=== PATIENT | female | born 1975 | race Caucasian/White ===

== ENCOUNTER 2017-10-10 18:39 | Inpatient (IN) | payer OTHER ==
[~2017-10-10] VITALS: Ht 162.6 cm; Wt 49.4 kg
[~2017-10-10 18:39] MED LIST: ALBU.083IS; ALBU.083IS IH; ALBU90OI; ALBU90OI INH; ALPR1 PO; ARIP10 PO; AZIT250; AZIT250 PO; BENZ100A PO; CARV3.125 PO; CLON.5 PO; CODBUTACEC PO; ESCI10 PO; Esgic Tablet1 EACH PO; FLUT1DIS2 INH; GUAI600T33 PO; Imitrex25 MG PO; LEVFLO500 PO; LEVO750 PO; LORA1 PO; LORA2; MONT10T PO; OXYACE5T PO; PRED10 PO; PRED20 PO; Prednisone20 MG PO; Prednisone50 MG PO; RXPRED10; SERT100 PO; SULTRIDS PO; SUMA25 PO; TIOT18 IH; TRAZ100 PO
[2017-10-10 19:10] LABS: BASOPHILS ABSOLUTE AUTO 0.05 K/mm3 (0.00-0.23); BASOPHILS PERCENT AUTO 0 % (0-2); EOSINOPHILS ABSOLUTE AUTO 0.01 K/mm3 (0.00-0.68); EOSINOPHILS PERCENT AUTO 0 % (0-6); Hematocrit 44.8 % (33.0-51.0); IMMATURE GRAN ABSOLUTE AUTO 0.07 K/mm3 (0.00-0.10); IMMATURE GRAN PERCENT AUTO 1 % (0-1); LYMPHOCYTES ABSOLUTE AUTO 1.54 K/mm3 (0.84-5.20); LYMPHOCYTES PERCENT AUTO 10 % (21-46); MONOCYTES ABSOLUTE AUTO 1.22 K/mm3 (0.16-1.47); MONOCYTES PERCENT AUTO 8 % (4-13); Mean Corpuscular HGB 27.6 pg (26.0-34.0); Mean Corpuscular HGB Conc 31.3 g/dL (31.5-36.5); Mean Corpuscular Volume 88 fL (80-100); Mean Platelet Volume 10.3 fL (9.1-12.4); NEUTROPHILS ABSOLUTE AUTO 12.66 K/mm3 (1.96-9.15); NEUTROPHILS PERCENT AUTO 81 % (41-73); Platelet Count 231 K/mm3 (150-400); RDW Coefficient Variation 13.7 % (11.7-14.2); Red Blood Cell Count 5.07 M/mm3 (3.80-5.20); White Blood Cell Count 15.55 K/mm3 (4.00-11.30)
[2017-10-10 19:17] LABS: PCO2 Arterial 58 mmHg (35-45); PO2 Arterial 43.1 mmHg (80-100); pH Blood Arterial 7.42 (7.35-7.45)
[2017-10-10 19:30] LABS: Alanine Aminotransfer (ALT/SGP 17 U/L (12-78); Albumin, Blood 2.7 g/dL (3.4-5.0); Albumin/Globulin Ratio 0.6 (0.8-1.8); Alk Phos 85 U/L (50-136); Anion Gap 6 mmol/L (6-16); Aspartate Aminotrans (AST/SGOT 15 U/L (12-37); Bilirubin, Total 0.5 mg/dL (0.1-1.0); Blood Urea Nitrogen 8 mg/dL (8-24); Bun/Creatinine Ratio 17.9 (12.0-20.0); CO2, Blood 37 mmol/L (21-32); Calcium, Blood 8.7 mg/dL (8.5-10.1); Chloride, Blood 95 mmol/L (98-108); Creatinine, Blood 0.45 mg/dL (0.40-1.00); Globulin, Blood 4.2 g/dL (2.2-4.0); Glomerular Filtration Rate >60 (60-); Glucose, Blood 119 mg/dL (70-99); Magnesium, Blood 1.9 mg/dL (1.6-2.4); Potassium, Blood 3.4 mmol/L (3.5-5.5); Sodium, Blood 138 mmol/L (136-145); Total Protein, Blood 6.9 g/dL (6.4-8.2); Troponin I <0.015 ng/mL (0.000-0.040)
[2017-10-10 23:02] LABS: Thyroid Stimulating Hormone 0.857 uIU/mL (0.360-4.800)
[2017-10-11 05:21] LABS: BASOPHILS ABSOLUTE AUTO 0.04 K/mm3 (0.00-0.23); BASOPHILS PERCENT AUTO 0 % (0-2); EOSINOPHILS ABSOLUTE AUTO 0.06 K/mm3 (0.00-0.68); EOSINOPHILS PERCENT AUTO 1 % (0-6); Hematocrit 44.7 % (33.0-51.0); Hemoglobin 13.8 g/dL (11.5-16.0); IMMATURE GRAN ABSOLUTE AUTO 0.05 K/mm3 (0.00-0.10); IMMATURE GRAN PERCENT AUTO 0 % (0-1); LYMPHOCYTES ABSOLUTE AUTO 2.56 K/mm3 (0.84-5.20); LYMPHOCYTES PERCENT AUTO 23 % (21-46); MONOCYTES ABSOLUTE AUTO 1.22 K/mm3 (0.16-1.47); MONOCYTES PERCENT AUTO 11 % (4-13); Mean Corpuscular HGB 27.3 pg (26.0-34.0); Mean Corpuscular HGB Conc 30.9 g/dL (31.5-36.5); Mean Corpuscular Volume 88 fL (80-100); Mean Platelet Volume 11.3 fL (9.1-12.4); NEUTROPHILS ABSOLUTE AUTO 7.38 K/mm3 (1.96-9.15); NEUTROPHILS PERCENT AUTO 65 % (41-73); Platelet Count 222 K/mm3 (150-400); RDW Coefficient Variation 13.9 % (11.7-14.2); RDW Standard Deviation 44.6 fL (35.1-46.3); Red Blood Cell Count 5.06 M/mm3 (3.80-5.20); White Blood Cell Count 11.31 K/mm3 (4.00-11.30)
[2017-10-11 05:53] LABS: Anion Gap 0 mmol/L (6-16); Blood Urea Nitrogen 10 mg/dL (8-24); Bun/Creatinine Ratio 24.3 (12.0-20.0); CO2, Blood 38 mmol/L (21-32); Calcium, Blood 8.7 mg/dL (8.5-10.1); Chloride, Blood 100 mmol/L (98-108); Creatinine, Blood 0.41 mg/dL (0.40-1.00); Glomerular Filtration Rate >60 (60-); Glucose, Blood 97 mg/dL (70-99); Sodium, Blood 138 mmol/L (136-145)
[2017-10-11] MEDS ORDERED: OTIPRIO1 ML LEFTEYE (10:44)
[2017-10-11] MEDS ORDERED: LEVO750 PO (10:45)
== END 2017-10-11 11:19 | disposition home or self-care (01) | DRG 193 ==
LOC: ER 18:39 → MEDS 21:05 → ENPENDDIS 10-11 09:30 → MEDS 10-11 11:19
PROVIDERS: Emergency Medicine; Internal Medicine
DX: J18.9 Pneumonia, unspecified organism (principal); J96.21 Acute and chronic respiratory failure with hypoxia; J44.0 Chronic obstructive pulmonary disease with (acute) lower respiratory infection; J96.12 Chronic respiratory failure with hypercapnia; J44.1 Chronic obstructive pulmonary disease with (acute) exacerbation; E87.6 Hypokalemia; H10.9 Unspecified conjunctivitis; R00.0 Tachycardia, unspecified; Z99.81 Dependence on supplemental oxygen; F31.9 Bipolar disorder, unspecified; F42.9 Obsessive-compulsive disorder, unspecified; F41.0 Panic disorder [episodic paroxysmal anxiety]; G47.33 Obstructive sleep apnea (adult) (pediatric); K21.9 Gastro-esophageal reflux disease without esophagitis; G43.909 Migraine, unspecified, not intractable, without status migrainosus; Z87.891 Personal history of nicotine dependence; Z88.5 Allergy status to narcotic agent; Z88.0 Allergy status to penicillin; Z88.7 Allergy status to serum and vaccine; Z79.51 Long term (current) use of inhaled steroids; Z79.52 Long term (current) use of systemic steroids; Z79.899 Other long term (current) drug therapy
CPT/HCPCS: 36415; 36600; 71046; 80048; 80053; 82803; 83605; 83735; 83880; 84443; 84484; 85025; 87040; 93005; 93010; 94640; 94762; 99285; J1650

== ENCOUNTER 2018-01-31 13:32 | Emergency (ER) | payer OTHER ==
[~2018-01-31] VITALS: Ht 162.6 cm; Wt 49.9 kg
[~2018-01-31 13:32] MED LIST changes: +OTIPRIO1 ML LEFTEYE
[2018-01-31 14:11] LABS: BASOPHILS ABSOLUTE AUTO 0.02 K/mm3 (0.00-0.23); BASOPHILS PERCENT AUTO 0 % (0-2); EOSINOPHILS ABSOLUTE AUTO 0.09 K/mm3 (0.00-0.68); EOSINOPHILS PERCENT AUTO 2 % (0-6); Hemoglobin 17.3 g/dL (11.5-16.0); IMMATURE GRAN ABSOLUTE AUTO 0.01 K/mm3 (0.00-0.10); IMMATURE GRAN PERCENT AUTO 0 % (0-1); LYMPHOCYTES ABSOLUTE AUTO 1.89 K/mm3 (0.84-5.20); LYMPHOCYTES PERCENT AUTO 37 % (21-46); MONOCYTES ABSOLUTE AUTO 0.41 K/mm3 (0.16-1.47); MONOCYTES PERCENT AUTO 8 % (4-13); Mean Corpuscular HGB 27.6 pg (26.0-34.0); Mean Corpuscular HGB Conc 29.9 g/dL (31.5-36.5); Mean Corpuscular Volume 92 fL (80-100); Mean Platelet Volume 11.2 fL (9.1-12.4); NEUTROPHILS ABSOLUTE AUTO 2.67 K/mm3 (1.96-9.15); NEUTROPHILS PERCENT AUTO 52 % (41-73); Platelet Count 150 K/mm3 (150-400); RDW Coefficient Variation 13.5 % (11.7-14.2); RDW Standard Deviation 45.7 fL (35.1-46.3); Red Blood Cell Count 6.27 M/mm3 (3.80-5.20); White Blood Cell Count 5.09 K/mm3 (4.00-11.30)
[2018-01-31 14:13] LABS: Hematocrit 57.8 % (33.0-51.0)
== END 2018-01-31 15:17 | disposition home or self-care (01) ==
LOC: ER 13:32
PROVIDERS: Emergency Medicine
DX: G43.909 Migraine, unspecified, not intractable, without status migrainosus (principal); J44.9 Chronic obstructive pulmonary disease, unspecified; F31.9 Bipolar disorder, unspecified; F17.200 Nicotine dependence, unspecified, uncomplicated; Z88.0 Allergy status to penicillin; Z88.5 Allergy status to narcotic agent; Z88.7 Allergy status to serum and vaccine; Z79.51 Long term (current) use of inhaled steroids; Z79.899 Other long term (current) drug therapy
CPT/HCPCS: 85025; 96372; 99284-25; J0780; J1200; J1885

== ENCOUNTER 2018-06-10 02:35 | Emergency (ER) | payer OTHER ==
[~2018-06-10] VITALS: Ht 162.6 cm; Wt 49.9 kg
== END 2018-06-10 04:00 | disposition home or self-care (01) ==
LOC: ER 02:35
DX: R59.0 Localized enlarged lymph nodes (principal); Z88.0 Allergy status to penicillin; Z88.5 Allergy status to narcotic agent; Z88.8 Allergy status to other drugs, medicaments and biological substances; Z79.899 Other long term (current) drug therapy; J44.9 Chronic obstructive pulmonary disease, unspecified; F32.9 Major depressive disorder, single episode, unspecified; F17.200 Nicotine dependence, unspecified, uncomplicated
CPT/HCPCS: 71046; 96372; 99283-25; J1885

== ENCOUNTER 2018-11-13 13:09 | Inpatient (IN) | payer OTHER ==
[~2018-11-13] VITALS: Ht 162.6 cm; Wt 45.0 kg
[~2018-11-13 13:09] MED LIST changes: -ALBU90OI; -TIOT18 IH; +TIOT18 INH
[2018-11-13 13:56] LABS: PCO2 Arterial 91.6 mmHg (35-45); PO2 Arterial 48.4 mmHg (80-100)
[2018-11-13 14:32] LABS: BASOPHILS ABSOLUTE AUTO 0.03 K/mm3 (0.00-0.23); BASOPHILS PERCENT AUTO 0 % (0-2); EOSINOPHILS PERCENT AUTO 1 % (0-6); Hemoglobin 15.9 g/dL (11.5-16.0); IMMATURE GRAN ABSOLUTE AUTO 0.05 K/mm3 (0.00-0.10); IMMATURE GRAN PERCENT AUTO 1 % (0-1); LYMPHOCYTES ABSOLUTE AUTO 0.99 K/mm3 (0.84-5.20); LYMPHOCYTES PERCENT AUTO 11 % (21-46); MONOCYTES ABSOLUTE AUTO 0.52 K/mm3 (0.16-1.47); MONOCYTES PERCENT AUTO 6 % (4-13); Mean Corpuscular HGB Conc 28.1 g/dL (31.5-36.5); Mean Corpuscular Volume 103 fL (80-100); Mean Platelet Volume 10.8 fL (9.1-12.4); NEUTROPHILS ABSOLUTE AUTO 7.39 K/mm3 (1.96-9.15); NEUTROPHILS PERCENT AUTO 81 % (41-73); Platelet Count 153 K/mm3 (150-400); RDW Coefficient Variation 13.8 % (11.7-14.2); RDW Standard Deviation 53.4 fL (35.1-46.3); Red Blood Cell Count 5.48 M/mm3 (3.80-5.20); White Blood Cell Count 9.08 K/mm3 (4.00-11.30)
[2018-11-13 14:55] LABS: Alanine Aminotransfer (ALT/SGP 19 U/L (12-78); Albumin/Globulin Ratio 0.6 (0.8-1.8); Alk Phos 92 U/L (50-136); Aspartate Aminotrans (AST/SGOT 13 U/L (12-37); Bilirubin, Total 0.4 mg/dL (0.1-1.0); Blood Urea Nitrogen 12 mg/dL (8-24); Bun/Creatinine Ratio 33.4 (12.0-20.0); Calcium, Blood 9.3 mg/dL (8.5-10.1); Chloride, Blood 92 mmol/L (98-108); Creatinine, Blood 0.36 mg/dL (0.40-1.00); Globulin, Blood 4.8 g/dL (2.2-4.0); Glomerular Filtration Rate >60 (60-); Glucose, Blood 96 mg/dL (70-99); Potassium, Blood 3.8 mmol/L (3.5-5.5); Sodium, Blood 138 mmol/L (136-145); Total Protein, Blood 7.8 g/dL (6.4-8.2)
[2018-11-13 14:58] LABS: Anion Gap Unable to Calculate mmol/L (6-16)
[2018-11-13 14:59] LABS: CO2, Blood >45 mmol/L (21-32)
[2018-11-13 15:06] LABS: Hematocrit 56.6 % (33.0-51.0)
[2018-11-13 15:57] LABS: International Normalized Ratio 0.93; Prothrombin Time Results 9.8 Sec (9.7-11.5)
[2018-11-13] MEDS ORDERED: Zithromax250 MG PO (17:16)
[2018-11-13 17:57] LABS: Base Excess Venous 19.1 mmol/L; Bicarbonate Venous 37.4 mmol/L (24.0-30.0); PCO2 Venous 97.7 mmHg (38-42); PO2 Venous 53.3 mmHg (38-42); pH Blood Venous 7.28 (7.34-7.37)
[2018-11-13] MEDS ORDERED: BUDE6HFA INH (18:32)
[2018-11-13] MEDS ORDERED: DALIRESP500 MCG PO (18:34)
[2018-11-13] MEDS ORDERED: ALBU2.5V5 NEB (18:34)
[2018-11-13] MEDS ORDERED: THEO300ERA PO (18:35)
[2018-11-13] MEDS ORDERED: Flonase 0.05% N16 GM (18:45)
[2018-11-13 19:31] LABS: Theophylline <2.0 ug/mL (10.0-20.0)
[2018-11-14 00:05] LABS: Source, Urine Catheter
[2018-11-14 00:10] LABS: Bilirubin, Urine Neg (Neg); Blood, Urine Neg (Neg); Glucose Qualitative, Urine Neg (Neg); Ketones, Urine Neg (Neg); Leukocyte Esterase, Urine Neg (Neg); Nitrite, Urine Neg (Neg); Protein, Urine Neg (Neg); Urobilinogen, Urine NORM (Normal)
[2018-11-14 00:18] LABS: Appearance, Urine Clear (Clear); Color, Urine Yellow (P-Yellow)
[2018-11-14 00:24] LABS: U Amphetamine Screen Not Detected; U Barbituate Screen Not Detected; U Benzodiazapine Screen Not Detected; U Cocaine Screen Not Detected; U Methadone Screen Not Detected; U Methamphetamine Screen Not Detected; U Opiates Screen Not Detected
[2018-11-14 00:25] LABS: U Buprenorphine Screen Not Detected; U Cannabinoids Screen DETECTED; U Oxycodone Screen Not Detected; U Phencyclidine Screen Not Detected; U Propoxyphene Screen Not Detected
--- NOTE | 2018-11-14 02:41 | NUR ---
PT ARRIVED TO UNIT VIA STRETCHER FROM ED; HANDOFF FROM SHAVONNE CARMICHAEL; PT STOOD AND TRANSFERED INDEPENDENTLY TO HOSPITAL BED IN ROOM; PT ON 5 LPM NC; O2 SATS 89%; PT ON BIPAP FIO2 40%;18 G IN L AC INFUSING APPROPRIATELY; RECIEVED 1000ML NS; PT STATES SHE USES RECREATIONAL DRUGS; PT STATES SHE DOES NOT LIKE TO EAT MANY THINGS, BUT STATED SHE WAS HUNGRY; SHE CONSUMED ONE JELLO; PT SLEEPING IN BETWEEN INTERVENTIONS; UA COLLECTED AND SENT TO LAB; BED IN LOWEST POSITION; BED ALARM ON; CALL LIGHT WITHIN REACH; WILL CONTINUE TO MONITOR AND ASSESS UNTIL HANDOFF TO DAY SHIFT RN.
[2018-11-14 05:25] LABS: PO2 Arterial 62.3 mmHg (80-100); pH Blood Arterial 7.33 (7.35-7.45)
[2018-11-14 05:26] LABS: PCO2 Arterial 88.2 mmHg (35-45)
[2018-11-14] MEDS ORDERED: ACET325 PO (13:01)
[2018-11-14] MEDS ORDERED: GUAI600T33 PO (13:02)
[2018-11-14] MEDS ORDERED: AZIT500 PO (13:02)
[2018-11-14] MEDS ORDERED: NICO21TP TOP (13:03)
[2018-11-14] MEDS ORDERED: PRED20 PO (13:03)
--- NOTE | 2018-11-14 14:21 | NUR ---
SUMMARY/DISCHARGE PT BEING DISCHARGED TO HOME, PT VERBALIZED UNDERSTANDING OF DISCHARGE INSTRUCTIONS REGARDING MEDICATIONS AND FOLLOW UPS, PT REPORTS SHE ALREADY HAS AN APPOINTMENT WITH [facility]CKN[facility] FAXED TO PHARMACY OF CHOICE, CURRENTLY AWAITING HER MOTHER TO TAKE HER HOME
--- NOTE | 2018-11-14 14:42 | NUR ---
PT TAKEN OUT SAFELY VIA WHEELCHAIR
== END 2018-11-14 14:40 | disposition home or self-care (01) | DRG 189 ==
LOC: ER 13:09 → PCU 18:35
PROVIDERS: Emergency Medicine; Nurse Practitioner Acute Care; Physician Assistant; ADMIT Hospitalist
PROC: 5A09357 Assistance with Respiratory Ventilation, Less than 24 Consecutive Hours, Continuous Positive Airway Pressure (ICD-10-PCS; principal; 2018-11-13)
DX: J96.21 Acute and chronic respiratory failure with hypoxia (principal); J18.9 Pneumonia, unspecified organism; R64 Cachexia; Z68.1 Body mass index [BMI] 19.9 or less, adult; J96.22 Acute and chronic respiratory failure with hypercapnia; F31.9 Bipolar disorder, unspecified; G47.33 Obstructive sleep apnea (adult) (pediatric); Z99.81 Dependence on supplemental oxygen; F17.210 Nicotine dependence, cigarettes, uncomplicated; G43.909 Migraine, unspecified, not intractable, without status migrainosus; J43.9 Emphysema, unspecified
CPT/HCPCS: 36415; 36600; 71260; 80053; 80198; 81003; 82803; 83605; 84145; 85025; 85610; 85730; 87040; 87086; 87449; 93005; 93010; 94640; 94660; 94762; 99285-25; J1650; J7030; J7512; Q9967

== ENCOUNTER 2019-01-14 15:09 | Emergency (ER) | payer OTHER ==
[~2019-01-14] VITALS: Ht 165.1 cm; Wt 65.8 kg
[~2019-01-14 15:09] MED LIST changes: +ACET325 PO; +ALBU2.5V5 NEB; +AZIT500 PO; +BUDE6HFA INH; +DALIRESP500 MCG PO; +Flonase 0.05% N16 GM; +NICO21TP TOP; +THEO300ERA PO; +Zithromax250 MG PO
[2019-01-14 16:15] LABS: Calcium, Ionized (POC) 1.03 mmol/L (1.10-1.46); Chloride (POC) 99 mmol/L (98-108); Creatinine (POC) 0.3 mg/dL (0.6-1.0); Glucose (ISTAT POC) 123 mg/dL (70-99); Hemoglobin (POC) 13.6 g/dL (12.0-16.0); Potassium (POC) 3.7 mmol/L (3.5-5.5); Sodium (POC) 138 mmol/L (135-148); Total CO2 (POC) 30 mmol/L (21-32)
== END 2019-01-14 17:20 | disposition home or self-care (01) ==
LOC: ER 15:09
PROVIDERS: Physician Assistant
DX: K04.7 Periapical abscess without sinus (principal); J44.9 Chronic obstructive pulmonary disease, unspecified; F31.9 Bipolar disorder, unspecified; Z79.899 Other long term (current) drug therapy; Z88.0 Allergy status to penicillin
CPT/HCPCS: 36415; 70487; 80047; 85014; 96365; 96365-59; 96375-59; 99284-25; A9270-GY; J1885; Q9967

== ENCOUNTER 2019-01-15 09:13 | Emergency (ER) | payer OTHER ==
[~2019-01-15] VITALS: Ht 162.6 cm; Wt 45.4 kg
== END 2019-01-15 10:40 | disposition home or self-care (01) ==
LOC: ER 09:13
DX: K04.7 Periapical abscess without sinus (principal); J44.9 Chronic obstructive pulmonary disease, unspecified; F31.9 Bipolar disorder, unspecified; Z87.891 Personal history of nicotine dependence; Z88.0 Allergy status to penicillin; Z88.6 Allergy status to analgesic agent; Z88.7 Allergy status to serum and vaccine; Z79.899 Other long term (current) drug therapy; K02.9 Dental caries, unspecified
CPT/HCPCS: 96365; 96375; 99281-25; A9270; J1885

== ENCOUNTER 2019-01-16 08:10 | Emergency (ER) | payer OTHER ==
[~2019-01-16] VITALS: Ht 157.5 cm; Wt 54.4 kg
== END 2019-01-16 09:40 | disposition home or self-care (01) ==
LOC: ER 08:10
DX: K04.7 Periapical abscess without sinus (principal); Z76.0 Encounter for issue of repeat prescription; J44.9 Chronic obstructive pulmonary disease, unspecified; F31.9 Bipolar disorder, unspecified; Z87.891 Personal history of nicotine dependence; Z88.0 Allergy status to penicillin; Z79.899 Other long term (current) drug therapy
CPT/HCPCS: 96365

== ENCOUNTER 2019-06-13 01:46 | Inpatient (IN) | payer OTHER ==
[~2019-06-13] VITALS: Ht 162.6 cm; Wt 45.0 kg
[~2019-06-13 01:46] MED LIST changes: +ALBU2.5V5 INH; -ALBU2.5V5 NEB
[2019-06-13 03:23] LABS: PCO2 Arterial 76.8 mmHg (35-45); PO2 Arterial 65.7 mmHg (80-100); pH Blood Arterial 7.36 (7.35-7.45)
[2019-06-13 03:26] LABS: BASOPHILS ABSOLUTE AUTO 0.03 K/mm3 (0.00-0.23); BASOPHILS PERCENT AUTO 0 % (0-2); EOSINOPHILS PERCENT AUTO 0 % (0-6); Hemoglobin 13.3 g/dL (11.5-16.0); IMMATURE GRAN ABSOLUTE AUTO 0.05 K/mm3 (0.00-0.10); IMMATURE GRAN PERCENT AUTO 0 % (0-1); LYMPHOCYTES ABSOLUTE AUTO 2.01 K/mm3 (0.84-5.20); LYMPHOCYTES PERCENT AUTO 15 % (21-46); MONOCYTES ABSOLUTE AUTO 0.81 K/mm3 (0.16-1.47); MONOCYTES PERCENT AUTO 6 % (4-13); Mean Corpuscular HGB 28.1 pg (26.0-34.0); Mean Corpuscular HGB Conc 30.2 g/dL (31.5-36.5); Mean Corpuscular Volume 93 fL (80-100); Mean Platelet Volume 10.9 fL (9.1-12.4); NEUTROPHILS ABSOLUTE AUTO 10.39 K/mm3 (1.96-9.15); NEUTROPHILS PERCENT AUTO 78 % (41-73); Platelet Count 125 K/mm3 (150-400); RDW Coefficient Variation 13.4 % (11.7-14.2); RDW Standard Deviation 46.2 fL (35.1-46.3); Red Blood Cell Count 4.73 M/mm3 (3.80-5.20); White Blood Cell Count 13.29 K/mm3 (4.00-11.30)
[2019-06-13 03:41] LABS: Alanine Aminotransfer (ALT/SGP 22 U/L (12-78); Albumin, Blood 2.5 g/dL (3.4-5.0); Albumin/Globulin Ratio 0.6 (0.8-1.8); Alk Phos 62 U/L (50-136); Anion Gap 2 mmol/L (6-16); Aspartate Aminotrans (AST/SGOT 21 U/L (12-37); Bilirubin, Total 0.6 mg/dL (0.1-1.0); Blood Urea Nitrogen 12 mg/dL (8-24); Bun/Creatinine Ratio 33.1 (12.0-20.0); CO2, Blood 40 mmol/L (21-32); Calcium, Blood 8.1 mg/dL (8.5-10.1); Chloride, Blood 92 mmol/L (98-108); Creatinine, Blood 0.36 mg/dL (0.40-1.00); Globulin, Blood 4.1 g/dL (2.2-4.0); Glomerular Filtration Rate >60 (60-); Glucose, Blood 115 mg/dL (70-99); Sodium, Blood 134 mmol/L (136-145); Total Protein, Blood 6.6 g/dL (6.4-8.2)
[2019-06-13 05:02] LABS: Influenza A Negative (NEGATIVE); Influenza B Negative (NEGATIVE)
[2019-06-13 08:41] LABS: PCO2 Arterial 82 mmHg (35-45); PO2 Arterial 59.5 mmHg (80-100); pH Blood Arterial 7.33 (7.35-7.45)
[2019-06-13 17:00] LABS: Adenovirus Not Detected (NOT DETECT); Bordetella pertussis Not Detected (NOT DETECT); Chlamydophila pneumoniae Not Detected (NOT DETECT); Coronavirus 229E Not Detected (NOT DETECT); Coronavirus HKU1 Not Detected (NOT DETECT); Coronavirus NL63 Not Detected (NOT DETECT); Coronavirus OC43 Not Detected (NOT DETECT); Human Metapneumovirus Not Detected (NOT DETECT); Human Rhinovirus/Enterovirus Not Detected (NOT DETECT); Influenza A Not Detected (NOT DETECT); Influenza A/2009-H1 Not Detected (NOT DETECT); Influenza A/H1 Not Detected (NOT DETECT); Influenza A/H3 Not Detected (NOT DETECT); Influenza B Not Detected (NOT DETECT); Mycoplasma pneumoniae Not Detected (NOT DETECT); Parainfluenza Virus 1 Not Detected (NOT DETECT); Parainfluenza Virus 2 Not Detected (NOT DETECT); Parainfluenza Virus 3 Not Detected (NOT DETECT); Parainfluenza Virus 4 Not Detected (NOT DETECT); Respiratory Syncytial Virus Not Detected (NOT DETECT)
[2019-06-14 05:02] LABS: Hematocrit 42.3 % (33.0-51.0); Hemoglobin 12.5 g/dL (11.5-16.0); Mean Corpuscular HGB 27.9 pg (26.0-34.0); Mean Corpuscular HGB Conc 29.6 g/dL (31.5-36.5); Mean Corpuscular Volume 94 fL (80-100); Mean Platelet Volume 11.1 fL (9.1-12.4); Platelet Count 132 K/mm3 (150-400); RDW Coefficient Variation 13.6 % (11.7-14.2); RDW Standard Deviation 47.8 fL (35.1-46.3); Red Blood Cell Count 4.48 M/mm3 (3.80-5.20); White Blood Cell Count 8.55 K/mm3 (4.00-11.30)
[2019-06-14 06:46] LABS: Albumin, Blood 2.3 g/dL (3.4-5.0); Anion Gap 0 mmol/L (6-16); Blood Urea Nitrogen 11 mg/dL (8-24); Bun/Creatinine Ratio 32.1 (12.0-20.0); CO2, Blood 41 mmol/L (21-32); Calcium, Blood 8.7 mg/dL (8.5-10.1); Chloride, Blood 96 mmol/L (98-108); Creatinine, Blood 0.34 mg/dL (0.40-1.00); Glomerular Filtration Rate >60 (60-); Glucose, Blood 124 mg/dL (70-99); Magnesium, Blood 2.4 mg/dL (1.6-2.4); Phosphorus, Blood 2.6 mg/dL (2.5-4.9); Sodium, Blood 137 mmol/L (136-145)
[2019-06-14 08:03] LABS: PCO2 Arterial 75.5 mmHg (35-45); PO2 Arterial 71.3 mmHg (80-100); pH Blood Arterial 7.37 (7.35-7.45)
[2019-06-15 04:57] LABS: BASOPHILS ABSOLUTE AUTO 0.01 K/mm3 (0.00-0.23); BASOPHILS PERCENT AUTO 0 % (0-2); EOSINOPHILS PERCENT AUTO 0 % (0-6); Hematocrit 42.1 % (33.0-51.0); Hemoglobin 12.4 g/dL (11.5-16.0); IMMATURE GRAN ABSOLUTE AUTO 0.05 K/mm3 (0.00-0.10); IMMATURE GRAN PERCENT AUTO 1 % (0-1); LYMPHOCYTES ABSOLUTE AUTO 1.09 K/mm3 (0.84-5.20); LYMPHOCYTES PERCENT AUTO 11 % (21-46); MONOCYTES PERCENT AUTO 2 % (4-13); Mean Corpuscular HGB 27.6 pg (26.0-34.0); Mean Corpuscular HGB Conc 29.5 g/dL (31.5-36.5); Mean Corpuscular Volume 94 fL (80-100); Mean Platelet Volume 11.6 fL (9.1-12.4); NEUTROPHILS ABSOLUTE AUTO 8.97 K/mm3 (1.96-9.15); NEUTROPHILS PERCENT AUTO 87 % (41-73); Platelet Count 193 K/mm3 (150-400); RDW Coefficient Variation 13.8 % (11.7-14.2); RDW Standard Deviation 47.7 fL (35.1-46.3); Red Blood Cell Count 4.49 M/mm3 (3.80-5.20); White Blood Cell Count 10.32 K/mm3 (4.00-11.30)
[2019-06-15 05:18] LABS: Albumin, Blood 2.3 g/dL (3.4-5.0); Anion Gap 1 mmol/L (6-16); Blood Urea Nitrogen 16 mg/dL (8-24); Bun/Creatinine Ratio 43.1 (12.0-20.0); CO2, Blood 38 mmol/L (21-32); Calcium, Blood 8.8 mg/dL (8.5-10.1); Chloride, Blood 98 mmol/L (98-108); Creatinine, Blood 0.37 mg/dL (0.40-1.00); Glomerular Filtration Rate >60 (60-); Glucose, Blood 120 mg/dL (70-99); Phosphorus, Blood 3.2 mg/dL (2.5-4.9); Potassium, Blood 4.7 mmol/L (3.5-5.5); Sodium, Blood 137 mmol/L (136-145)
[2019-06-16] MEDS ORDERED: AZIT500 PO (16:11)
[2019-06-16] MEDS ORDERED: PRED20 PO (16:11)
== END 2019-06-16 16:54 | disposition home or self-care (01) | DRG 189 ==
LOC: ER 01:46 → MEDS 01:47
PROVIDERS: Emergency Medicine; Internal Medicine; ADMIT Internal Medicine
DX: J96.01 Acute respiratory failure with hypoxia (principal); J18.9 Pneumonia, unspecified organism; J44.1 Chronic obstructive pulmonary disease with (acute) exacerbation; R65.10 Systemic inflammatory response syndrome (SIRS) of non-infectious origin without acute organ dysfunction; G47.33 Obstructive sleep apnea (adult) (pediatric); Z99.81 Dependence on supplemental oxygen; F31.9 Bipolar disorder, unspecified; Z87.891 Personal history of nicotine dependence; J96.02 Acute respiratory failure with hypercapnia; E87.6 Hypokalemia
CPT/HCPCS: 0099U; 36415; 36600; 71045; 80053; 80069; 82803; 83605; 83735; 84145; 85025; 85027; 87040; 87804; 90686; 93005; 93010; 94640; 94644; 94660; 94664; 94667; 94760; 94762; 96361; 96365; 96372; 96375; 96376; 98960; 99285-25; 99407; G0008; G0378; J1650; J1956; J2920; J2930; J3475

== ENCOUNTER 2020-12-16 09:44 | Inpatient (IN) | payer OTHER ==
[~2020-12-16] VITALS: Ht 160 cm; Wt 61.2 kg
[2020-12-16 10:00] LABS: Calcium, Ionized (POC) 1.13 mmol/L (1.10-1.46); Chloride (POC) 85 mmol/L (98-108); Glucose (ISTAT POC) 195 mg/dL (70-99); Hemoglobin (POC) 17.3 g/dL (12.0-16.0); Potassium (POC) 5.1 mmol/L (3.5-5.5); Sodium (POC) 137 mmol/L (135-148); Total CO2 (POC) 44 mmol/L (21-32)
[2020-12-16 10:10] LABS: Base Excess Venous 21.1 mmol/L; Bicarbonate Venous 39.2 mmol/L (24.0-30.0); PO2 Venous 53.1 mmHg (38-42); pH Blood Venous 7.25 (7.34-7.37)
[2020-12-16 10:11] LABS: PCO2 Venous > 105 mmHg (38-42)
[2020-12-16 10:21] LABS: BASOPHILS ABSOLUTE AUTO 0.05 K/mm3 (0.00-0.23); BASOPHILS PERCENT AUTO 0 % (0-2); EOSINOPHILS ABSOLUTE AUTO 0.02 K/mm3 (0.00-0.68); EOSINOPHILS PERCENT AUTO 0 % (0-6); Hematocrit 51.5 % (33.0-51.0); Hemoglobin 14.4 g/dL (11.5-16.0); IMMATURE GRAN ABSOLUTE AUTO 0.08 K/mm3 (0.00-0.10); IMMATURE GRAN PERCENT AUTO 1 % (0-1); LYMPHOCYTES ABSOLUTE AUTO 1.17 K/mm3 (0.84-5.20); LYMPHOCYTES PERCENT AUTO 10 % (21-46); MONOCYTES ABSOLUTE AUTO 0.83 K/mm3 (0.16-1.47); MONOCYTES PERCENT AUTO 7 % (4-13); Mean Corpuscular HGB 28.3 pg (26.0-34.0); Mean Corpuscular Volume 101 fL (80-100); NEUTROPHILS ABSOLUTE AUTO 9.44 K/mm3 (1.96-9.15); NEUTROPHILS PERCENT AUTO 81 % (41-73); RDW Coefficient Variation 12.3 % (11.7-14.2); Red Blood Cell Count 5.09 M/mm3 (3.80-5.20); White Blood Cell Count 11.59 K/mm3 (4.00-11.30)
[2020-12-16 10:33] LABS: Troponin I <0.015 ng/mL (0.000-0.040)
[2020-12-16 10:37] LABS: Alanine Aminotransfer (ALT/SGP 20 U/L (12-78); Albumin, Blood 3.5 g/dL (3.4-5.0); Albumin/Globulin Ratio 0.9 (0.8-1.8); Alk Phos 82 U/L (50-136); Aspartate Aminotrans (AST/SGOT 21 U/L (12-37); Bilirubin, Total 0.9 mg/dL (0.1-1.0); Blood Urea Nitrogen 32 mg/dL (8-24); Calcium, Blood 8.8 mg/dL (8.5-10.1); Chloride, Blood 92 mmol/L (98-108); Glomerular Filtration Rate >60 (60-); Glucose, Blood 192 mg/dL (70-99); Sodium, Blood 135 mmol/L (136-145); Total Protein, Blood 7.5 g/dL (6.4-8.2)
[2020-12-16 10:43] LABS: Anion Gap Unable to Calculate mmol/L (6-16)
[2020-12-16 10:44] LABS: CO2, Blood >45 mmol/L (21-32)
[2020-12-16 10:45] LABS: Mean Platelet Volume 12.1 fL (9.1-12.4)
[2020-12-16 10:51] LABS: Platelet Count 90 K/mm3 (150-400)
[2020-12-16 11:04] LABS: SARS-Cov-2 (COVID-19) PCR, MMC NEGATIVE (NEGATIVE)
[2020-12-16 11:04] LABS: Base Excess Venous 21.6 mmol/L; Bicarbonate Venous 39.2 mmol/L (24.0-30.0); PO2 Venous 81.5 mmHg (38-42); pH Blood Venous 7.19 (7.34-7.37)
[2020-12-16 11:06] LABS: PCO2 Venous > 105 mmHg (38-42)
[2020-12-16 11:59] LABS: Bicarbonate Venous 38.4 mmol/L (24.0-30.0); PCO2 Venous 102 mmHg (38-42); PO2 Venous 95.4 mmHg (38-42); pH Blood Venous 7.27 (7.34-7.37)
[2020-12-16 12:00] LABS: Base Excess Venous 19.8 mmol/L
--- NOTE | 2020-12-16 14:00 | NUR ---
Patient arrived via gurney on bipap to ICU 6, She was responsive with sternal issac nd would go back oput if left alone and is squirming in bed. Dr Santos in room on arrival and BIPAP at 20/10 50% sats 80%'s and he made some adjustments to /14 at 75% and sats low 90%. She has temp graves in place and has low grade temp 100.6. IV access and will attemp PICC .
[2020-12-16 15:51] LABS: U Amphetamine Screen DETECTED; U Cannabinoids Screen DETECTED; U Methamphetamine Screen DETECTED
[2020-12-16 15:52] LABS: U Barbituate Screen Not Detected; U Benzodiazapine Screen Not Detected; U Buprenorphine Screen Not Detected; U Cocaine Screen Not Detected; U Methadone Screen Not Detected; U Opiates Screen Not Detected; U Oxycodone Screen Not Detected; U Phencyclidine Screen Not Detected; U Propoxyphene Screen Not Detected
--- NOTE | 2020-12-16 16:00 | NUR ---
Patient remains anxious and pulling at lines and tubes and placed in bilateral soft wrist restrainsts. BIPAP settings 24/14 and 75% FiO2 and sats >90%. PICC line placed in FREDDY dRessing intact and site WNL's and is infusing Abx and will start LR and Precedex. Labs abd cultures sent, Tox screen done.
--- NOTE | 2020-12-16 18:55 | NUR ---
Assumed care pt at 1700. Pt had sm amt of emesis while wearing bipap mask. No apparent aspiration noted. Pt. was able to vomit around the mask mostly. Pt. more awake and talking but speech incoherent at times. O2 chg'd to high flow at 30L/55%. Sao2 adeq. 184- O2 increased to 60%.SaO2 84-88% 1855-RT chd'd to 40L/70% with Sao2 at 93%. Restraints removed at 1714.
--- NOTE | 2020-12-16 19:35 | NUR ---
LAB STATES OK TO ADD ON URINALYSIS TO URINE THAT THEY RECEIVED EARLIER TODAY. WILL CALL BACK FOR MORE URINE IF THERE IS NOT ENOUGH FOR THEM TO RUN THE TEST.
--- NOTE | 2020-12-16 20:40 | NUR ---
PATIENT WAKES TO VERBAL STIMULATION. ORIENTED TO HER FIRST NAME AND BIRTHDAY ONLY. HAS GARBLED NONSENSICAL SPEECH AT TIMES. DENIES PAIN. ON HEATED HIGH FLOW NASAL CANNULA AT 40L FIO2 70%. SINUS TACH ON TELE IN THE 1TEENS-LOW 120'S. NPO. ORAL CARE PROVIDED. MEDINA DRAINING. REPOSITIONED HER. SHE IS NOT PULLING AT LINES OR NASAL CANNULA AT THIS TIME. CALL LIGHT IN REACH. BED ALARM ON.
[2020-12-16 21:20] LABS: Source, Urine Catheter
[2020-12-16 21:22] LABS: Appearance, Urine Turbid (Clear); Bilirubin, Urine Neg (Neg); Blood, Urine 3+ (Neg); Color, Urine Yellow (P-Yellow); Glucose Qualitative, Urine Neg (Neg); Ketones, Urine Neg (Neg); Leukocyte Esterase, Urine Neg (Neg); Nitrite, Urine Neg (Neg); Protein, Urine 3+ (Neg); Specific Gravity, Urine 1.025 (1.003-1.022); Urobilinogen, Urine NORM (Normal)
[2020-12-16 21:30] LABS: Amorphous Heavy (0-Heavy); Bacteria Rare /hpf; Red Blood Cells, Urine 0-2 /hpf (0-2); Squamous Epithelial Cells Few /hpf (Few); White Blood Cells, Urine Not Seen /hpf (0-5)
--- NOTE | 2020-12-17 00:30 | NUR ---
RESPIRATORY THERAPY ATTEMPTED TO WEAN PATIENT DOWN TO FIO2 65% WITH 40L O2. SPO2 DROPPED AND MAINTAINED IN THE UPPER 80'S. SHE INCREASED PATIENT TO FIO2 70%, BUT PATIENT WAS STILL NOT MAINTAINING SATS IN THE LOW 90'S. SHE INCREASED FIO2 TO 75% AND PATIENT WAS ABLE TO MAINTAIN SATS IN THE 90'S. THEN SPO2 WAS NOTED TO DROP TO UPPER 70'S WHILE STAFF WAS OUT OF THE ROOM. PATIENT HAD PULLED NASAL CANNULA AND HAD DISCONNECTED IT FROM THE TUBING. RECONNECTED IT AND ENCOURAGED PATIENT TO TAKE DEEP BREATHS THROUGH HER NOSE. SHE WAS ABLE TO FOLLOW THIS AND SPO2 INCREASED TO LOW 90'S AFTER APPROX 5 MINUTES. REMAINS ON HIGH FLOW NC WITH 40L AND FIO2 75%.
--- NOTE | 2020-12-17 02:00 | NUR ---
AT APPROX 0100 MEASUREMENT AND SENSING TECHNICIANSHAVONNE FISHER CALLED ME AND NOTIFIED ME THAT PATIENT HAD PULLED OUT HER PICC LINE. NATALIA AND ANOTHER RN CLEANED UP LINEN AND PLACED ANOTHER IV. PATIENT CONTINUES TO TRY TO PULL AT LINES AND AT HER HIGH FLOW NC. NOTIFIED DR. KEY AND ORDERS RECEIVED FOR SOFT BILATERAL WRIST RESTRAINTS.
[2020-12-17 03:31] LABS: Hematocrit 46.3 % (33.0-51.0); Hemoglobin 13.1 g/dL (11.5-16.0); Mean Corpuscular HGB 28.2 pg (26.0-34.0); Mean Corpuscular HGB Conc 28.3 g/dL (31.5-36.5); Mean Corpuscular Volume 100 fL (80-100); Mean Platelet Volume 11.1 fL (9.1-12.4); Platelet Count 87 K/mm3 (150-400); RDW Coefficient Variation 12.5 % (11.7-14.2); RDW Standard Deviation 46.5 fL (35.1-46.3); Red Blood Cell Count 4.64 M/mm3 (3.80-5.20); White Blood Cell Count 5.74 K/mm3 (4.00-11.30)
[2020-12-17 03:54] LABS: Alanine Aminotransfer (ALT/SGP 17 U/L (12-78); Albumin, Blood 3.1 g/dL (3.4-5.0); Albumin/Globulin Ratio 0.8 (0.8-1.8); Alk Phos 65 U/L (50-136); Anion Gap 0 mmol/L (6-16); Aspartate Aminotrans (AST/SGOT 13 U/L (12-37); Bilirubin, Total 0.5 mg/dL (0.1-1.0); Blood Urea Nitrogen 29 mg/dL (8-24); Bun/Creatinine Ratio 71.8 (12.0-20.0); CO2, Blood 43 mmol/L (21-32); Calcium, Blood 8.7 mg/dL (8.5-10.1); Chloride, Blood 96 mmol/L (98-108); Glomerular Filtration Rate >60 (60-); Glucose, Blood 114 mg/dL (70-99); Magnesium, Blood 1.9 mg/dL (1.6-2.4); Phosphorus, Blood 2.1 mg/dL (2.5-4.9); Sodium, Blood 139 mmol/L (136-145); Total Protein, Blood 7.1 g/dL (6.4-8.2)
[2020-12-17 03:56] LABS: BAND PERCENT MAN 20 % (0-8); BASOPHILS PERCENT MAN 0 % (0-2); EOSINOPHILS PERCENT MAN 0 % (0-6); LYMPHOCYTES ABSOLUTE MAN 0.34 K/mm3 (0.84-5.20); LYMPHOCYTES PERCENT MAN 6 % (21-46); METAMYELOCYTE ABSOLUTE MAN 0.05 K/mm3 (0.00-0.00); METAMYELOCYTE PERCENT MAN 1 % (0-0); MONOCYTES ABSOLUTE MAN 0.22 K/mm3 (0.16-1.47); MONOCYTES PERCENT MAN 4 % (4-13); SEG NEUTROPHILS PERCENT MAN 69 % (41-73); TOTAL CELLS COUNTED 100
--- NOTE | 2020-12-17 05:15 | NUR ---
CALLED DR. LEWIS. NOTIFIED HIM PATIENT'S PHOSPHORUS 2.1, POTASSIUM 5.0. PATIENT PULLED OUT PICC LINE EARLIER THIS SHIFT AND WAS AGITATED, NOW IN SOFT BILATERAL WRIST RESTRAINTS. SHE IS ONLY ORIENTED TO HER FIRST NAME, HAS GARBLED SPEECH. SHE IS SLEEPING AT THIS TIME. ORDERS RECEIVED FOR ABG NOW, STOP LR, AND FOR SODIUM PHOSPHORUS 20 MM IV PIGGYBACK X1 NOW. ORDERS READ BACK AND VERIFIED.
[2020-12-17 05:38] LABS: PO2 Arterial 83.7 mmHg (80-100)
[2020-12-17 05:39] LABS: pH Blood Arterial 7.26 (7.35-7.45)
[2020-12-17 05:41] LABS: PCO2 Arterial > 105 mmHg (35-45)
--- NOTE | 2020-12-17 06:45 | NUR ---
ABG SHOWED CRITICAL PH 7.26 AND CRITICAL PCO2 >105. RT IN ROOM TO PLACE BIPAP. PLACED PATIENT ON BIPAP WITH SETTINGS 16/8 FIO2 75% WITH BACKUP RATE OF 18. CALLED DR. LEWIS AND NOTIFIED HIM OF CRITICAL VALUES. PATIENT IS STILL AROUSABLE. READ HIM BIPAP SETTINGS. HE STATED THAT HE THOUGHT PATIENT'S HOME BIPAP SETTINGS WERE 18/14, NOTIFY RESPIRATORY THERAPY AND HAVE THEM START TO ADJUST SETTINGS. DR. LEWIS WOULD BE IN TO SEE HER. NOTIFIED RESPIRATORY THERAPY.
--- NOTE | 2020-12-17 06:54 | NUR ---
SHIFT SUMMARY: PATIENT ORIENTED TO FIRST NAME AND SOMETIMES BIRTHDAY ONLY. SHE IS ABLE TO FOLLOW SOME DIRECTIONS. SHE HAS DENIED PAIN THROUGHOUT THE SHIFT. SHE SLEPT UNTIL APPROX 0030 AND THEN SHE PULLED OUT HER PICC LINE AND WAS PULLING ON HER CANNULA. BILATERAL SOFT WRIST RESTRAINTS PLACED. SHE WAS ON HEATED HIGH FLOW NASAL CANNULA AT 40L WITH 75% FOR MOST OF THE SHIFT UNTIL WE RECEIVED A CRITICAL ABG AND PLACED HER ON BIPAP. SEE PREVIOUS NOTES. MONITOR HAS SHOWN MOSTLY SINUS TACH IN THE 100'S-LOW 130'S. SHE IS STILL AROUSABLE. NPO, ORAL CARE PROVIDED. TURNED Q2H. ALLEVYN DRESSING PLACED TO COCCYX. REPORT GIVEN TO ONCOMING RN.
--- NOTE | 2020-12-17 07:30 | NUR ---
Received report from Noc Rn. Patient resting and restless in bed. She is on BIPAP 05/16 and sats >90%. She awakens to verbal stimuli and falls right back to sleep. Whe she falls asleep her volumes drop to 100's and have to stimulate her again. She has 22 ga IV to RH after pulling picc line out last night. She has 16Fr Temp graves in Place draining to gravity yellow urine. She oriented to self and place.
--- NOTE | 2020-12-17 09:30 | NUR ---
Rt has been in room try to put patient at home BIPAP settings without success. Patient when sleeping unavble to keep good volumes. Current settings 14/12 and 70% FiO2 with sats >90%. Notified Dr Santos. VSS except HR 100-130 ST. Patient continues to figit extremities all over bed.
--- NOTE | 2020-12-17 11:30 | NUR ---
We have been having hard time with seal on mask, so placed on 7L O2 via NC and started to come hair out to put so head gear fits better, the back of head is matted. She is tolerating well . HR 100-130, all other VS WNL's. BIPAP remains at 14/12 and sats 88-94%. She continues to awaken to stimuli and in and out of sleep.
--- NOTE | 2020-12-17 14:02 | NUR ---
Took almost two hours and hair done and mask is fitting better and she is not as restless. No changes to VS and or BIPAP settings. Dr Santos by briefly to check on patient and lowered FiO2 to 55% and stated sats 88-92 ok.
--- NOTE | 2020-12-17 17:00 | NUR ---
Patient has been rest mostly since last shift. I gave break with NC at 7L O2 and gave fluids and jello which she tolerated well. BIPAP setting 16/10 FiO2 50%. She has some intermitent agitation. HR 117 and all other VS WNL's. Intermitent Abx.
--- NOTE | 2020-12-17 18:54 | NUR ---
No significant changes with . Path and linen change done. BIPAP settings 16/10 50% FiO2 and sats >95%. No fluids running, only intermitent Abx. Awakens and assist with care.
--- NOTE | 2020-12-17 19:58 | NUR ---
CARE ASSUMPTION PT IS AWAKE AND RESPONDING TO CONVERSATION AXO X3-4. PT IS LETHARGIC IN BETWEEN CONVERSATION. PT REPORTED NAUSEA SO BIPAP TAKEN OFF AND 7L NC PLACED SO IV NAUSEA MEDICATION ORDER COULD BE OBTAINED. PT DENYING ANY PAIN AT THIS TIME. O2 SATS >88% ON NASAL CANNULA. HR TACHY 110'S. BP SOFT BUT STABLE 100/65. RESTRAINTS OFF AND PT ACTING APPROPRIATE AT THIS TIME.
--- NOTE | 2020-12-18 06:19 | NUR ---
PT IS AXO X3 THIS SHIFT. PT HAS BEEN CALM AND COOPERATIVE THIS SHIFT BUT HAS HAD MOMENTS OF ANXIETY AND PANIC ABOUT THE BIPAP MASK BUT THEN FALLS BACK ASLEEP. PT GIVEN BREAK FROM BIPAP WHEN SHE HAD C/O NAUSEA AND MAINTAINED O2 SATS >88% ON 4L VIA NC AND GIVEN IV NAUSEA MEDICATION. PT HAS HAD A LOW GRADE FEVER W PEAK TEMP AT 100.8 SO ORDER FOR TYLENOL AND TORADOL RECIEVED WHICH BROUGHT TEMP DOWN TO 99.8. BIPAP SETTINGS HAVE REMAINED 16/10 W FIO2 NOW AT 40%. TELE HAS SHOWN SR/ST 90-120. BP'S REMAIN SOFT AROUND 100/60. LOW URINE OUTPUT W 350ML OUTPUT FROM MEDINA THIS SHIFT OF DARK TRAE URINE. ORAL CARE AND REPOSITIONING THROUGHOUT THE SHIFT. WILL REPORT TO ONCOMING RN.
[2020-12-18 07:53] LABS: BASOPHILS ABSOLUTE AUTO 0.01 K/mm3 (0.00-0.23); BASOPHILS PERCENT AUTO 0 % (0-2); EOSINOPHILS PERCENT AUTO 0 % (0-6); Hemoglobin 11.6 g/dL (11.5-16.0); IMMATURE GRAN ABSOLUTE AUTO 0.02 K/mm3 (0.00-0.10); IMMATURE GRAN PERCENT AUTO 0 % (0-1); LYMPHOCYTES ABSOLUTE AUTO 0.59 K/mm3 (0.84-5.20); LYMPHOCYTES PERCENT AUTO 10 % (21-46); MONOCYTES ABSOLUTE AUTO 0.09 K/mm3 (0.16-1.47); MONOCYTES PERCENT AUTO 2 % (4-13); Mean Corpuscular Volume 97 fL (80-100); Mean Platelet Volume 11.4 fL (9.1-12.4); NEUTROPHILS PERCENT AUTO 88 % (41-73); Platelet Count 110 K/mm3 (150-400); RDW Coefficient Variation 12.8 % (11.7-14.2); RDW Standard Deviation 45.3 fL (35.1-46.3); Red Blood Cell Count 4.14 M/mm3 (3.80-5.20); White Blood Cell Count 6.01 K/mm3 (4.00-11.30)
[2020-12-18 08:10] LABS: BASOPHILS PERCENT MAN 0 % (0-2); EOSINOPHILS PERCENT MAN 0 % (0-6); MONOCYTES PERCENT MAN 0 % (4-13); NEUTROPHILS ABSOLUTE MAN 6.01 K/mm3 (1.96-9.15); SEG NEUTROPHILS PERCENT MAN 100 % (41-73); TOTAL CELLS COUNTED 1
[2020-12-18 08:13] LABS: Alanine Aminotransfer (ALT/SGP 12 U/L (12-78); Albumin, Blood 3.1 g/dL (3.4-5.0); Albumin/Globulin Ratio 0.9 (0.8-1.8); Alk Phos 50 U/L (50-136); Aspartate Aminotrans (AST/SGOT 7 U/L (12-37); Bilirubin, Total 0.5 mg/dL (0.1-1.0); Blood Urea Nitrogen 30 mg/dL (8-24); Bun/Creatinine Ratio 72.5 (12.0-20.0); Calcium, Blood 8.9 mg/dL (8.5-10.1); Chloride, Blood 92 mmol/L (98-108); Creatinine, Blood 0.41 mg/dL (0.40-1.00); Globulin, Blood 3.3 g/dL (2.2-4.0); Glomerular Filtration Rate >60 (60-); Glucose, Blood 114 mg/dL (70-99); Potassium, Blood 4.1 mmol/L (3.5-5.5); Sodium, Blood 139 mmol/L (136-145); Total Protein, Blood 6.4 g/dL (6.4-8.2)
[2020-12-18 08:20] LABS: Albumin, Blood 3.1 g/dL (3.4-5.0); Blood Urea Nitrogen 31 mg/dL (8-24); Bun/Creatinine Ratio 76.9 (12.0-20.0); Calcium, Blood 8.9 mg/dL (8.5-10.1); Chloride, Blood 92 mmol/L (98-108); Glomerular Filtration Rate >60 (60-); Glucose, Blood 114 mg/dL (70-99); Phosphorus, Blood 1.8 mg/dL (2.5-4.9); Potassium, Blood 4.1 mmol/L (3.5-5.5); Sodium, Blood 140 mmol/L (136-145)
[2020-12-18 08:40] LABS: Anion Gap Unable to Calculate mmol/L (6-16)
[2020-12-18 08:41] LABS: Anion Gap Unable to Calculate mmol/L (6-16); CO2, Blood >45 mmol/L (21-32)
--- NOTE | 2020-12-18 09:36 | NUR ---
ASSUMED CARE OF PT THIS AM AFTER RECEIVING REPORT FROM NOC SHIFT RN, JONATHAN. PT CONTINUES A&OX3, ANSWERING QUESTIONS APPROPRIATELY, ASKS WHAT TIME IT IS. PT WITH APPROX 30 MIN BREAK FROM BIPAP, PLACED ON HOME O2 SETTINGS OF 5L/MIN VIA NC, TOLERATED WELL WITH O2 SATS >92%, ORAL CARE AND WATER PROVIDED. PT REQUESTS TO BE PLACED BACK ON BIPAP FOR SLEEP. PT REPOSITIONED FOR COMFORT. CALL LIGHT WITHIN REACH.
[2020-12-18 10:22] LABS: PO2 Arterial 55.6 mmHg (80-100); pH Blood Arterial 7.42 (7.35-7.45)
[2020-12-18 10:24] LABS: PCO2 Arterial 80.4 mmHg (35-45)
--- NOTE | 2020-12-18 14:05 | NUR ---
UPDATE: PT RECEIVES NEW ROOM ASSIGNMENT IN PCU. REPORT HAS BEEN GIVEN TO SHAVONNE MORSE.
--- NOTE | 2020-12-18 17:48 | NUR ---
Spiritual care note: Per admit trigger, prayer and advanced directive provided for pt. She did not appear interested in either. I will remain available.
--- NOTE | 2020-12-18 17:48 | NUR ---
PT TRANSFER FROM ICU: ALERT AND ORIENTED X3-4. ON 5 L NASAL CANNULA WITH BIPAP ON STANDY AT BEDSIDE. PT ENCOURAGED TO WEAR BIPAP WHEN SLEEPING AND AT NIGHT. ON NASAL CANNULA WHILE EATING DINNER. LUNGS SOUNDING CLEAR AND DIM IN BASES. TELE SHOWING SINUS TACH WITH HR 100-110'S. DENIES CHEST PAIN/PRESSURE. VITAL SIGNS STABLE. BOWEL TONES PRESENT. PERIPHERAL PULSES PALPABLE. DENIES NEEDS AT THIS TIME. ORIENTED TO UNIT AND CALL LIGHT. WILL CONTINUE TO MONITOR.
--- NOTE | 2020-12-18 19:31 | NUR ---
SHIFT SUMMARY: PT PLACED ON BIPAP. NO ACUTE CHANGES. ABLE TO EAT DINNER. SLEEPING ON AND OFF. DENIES PAIN AND NEEDS. SEE PREVIOUS NOTE FOR UPDATES. CALL LIGHT IN REACH. REPORTED OFF TO ONCOMING NURSE.
[2020-12-19 04:34] LABS: Base Excess Venous 25.2 mmol/L; Bicarbonate Venous 46.4 mmol/L (24.0-30.0); PCO2 Venous 63.5 mmHg (38-42); PO2 Venous 58.7 mmHg (38-42); pH Blood Venous 7.49 (7.34-7.37)
[2020-12-19 04:42] LABS: BASOPHILS PERCENT AUTO 0 % (0-2); EOSINOPHILS PERCENT AUTO 0 % (0-6); Hematocrit 36.5 % (33.0-51.0); IMMATURE GRAN ABSOLUTE AUTO 0.02 K/mm3 (0.00-0.10); IMMATURE GRAN PERCENT AUTO 0 % (0-1); LYMPHOCYTES ABSOLUTE AUTO 0.68 K/mm3 (0.84-5.20); LYMPHOCYTES PERCENT AUTO 9 % (21-46); MONOCYTES ABSOLUTE AUTO 0.22 K/mm3 (0.16-1.47); MONOCYTES PERCENT AUTO 3 % (4-13); Mean Corpuscular HGB 28.4 pg (26.0-34.0); Mean Corpuscular HGB Conc 30.1 g/dL (31.5-36.5); Mean Corpuscular Volume 94 fL (80-100); Mean Platelet Volume 11.1 fL (9.1-12.4); NEUTROPHILS ABSOLUTE AUTO 6.29 K/mm3 (1.96-9.15); NEUTROPHILS PERCENT AUTO 87 % (41-73); Platelet Count 113 K/mm3 (150-400); RDW Coefficient Variation 12.9 % (11.7-14.2); RDW Standard Deviation 44.7 fL (35.1-46.3); Red Blood Cell Count 3.87 M/mm3 (3.80-5.20); White Blood Cell Count 7.21 K/mm3 (4.00-11.30)
--- NOTE | 2020-12-19 07:29 | NUR ---
SHIFT SUMMARY PT AOX3. SINUS-SINUS TACH 80'S-110'S. USED BIPAP WHILE SLEEPING, 5 L VIA NC WHILE AWAKE/EATING. MEDINA PATENT AND DRAINING. MEPILEX CHANGED ON THIS SHIFT. PT USED SCDS WHILE IN BED. COOPERATIVE, AWOKEN EASILY FROM SLEEP. SATS >93% ON BIPAP AND NC. SALINE LOCKED.
[2020-12-19] MEDS ORDERED: Acetaminophen650 M1 PO (14:52)
[2020-12-19] MEDS ORDERED: IPRAT-ALBUT 0.5-3 ML INH (14:54)
[2020-12-19] MEDS ORDERED: CEFD300 PO (14:55)
[2020-12-19] MEDS ORDERED: Prednisone20 MG PO (14:55)
[2020-12-19] MEDS ORDERED: STIOLTO RESPIMAT4 G1 INH (15:05)
--- NOTE | 2020-12-19 16:01 | NUR ---
UPDATE PT ALERT AND ORIENTED. VS STABLE. O2 SATS HAVE REMAINED ABOVE 90% ON 5L NC. PT DENIES ANY PAIN. MEDINA CATHETER REMOVED. PT UP TO [facility] TO VOID AFTER REMOVAL OF CATHETER WITH NO DIFFICULTY. PT ABLE TO AMBULATE AROUND ROOM WITH WALKER. ORDERS FOR DISCHARGE PROVIDED. PT EDUCATED ON NEW MEDICTIONS. ALL QUESTIONS ANSWERED. PT AWAITING PORTABLE O2 TAKE FROM [facility] AND THEN PT WILL BE TAKEN OUT BY .
== END 2020-12-19 16:50 | disposition home or self-care (01) | DRG 917 ==
LOC: ER 09:44 → ICUE 12:03 → ERHOLD 12:03 → ICUE 13:27 → PCU 12-18 15:12
PROVIDERS: Emergency Medicine; Family Medicine; Internal Medicine Critical Care Medicine; Student in an Organized Health Care Education/Training Program; ADMIT Hospitalist
PROC: 5A09457 Assistance with Respiratory Ventilation, 24-96 Consecutive Hours, Continuous Positive Airway Pressure (ICD-10-PCS; principal; 2020-12-16)
PROC: 06HY33Z Insertion of Infusion Device into Lower Vein, Percutaneous Approach (ICD-10-PCS; 2020-12-16)
DX: T43.621A Poisoning by amphetamines, accidental (unintentional), initial encounter (principal); J96.21 Acute and chronic respiratory failure with hypoxia; R65.11 Systemic inflammatory response syndrome (SIRS) of non-infectious origin with acute organ dysfunction; G92 Toxic encephalopathy; J96.22 Acute and chronic respiratory failure with hypercapnia; E87.4 Mixed disorder of acid-base balance; J43.9 Emphysema, unspecified; Z20.822 Contact with and (suspected) exposure to COVID-19; Z88.5 Allergy status to narcotic agent; Z88.0 Allergy status to penicillin; Z88.8 Allergy status to other drugs, medicaments and biological substances; Z88.7 Allergy status to serum and vaccine; Z90.710 Acquired absence of both cervix and uterus; Z90.722 Acquired absence of ovaries, bilateral; Z90.49 Acquired absence of other specified parts of digestive tract; Z87.891 Personal history of nicotine dependence; Z79.899 Other long term (current) drug therapy; F31.9 Bipolar disorder, unspecified; G43.909 Migraine, unspecified, not intractable, without status migrainosus
CPT/HCPCS: 36415; 36569; 36600; 51702; 71045; 80047; 80053; 80069; 81001; 82803; 83605; 83735; 83880; 84100; 84145; 84484; 85014; 85025; 85379; 85651; 86141; 87040; 93005; 93010; 94640; 94644; 94645; 94660; 94762; 96374-59; 96375-59; 97110; 97162; 99285-25; A9270; C1751; J0456; J0696; J1650; J1885; J2765; J2920; J2930; J7030; J7050; J7060; J7120; U0004

== ENCOUNTER 2021-06-17 21:02 | Inpatient (IN) | payer OTHER ==
[~2021-06-17] VITALS: Ht 165.1 cm; Wt 52.2 kg
[~2021-06-17 21:02] MED LIST changes: -ALBU2.5V5 INH; -ALBU90OI INH; +Acetaminophen650 M1 PO; +CEFD300 PO; -Flonase 0.05% N16 GM; +IPRAT-ALBUT 0.5-3 ML INH; -MONT10T PO
[2021-06-17 21:12] LABS: PCO2 Venous 89.3 mmHg (38-42); pH Blood Venous 7.31 (7.34-7.37)
[2021-06-17 21:13] LABS: Base Excess Venous 18.2 mmol/L; PO2 Venous 92.2 mmHg (38-42)
[2021-06-17 21:18] LABS: Hematocrit 41.5 % (33.0-51.0); Hemoglobin 12.3 g/dL (11.5-16.0); Mean Corpuscular HGB 28.3 pg (26.0-34.0); Mean Corpuscular HGB Conc 29.6 g/dL (31.5-36.5); Mean Corpuscular Volume 96 fL (80-100); Mean Platelet Volume 11.5 fL (9.1-12.4); Platelet Count 83 K/mm3 (150-400); RDW Coefficient Variation 12.8 % (11.7-14.2); RDW Standard Deviation 45.6 fL (35.1-46.3); Red Blood Cell Count 4.34 M/mm3 (3.80-5.20); White Blood Cell Count 5.08 K/mm3 (4.00-11.30)
[2021-06-17 21:27] LABS: Source, Urine Catheter
[2021-06-17 21:33] LABS: Bilirubin, Urine Neg (Neg); Blood, Urine 3+ (Neg); Glucose Qualitative, Urine Neg (Neg); Ketones, Urine Neg (Neg); Leukocyte Esterase, Urine Neg (Neg); Nitrite, Urine Neg (Neg); Protein, Urine 1+ (Neg); Urobilinogen, Urine NORM (Normal)
[2021-06-17 21:38] LABS: Alanine Aminotransfer (ALT/SGP 31 U/L (12-78); Albumin, Blood 3.3 g/dL (3.4-5.0); Albumin/Globulin Ratio 0.9 (0.8-1.8); Alk Phos 64 U/L (50-136); Anion Gap 1 mmol/L (6-16); Aspartate Aminotrans (AST/SGOT 28 U/L (12-37); Bilirubin, Total 0.8 mg/dL (0.1-1.0); Blood Urea Nitrogen 19 mg/dL (8-24); Bun/Creatinine Ratio 40.5 (12.0-20.0); CO2, Blood 41 mmol/L (21-32); Calcium, Blood 8.5 mg/dL (8.5-10.1); Chloride, Blood 95 mmol/L (98-108); Creatinine, Blood 0.47 mg/dL (0.40-1.00); Globulin, Blood 3.6 g/dL (2.2-4.0); Glomerular Filtration Rate >60 (60-); Glucose, Blood 175 mg/dL (70-99); Potassium, Blood 4.9 mmol/L (3.5-5.5); Sodium, Blood 137 mmol/L (136-145); Total Protein, Blood 6.9 g/dL (6.4-8.2); Troponin I <0.015 ng/mL (0.000-0.040)
[2021-06-17 21:39] LABS: Amorphous Mod (0-Heavy); Appearance, Urine Hazy (Clear); Bacteria Rare /hpf; Color, Urine Yellow (P-Yellow); Squamous Epithelial Cells Not Seen /hpf (Few); White Blood Cells, Urine Rare /hpf (0-5)
[2021-06-17 21:43] LABS: BAND PERCENT MAN 28 % (0-8); BASOPHILS PERCENT MAN 0 % (0-2); EOSINOPHILS ABSOLUTE MAN 0.15 K/mm3 (0.00-0.68); EOSINOPHILS PERCENT MAN 3 % (0-6); LYMPHOCYTES PERCENT MAN 4 % (21-46); MONOCYTES ABSOLUTE MAN 0.35 K/mm3 (0.16-1.47); MONOCYTES PERCENT MAN 7 % (4-13); NEUTROPHILS ABSOLUTE MAN 4.36 K/mm3 (1.96-9.15); SEG NEUTROPHILS PERCENT MAN 58 % (41-73); TOTAL CELLS COUNTED 100
[2021-06-17 21:47] LABS: U Amphetamine Screen DETECTED; U Barbituate Screen Not Detected; U Benzodiazapine Screen Not Detected; U Buprenorphine Screen Not Detected; U Cannabinoids Screen DETECTED; U Cocaine Screen Not Detected; U Methadone Screen Not Detected; U Methamphetamine Screen DETECTED; U Opiates Screen Not Detected; U Oxycodone Screen Not Detected; U Phencyclidine Screen Not Detected; U Propoxyphene Screen Not Detected
[2021-06-17 21:54] LABS: Influenza B, PCR NEGATIVE (NEGATIVE); Resp Syncytial Virus, PCR NEGATIVE (NEGATIVE); SARS-Cov-2 (COVID-19) PCR, MMC NEGATIVE (NEGATIVE)
[2021-06-17 22:18] LABS: Influenza A, PCR POSITIVE (NEGATIVE)
[2021-06-18 03:33] LABS: Hematocrit 38.1 % (33.0-51.0); Hemoglobin 11.1 g/dL (11.5-16.0); Mean Corpuscular HGB 28.8 pg (26.0-34.0); Mean Corpuscular HGB Conc 29.1 g/dL (31.5-36.5); Mean Corpuscular Volume 99 fL (80-100); Mean Platelet Volume 11.4 fL (9.1-12.4); Platelet Count 78 K/mm3 (150-400); RDW Coefficient Variation 13.1 % (11.7-14.2); RDW Standard Deviation 47.1 fL (35.1-46.3); Red Blood Cell Count 3.86 M/mm3 (3.80-5.20); White Blood Cell Count 5.38 K/mm3 (4.00-11.30)
[2021-06-18 03:49] LABS: Alanine Aminotransfer (ALT/SGP 29 U/L (12-78); Albumin, Blood 2.7 g/dL (3.4-5.0); Alk Phos 51 U/L (50-136); Anion Gap 2 mmol/L (6-16); Aspartate Aminotrans (AST/SGOT 29 U/L (12-37); Bilirubin, Total 0.6 mg/dL (0.1-1.0); Blood Urea Nitrogen 19 mg/dL (8-24); Bun/Creatinine Ratio 41.3 (12.0-20.0); CO2, Blood 38 mmol/L (21-32); Calcium, Blood 7.8 mg/dL (8.5-10.1); Chloride, Blood 103 mmol/L (98-108); Creatinine, Blood 0.46 mg/dL (0.40-1.00); Globulin, Blood 2.8 g/dL (2.2-4.0); Glomerular Filtration Rate >60 (60-); Glucose, Blood 96 mg/dL (70-99); Potassium, Blood 4.3 mmol/L (3.5-5.5); Sodium, Blood 143 mmol/L (136-145); Total Protein, Blood 5.5 g/dL (6.4-8.2)
[2021-06-18 04:07] LABS: PCO2 Arterial 98.8 mmHg (35-45); PO2 Arterial 85.6 mmHg (80-100); pH Blood Arterial 7.18 (7.35-7.45)
[2021-06-18 04:41] LABS: BAND PERCENT MAN 28 % (0-8); BASOPHILS PERCENT MAN 0 % (0-2); EOSINOPHILS ABSOLUTE MAN 0.05 K/mm3 (0.00-0.68); EOSINOPHILS PERCENT MAN 1 % (0-6); LYMPHOCYTES ABSOLUTE MAN 0.16 K/mm3 (0.84-5.20); LYMPHOCYTES PERCENT MAN 3 % (21-46); MONOCYTES ABSOLUTE MAN 0.43 K/mm3 (0.16-1.47); MONOCYTES PERCENT MAN 8 % (4-13); NEUTROPHILS ABSOLUTE MAN 4.73 K/mm3 (1.96-9.15); SEG NEUTROPHILS PERCENT MAN 60 % (41-73); TOTAL CELLS COUNTED 100
--- NOTE | 2021-06-18 08:00 | NUR ---
ASSUMED CARE: REPORT RECEIVED FROM EDMUNDO Carlton RN. ASSUMED CARE OF THIS PT AT APPROX 0700. ON ASSESSMENT, THE PT IS RESTING QUIETLY & AWAKENS EASILY TO VERBAL STIMULUS. SHE IS ORIENTED TO SELF, SURROUNDINGS & FOLLOWING DIRECTIONS AT THAT TIME. SHE IS ABLE TO APPROPRIATELY ASK FOR A SIP OF WATER. LS DIM T/O, COARSENESS NOTED IN RLL. BIPAP IN PLACE W/ SETTINGS: 24/10, 55% FIO2 & RATE 26. O2 SATS > 95% ON AVG, DESATS NOTED TO 85% AT TIMES W/ PROLONGED RECOVERY PERIOD. MONITOR SHOWS ST W/ HR 100-110s, BP STABLE. NPO EXCEPT FOR SIPS R/T BIPAP USE, TOLERATES SIPS OF WATER WELL. TEMP MEDINA PATENT/ DRAINING CLEAR YELLOW URINE. SKIN CONDITION OVERALL INTACT, DIRTY. PT REPOSITIONS SELF APPROX Q2H W/ MINIMAL ASSISTANCE. WILL CONTINUE TO MONITOR & UPDATE NEEDED.
--- NOTE | 2021-06-18 08:29 | NUR ---
DR SCOTT: PROVIDER AT BEDSIDE THIS AM TO EVAL PT. LOW PLT COUNT DISCUSSED R/T LOVENOX ORDER. LOVENOX D/C'd & SCD's ORDERED. ORDER ALSO PLACED FOR PO ACETAMINOPHEN SINCE PT's MENTATION HAS IMPROVED ENOUGH TO SAFELY TAKE PO MEDICATIONS. IF REPEAT ABG THIS AM DOES NOT SHOW A NORMAL pH AFTER BIPAP SETTINGS ADJUSTED R/T PRIOR ABG, HE WOULD LIKE THE [facility] ANTHROPOLOGIST SERVICE TO BE CONSULTED FOR THIS PT. NO OTHER CHANGES AT THIS TIME.
[2021-06-18 09:02] LABS: PO2 Arterial 112 mmHg (80-100)
[2021-06-18 09:03] LABS: PCO2 Arterial 88.9 mmHg (35-45); pH Blood Arterial 7.21 (7.35-7.45)
--- NOTE | 2021-06-18 09:20 | NUR ---
DR RITTER: PROVIDER AT BEDSIDE TO EVAL PT THIS AM. HE HAS ADJUSTED BIPAP SETTINGS: 20/5, 30% FIO2 & RATE 26. NO OTHER CHANGES AT THIS TIME.
[2021-06-18] MEDS ORDERED: MONT10T PO ×2 (10:16)
[2021-06-18] MEDS ORDERED: STIOLTO RESPIMAT4 G1 INH ×2 (10:17)
[2021-06-18] MEDS ORDERED: ALBU90OI INH ×2 (10:18)
[2021-06-18] MEDS ORDERED: ALBU2.5V5 NEB ×2 (10:18)
[2021-06-18] MEDS ORDERED: PROP60 PO ×2 (10:19)
[2021-06-18] MEDS ORDERED: Flonase 0.05% N16 GM ×2 (10:20)
--- NOTE | 2021-06-18 17:03 | NUR ---
SHIFT SUMMARY: NO ACUTE CHANGES SINCE PRIOR UPDATES. PT REMAINS A&O TO SELF, FOLLOWING DIRECTIONS & SURROUNDINGS WHEN AWAKE, IS OVERALL RESTING QUIETLY. LS DIM T/O, PT ON BIPAP 18/8, 55% FIO2, RATE 26. O2 SATS > 92% ON AVG. MONITOR SHOWS ST W/ HR 100-110s, BP STABLE. NPO R/T BIPAP USE. TEMP MEDINA PATENT/ DRAINING CLEAR YELLOW URINE. SKIN CONDITION OVERALL INTACT, Q2H REPOSITIONING TO MAINTAIN SKIN INTEGRITY. WILL CONTINUE TO MONITOR & REPORT OFF TO ONCOMING RN.
[2021-06-19 03:32] LABS: Hemoglobin 10.6 g/dL (11.5-16.0); Mean Corpuscular HGB 28.7 pg (26.0-34.0); Mean Corpuscular HGB Conc 29.4 g/dL (31.5-36.5); Mean Corpuscular Volume 98 fL (80-100); Mean Platelet Volume 12.6 fL (9.1-12.4); Platelet Count 69 K/mm3 (150-400); RDW Standard Deviation 46.5 fL (35.1-46.3); Red Blood Cell Count 3.69 M/mm3 (3.80-5.20); White Blood Cell Count 2.58 K/mm3 (4.00-11.30)
[2021-06-19 03:47] LABS: Magnesium, Blood 2.1 mg/dL (1.6-2.4)
[2021-06-19 04:01] LABS: Anion Gap Unable to Calculate mmol/L (6-16); Blood Urea Nitrogen 18 mg/dL (8-24); Bun/Creatinine Ratio 48.1 (12.0-20.0); CO2, Blood 40 mmol/L (21-32); Chloride, Blood 100 mmol/L (98-108); Creatinine, Blood 0.37 mg/dL (0.40-1.00); Glomerular Filtration Rate >60 (60-); Glucose, Blood 101 mg/dL (70-99); Phosphorus, Blood 2.8 mg/dL (2.5-4.9); Potassium, Blood 5.1 mmol/L (3.5-5.5); Sodium, Blood 139 mmol/L (136-145); Triglycerides 77 mg/dL (30-160)
[2021-06-19 04:06] LABS: BAND PERCENT MAN 30 % (0-8); BASOPHILS PERCENT MAN 0 % (0-2); EOSINOPHILS PERCENT MAN 0 % (0-6); LYMPHOCYTES ABSOLUTE MAN 0.18 K/mm3 (0.84-5.20); LYMPHOCYTES PERCENT MAN 7 % (21-46); MONOCYTES ABSOLUTE MAN 0.28 K/mm3 (0.16-1.47); MONOCYTES PERCENT MAN 11 % (4-13); MYELOCYTE ABSOLUTE MAN 0.05 K/mm3 (0.00-0.00); MYELOCYTE PERCENT MAN 2 % (0-0); NEUTROPHILS ABSOLUTE MAN 2.06 K/mm3 (1.96-9.15); SEG NEUTROPHILS PERCENT MAN 50 % (41-73); TOTAL CELLS COUNTED 100
--- NOTE | 2021-06-19 09:00 | NUR ---
ASSUMED CARE: REPORT RECEIVED FROM EDMUNDO Carlton RN. ASSUMED CARE OF THIS PT AT APPROX 0700. ON ASSESSMENT, THE PT IS RESTING QUIETLY & AWAKENS EASILY TO VERBAL STIMULUS. SHE IS A&O TO ALL, BUT FORGETFUL AT TIMES & UPON WAKING. LS DIM T/O, BIPAP IN USE W/ SETTINGS: 20/8, 55% FIO2 & RATE 26. O2 SATS > 92% ON AVG. MONITOR SHOWS ST W/ HR 100-110s, BP STABLE. NPO R/T BIPAP USE, EXCEPT FOR SMALL SIPS OF WATER WHICH SHE TOLERATES WELL. CLINIMIX INFUSING PER DIETARY ORDERS. TEMP MEDINA PATENT/ DRAINING. SKIN CONDITION OVERALL INTACT, Q2H REPOSITIONING TO MAINTAIN SKIN INTEGRITY. WILL CONTINUE TO MONITOR & UPDATE NEEDED.
--- NOTE | 2021-06-19 10:48 | NUR ---
DR OLIVER: PROVIDER AT BEDSIDE TO EVAL PT THIS AM AFTER IT IS NOTED THAT RESPIRATORY EFFORT HAS INCREASED. THIS RN HAS ALSO NOTIFIED KACEY Mendoza RN, WHO HAS ADJUSTED BIPAP SETINGS. DR OLIVER HAS CONVERSED W/ THE PT & INCREASED EPAP PRESSURE ON BIPAP TO 10. SETTINGS NOW 20/10, 55% FIO2, RATE 26. PT's LOW PLT COUNT, DECREASED FROM 78 YESTERDAY TO 69 TODAY HAS ALSO BEEN DISCUSSED. THIS RN HELD AM DOSE OF LOVENOX, DR OLIVER AGREES W/ THIS PLAN & WILL REVIEW ORDERS/ LABS. NO OTHER CHANGES AT THIS TIME.
--- NOTE | 2021-06-19 18:14 | NUR ---
SHIFT SUMMARY: NO ACUTE CHANGES SINCE PRIOR UPDATE. PT REMAINS A&O BUT FORGETFUL AT TIMES REQUIRING SOME REMINDERS. LS DIM T/O, PT CURRENTLY ON AIRVO W/ SETTINGS: 50 L/MIN & 50% FIO2, O2 SATS > 92% ON AVG. PT OCCASIONALLY HAS MOIST COUGH NOTED W/ NO SPUTUM VISUALIZED. MONITOR SHOWS ST W/ HR 100-110s, BP STABLE. NPO EXCEPT FOR SIPS OF WATER, TOLERATING WELL. TEMP MEDINA PATENT/ DRAINING CLEAR YELLOW URINE. SKIN CONDITION OVERALL FRAGILE, INTACT. Q2H REPOSITIONING TO MAINTAIN SKIN INTEGRITY. WILL CONTINUE TO MONITOR & REPORT OFF TO ONCOMING RN.
[2021-06-20 02:46] LABS: Hematocrit 39.3 % (33.0-51.0); Hemoglobin 11.3 g/dL (11.5-16.0); Mean Corpuscular HGB 28.5 pg (26.0-34.0); Mean Corpuscular HGB Conc 28.8 g/dL (31.5-36.5); Mean Corpuscular Volume 99 fL (80-100); Mean Platelet Volume 11.9 fL (9.1-12.4); Platelet Count 63 K/mm3 (150-400); RDW Coefficient Variation 12.8 % (11.7-14.2); RDW Standard Deviation 46.5 fL (35.1-46.3); Red Blood Cell Count 3.97 M/mm3 (3.80-5.20); White Blood Cell Count 2.72 K/mm3 (4.00-11.30)
[2021-06-20 03:03] LABS: Blood Urea Nitrogen 12 mg/dL (8-24); Bun/Creatinine Ratio 33.3 (12.0-20.0); Calcium, Blood 8.5 mg/dL (8.5-10.1); Chloride, Blood 95 mmol/L (98-108); Creatinine, Blood 0.36 mg/dL (0.40-1.00); Glomerular Filtration Rate >60 (60-); Glucose, Blood 107 mg/dL (70-99); Magnesium, Blood 1.9 mg/dL (1.6-2.4); Phosphorus, Blood 2.7 mg/dL (2.5-4.9); Potassium, Blood 4.3 mmol/L (3.5-5.5); Sodium, Blood 140 mmol/L (136-145)
[2021-06-20 03:14] LABS: Anion Gap Unable to Calculate mmol/L (6-16)
[2021-06-20 03:15] LABS: CO2, Blood >45 mmol/L (21-32)
[2021-06-20 03:21] LABS: BAND PERCENT MAN 41 % (0-8); BASOPHILS PERCENT MAN 0 % (0-2); EOSINOPHILS PERCENT MAN 0 % (0-6); LYMPHOCYTES ABSOLUTE MAN 0.27 K/mm3 (0.84-5.20); LYMPHOCYTES PERCENT MAN 10 % (21-46); MONOCYTES ABSOLUTE MAN 0.21 K/mm3 (0.16-1.47); MONOCYTES PERCENT MAN 8 % (4-13); NEUTROPHILS ABSOLUTE MAN 2.23 K/mm3 (1.96-9.15); SEG NEUTROPHILS PERCENT MAN 41 % (41-73); TOTAL CELLS COUNTED 100
[2021-06-20 05:11] LABS: PO2 Arterial 68.3 mmHg (80-100)
[2021-06-20 05:12] LABS: PCO2 Arterial > 105 mmHg (35-45); pH Blood Arterial 7.24 (7.35-7.45)
[2021-06-20 12:25] LABS: pH Blood Venous 7.29 (7.34-7.37)
[2021-06-20 12:26] LABS: Base Excess Venous 24.3 mmol/L; Bicarbonate Venous 43.6 mmol/L (24.0-30.0); PCO2 Venous > 105 mmHg (38-42)
--- NOTE | 2021-06-20 12:56 | NUR ---
PALLIATIVE CARE ORDER PER DR SCOTT, DR SCOTT ROUNDED EARLIER TODAY, REPORTED VSS, MENTATION, AND VBG RESULTS. NO NEW ORDERS
--- NOTE | 2021-06-20 17:01 | NUR ---
reported heart rate 110-130s, sbp 100-110s, no new changes, heart rate and sbp is patients baseline, no new orders
--- NOTE | 2021-06-20 18:00 | NUR ---
PATIENT DOESN'T MAKES NEEDS KNOWN, MOANS AND REPEATS WORMS, UNABLE TO REORIENT, RESP 25-40, CONITNUALLY MOVES BIPAP MASK, SATS 90-100%, BIPAP 50%, , HEART RATE 110-130, SBO 100-110, REPORTED HEART RATE TO DR SCOTT, NO CHANGES FOR ORDERS YET, THIS IS PATIENTS BASELINE. TELE ST. HAS NOT WANTED WATER OR ORAL CARE, TEMP MEDINA TO GRAVITY, OUTPUT 1000+ TODAY CLEAR YELLOW URINE, TEMP 100.2, SKININTACT, NPO EXCEPT SIPS AND MEDICATIONS, POOR SWALLOW TODAY, ATIVAN GIVEN X2 TODAY. WILL RELAY TO PM RN, WCTM
--- NOTE | 2021-06-20 23:51 | NUR ---
SHIFT START PT NOT CONVERSING WITH STAFF CURRENTLY. OCCASIONALLY PULLS BIPAP OFF, WHEN THIS AHPPENS, PT DESATS TO <80%. [place] ADDDED TO BIPAP, RT CHANGED SETTINGS AND ORAL CARE NOW BEING PROVED THROUGH THIS. PT HAS RECEIVED ONE DOSE IV ATIVAN TO PREVENT PT FROM PULLING MASK OFF THIS SHIFT SO FAR. PT FEBRILE AT BEGINNING OF SHIFT >100 F, TREWNDING DOWNWARD CURRENTLY (99.9F), PT CONSTANTLY REPOSITIONING SELF IN BED. REMAINS IN ISOLATION. FAMILY UPDATED ON CONDITION.
[2021-06-21 04:04] LABS: Magnesium, Blood 1.9 mg/dL (1.6-2.4); Phosphorus, Blood 3.1 mg/dL (2.5-4.9)
--- NOTE | 2021-06-21 05:21 | NUR ---
SHIFT SUMMARY PT HAS REQUIRED ATIVAN A COUPLE TIMES THIS SHIFT TO PREVENT HER FROM PULLING THE BIPAP MASK OFF. REMAINS TACHY CARDIC 100-130 BUT HAS GENERALLY REMAINED AT 120. BP STABLE. REMAINS TACHYPNEIC WITH RR >20 A LAJORITY OF THE TIME. 20/14 50% FOR BIPAP SETTINGS WITH SPO2 >92%. MENTATION NOT CHANGED FROM BEGINNING OF SHIFT. MEDINA REMAINS PATENT AND DRAINING. POWERGLIDE PATENT, DRAWS BLOOD WELL. PT REPOSITIONING HERSELF IN BED. BED ALARM ON. PT IN LOW POSITION.
--- NOTE | 2021-06-21 07:42 | NUR ---
patient thrashing in bed, pulled bipap mask off, sats 69%, recovered to 93% reconnected, medicated with ativan, rt rounded, calm presently
--- NOTE | 2021-06-21 11:55 | NUR ---
Case Conference Note Reviewed chart and discussed case with Primary RN Razia. Pt remains on BIPAP with CO2 levels increasing. Family may benefit from therapeutic conversation. Called and spoke with Pt's SO (boyfriend) Clifton. Reviewed plan of care and answered questions. Offered therapeutic listening as Clifton reports Pt having 23 year old son Hosea and a 15 year old daughter Shani. Provided update and discussed Pt's wishes for not to be intubated. Gentle discussion regarding Pt's wishes with CPR and chest compressions. Continued therapeutic listening and answered questions. Provided Palliative Care contact information and instructed to call with any questions or concerns. Palliative Care will remain available.
--- NOTE | 2021-06-21 13:13 | NUR ---
SO IJEOMA TO BE IN TODAY, PATIENT CONTINUES TO HAVE RESTLESS MOVEMENTS IN THE BED, NO COMPHREHENDABLE WORDS THIS AM
--- NOTE | 2021-06-21 18:32 | NUR ---
PATEINT UNABLE TO MAKE NEEDS KNOWN, OPENS EYES TO STIMULUS AND PAIN, FALLS QUICKLY BACK TO SLEEP, ANXIOUS RESTLESS MOVEMENTS IN BED ALL DAY, REPOSITIONING SELF, LS- DIMINISHED, BIPAP 55% 20/, TACHYPNEA 30-50S, HEART RATE 110-130S, HEART RATE AND RESPIRATIONS PATIENT BASELINE, NO NEW MEDICATIONS ORDERED. PALLIATIVE CARE NURSE CONSULTED FOR PATIENT. IJEOMA BOSE OTHER CONTACTED BY PALLIATIVE CARE NURSE. NO TOLERATING SIPS OF WATER, FAILED BEDSIDE SWALLOW EVAL, ST EVAL AND TX ORDERED FOR TOMORROW. CLINIDIMIX AND LIPIDS INFUSING. MEDICATED WITH ATIVAN X2. WILL RELAY TO PM RN, BALJIT
--- NOTE | 2021-06-21 20:00 | NUR ---
Assumed care after report recieved. Assessment complete. Bipap in place, lungs very diminished bilat. Responds to physcial stimuli. Does not track with eyes when pupils assessed. Moans and thrashes in bed on occasion.
[2021-06-22 03:51] LABS: BASOPHILS ABSOLUTE AUTO 0.01 K/mm3 (0.00-0.23); BASOPHILS PERCENT AUTO 0 % (0-2); EOSINOPHILS PERCENT AUTO 0 % (0-6); Hematocrit 39.2 % (33.0-51.0); Mean Corpuscular HGB 28.3 pg (26.0-34.0); Mean Corpuscular HGB Conc 28.1 g/dL (31.5-36.5); Mean Corpuscular Volume 101 fL (80-100); Mean Platelet Volume 11.7 fL (9.1-12.4); Platelet Count 67 K/mm3 (150-400); RDW Coefficient Variation 12.7 % (11.7-14.2); RDW Standard Deviation 47.7 fL (35.1-46.3); Red Blood Cell Count 3.89 M/mm3 (3.80-5.20); White Blood Cell Count 4.82 K/mm3 (4.00-11.30)
[2021-06-22 03:55] LABS: IMMATURE GRAN ABSOLUTE AUTO 0.03 K/mm3 (0.00-0.10); IMMATURE GRAN PERCENT AUTO 1 % (0-1); LYMPHOCYTES ABSOLUTE AUTO 0.48 K/mm3 (0.84-5.20); LYMPHOCYTES PERCENT AUTO 10 % (21-46); MONOCYTES ABSOLUTE AUTO 0.24 K/mm3 (0.16-1.47); MONOCYTES PERCENT AUTO 5 % (4-13); NEUTROPHILS ABSOLUTE AUTO 4.06 K/mm3 (1.96-9.15); NEUTROPHILS PERCENT AUTO 84 % (41-73)
[2021-06-22 04:09] LABS: Alanine Aminotransfer (ALT/SGP 126 U/L (12-78); Albumin/Globulin Ratio 0.9 (0.8-1.8); Alk Phos 50 U/L (50-136); Aspartate Aminotrans (AST/SGOT 102 U/L (12-37); Bilirubin, Total 0.3 mg/dL (0.1-1.0); Blood Urea Nitrogen 19 mg/dL (8-24); Bun/Creatinine Ratio 60.1 (12.0-20.0); Calcium, Blood 9.1 mg/dL (8.5-10.1); Chloride, Blood 88 mmol/L (98-108); Creatinine, Blood 0.32 mg/dL (0.40-1.00); Globulin, Blood 3.4 g/dL (2.2-4.0); Glomerular Filtration Rate >60 (60-); Glucose, Blood 154 mg/dL (70-99); Magnesium, Blood 2.1 mg/dL (1.6-2.4); Potassium, Blood 4.4 mmol/L (3.5-5.5); Sodium, Blood 139 mmol/L (136-145); Total Protein, Blood 6.4 g/dL (6.4-8.2)
[2021-06-22 04:37] LABS: Anion Gap Unable to Calculate mmol/L (6-16)
[2021-06-22 04:38] LABS: CO2, Blood >45 mmol/L (21-32)
--- NOTE | 2021-06-22 05:16 | NUR ---
No changes through out shift. Does not follow directions, responds to physcial stimuli. Unable to communicate needs. Will thrash around in bed, but calms quickly. All po meds held due to not coherent enough to swallow or follow dirctions. Unable to make needs known. Bipap in place. CO2 this am >45, down from >105.
--- NOTE | 2021-06-22 10:20 | NUR ---
CARE ASSUMPTION PT RESPONDING TO PAINFUL STIMULI ONLY, DOES NOT OPEN EYES. PT INTERMITTENTLY RESTLESS IN BED, ABLE TO MOVE ALL EXTREMITIES, BUT IS NOT ABLE TO FOLLOW COMMANDS. BILAT EYE LIDS W/ NOTED SWELLING. VSS. SPO2 > 92% ON BIPAP: /, 55% O2. MONITOR SHOWING ST, HR 110's. CLINIMIX GTT INFUSING PER ORDERS. MEDINA CATH PATENT & DRAINING. BED ALARM ON.
--- NOTE | 2021-06-22 18:20 | NUR ---
SHIFT SUMMARY PT MORE RESTLESS THIS AFTERNOON, OPENING EYES BRIEFLY, STILL UNABLE TO FOLLOW COMMANDS. PRN IV ATIVAN GIVEN X1. PT VSS. SPO2 > 92% ON BIPAP: , 55% O2. MONITOR SHOWING SR-ST, HR 80's-120's. CLINIMIX GTT INFUSING PER ORDERS. MEDINA CATH PATENT & DRAINING. BED ALARM ON.
--- NOTE | 2021-06-22 20:05 | NUR ---
Assumed care after report recieved. Assessment complete. Restless and thrashing around in bed. Does not follow directions or open eyes. IV started, attempts to pull away when holding arm to find IV site. Moans with physical stimuli. BIPAP with full faceshield, still having difficult time keeping good seal. straps readjusted due to air leak.
[2021-06-23 03:52] LABS: BASOPHILS ABSOLUTE AUTO 0.01 K/mm3 (0.00-0.23); BASOPHILS PERCENT AUTO 0 % (0-2); EOSINOPHILS PERCENT AUTO 0 % (0-6); Hematocrit 40.9 % (33.0-51.0); Hemoglobin 11.4 g/dL (11.5-16.0); Mean Corpuscular HGB 28.3 pg (26.0-34.0); Mean Corpuscular HGB Conc 27.9 g/dL (31.5-36.5); Mean Corpuscular Volume 102 fL (80-100); Mean Platelet Volume 11.9 fL (9.1-12.4); Platelet Count 87 K/mm3 (150-400); RDW Coefficient Variation 12.7 % (11.7-14.2); RDW Standard Deviation 47.8 fL (35.1-46.3); Red Blood Cell Count 4.03 M/mm3 (3.80-5.20); White Blood Cell Count 9.47 K/mm3 (4.00-11.30)
[2021-06-23 04:00] LABS: IMMATURE GRAN PERCENT AUTO 1 % (0-1); LYMPHOCYTES PERCENT AUTO 14 % (21-46); MONOCYTES PERCENT AUTO 7 % (4-13); NEUTROPHILS PERCENT AUTO 79 % (41-73)
[2021-06-23 04:01] LABS: IMMATURE GRAN ABSOLUTE AUTO 0.05 K/mm3 (0.00-0.10); LYMPHOCYTES ABSOLUTE AUTO 1.33 K/mm3 (0.84-5.20); MONOCYTES ABSOLUTE AUTO 0.63 K/mm3 (0.16-1.47); NEUTROPHILS ABSOLUTE AUTO 7.45 K/mm3 (1.96-9.15)
[2021-06-23 04:14] LABS: Blood Urea Nitrogen 21 mg/dL (8-24); Bun/Creatinine Ratio 65.6 (12.0-20.0); Calcium, Blood 9.2 mg/dL (8.5-10.1); Chloride, Blood 88 mmol/L (98-108); Creatinine, Blood 0.32 mg/dL (0.40-1.00); Glomerular Filtration Rate >60 (60-); Glucose, Blood 147 mg/dL (70-99); Magnesium, Blood 2.2 mg/dL (1.6-2.4); Phosphorus, Blood 3.5 mg/dL (2.5-4.9); Potassium, Blood 4.9 mmol/L (3.5-5.5); Sodium, Blood 139 mmol/L (136-145)
[2021-06-23 04:37] LABS: Anion Gap Unable to Calculate mmol/L (6-16)
[2021-06-23 04:38] LABS: CO2, Blood >45 mmol/L (21-32)
--- NOTE | 2021-06-23 06:13 | NUR ---
No significant changes through out night. Continues to have altered LOC and does not follow directions. Ativan given x1 through shift due to increased agitation, thrashing and pulling at BIPAP and unable to redirect.
--- NOTE | 2021-06-23 09:29 | NUR ---
ASSUMING PT CARE: PT RESTING W/ EYES CLOSED W/ BIPAP , 55%. DOES NOT OPEN EYES, WITHDRAWS SLIGHTLY FROM PAINFUL STIM, NO WITHDRAWAL OR GAG W/ ORAL CARE. TOLERATING BIPAP WELL. VSS. DISCUSSED SPEECH EVAL W/ SPEECH THERAPIST, PT IS NOT ALERT ENOUGH TO BE EVALUATED. EVAL DEFERRED TO TOMORROW IF PT IS MORE ALERT.
--- NOTE | 2021-06-23 12:10 | NUR ---
PT CONTINUES TO LAY IN BED, NO IMPROVEMENTS IN MENTATION. TOLERATES ORAL CARE WELL W/ NO COUGH, GAG. BiPAP , 55% VS UPDATED & STABLE. NO NEW ORDERS @ FILTER CHANGER ROUNDING.
--- NOTE | 2021-06-23 19:20 | NUR ---
Assumed care after report recieved. Assessment complete. Lungs still very diminished bilat. Bipap in place with full face mask. Very restless, attempting to climb out of bed. Will moan and mumble when spoken to, but incomprehensable. Does not follow directions. Boosted in bed and repositioned, but continues to thrash around and attempts to get up out of bed. Will not open eyes. Bipap alarming from airleak due to constant movement Ativan given for agitation.
--- NOTE | 2021-06-24 06:30 | NUR ---
No significant changes throughout night. Calmed after ativan given. Intermittent thrashing around in bed, but no further attempts to climb out of bed or to pull at bipap. Occasional episodes of movement causing air leak, able to fix easily. Mental status this am is unchanged, still does not attempt to communicate and unable to follow requests.
--- NOTE | 2021-06-24 07:50 | NUR ---
ASSUMING PT CARE: PT LAYING SUPINE IN BED, RESTLESS. DOES NOT OPEN EYES OR RESPOND TO NAME. WITHDRAWS FROM NOX STIM. DOES NOT FOLLOW COMMANDS. BiPAP 22/14, 15/50%. TACHYPNEIC. STRONG, NONPRODUCTIVE COUGH. BED ALARM ON & CURTAINS LEFT OPEN FOR BETTER PT VISUALIZATION.
--- NOTE | 2021-06-24 12:15 | NUR ---
PT CONTINUES TO BE SOMNOLENT @ TIMES, UNABLE TO OPEN EYES OR FOLLOW COMMANDS, & WHEN AGITATED PT IS THRASHING AROUND IN THE BED. DEBBIE AWARE & REQUESTS PT NOT RECEIVE ANY SEDATION TODAY TO ASSESS MENTATION. SHE HAS NOT RECEIVED ANY SEDATION MEDS, INCLUDING ATIVAN, SINCE 1999 YESTERDAY.
--- NOTE | 2021-06-24 13:31 | NUR ---
UPDATE: FAMILY UPDATE PT's SISTER LULI GIVEN UPDATE ON PT PROGRESSION. SHE CONFIRMS THAT @ BASELINE, PT DOES NOT HAVE ANY DEFICITS & IS ABLE TO PERFORM ADLs INDEPENDENTLY @ HOME. PT CONTINUES TO NOT OPEN EYES BUT AT TIMES SQUEEZE HANDS UPON COMMAND. WHEN AGITATED PT YELLS INTO THE BiPAP MASK BUT IS UNABLE TO VERBALIZE NEEDS OR BE CONSOLED. +BEATRIZ BED RAILS, +BED ALARM, +CURTAINS OPEN.
--- NOTE | 2021-06-24 18:34 | NUR ---
SHIFT SUMMARY: MENTATION APPEARS TO BE IMPROVING. PT RESPONDS APPROPRIATELY @ TIMES, ASKING TO GO TO THE BATHROOM, STS YES/NO, & IS ABLE TO SQUEEZE HANDS & OPEN EYES @ REQUEST. SHE CONTINUES TO BE VERY CONFUSED, OFTEN TRYING TO CRAWL OUT OF BED. GOSMAN UPDATED & PT WILL TRANSITION TO AIRVO SOON RT IS AVAILABLE. ORAL CARE CONTINUES TO BE DIFFICULT PT IS VERY RESTLESS & IS OFTEN COUGHING UP THICK CHRISTOPHER SPUTUM. +BM THIS SHIFT. 1050ml UOP. SEE PREVIOUS NOTATIONS FOR PT PROGRESSION.
--- NOTE | 2021-06-24 19:38 | NUR ---
ASSUMED CARE OF PT, BEDSIDE REPORT RECEIVED. PT IS RESTING QUIETLY WITH FREQUENT POSITION CHANGES NOTED. SHE DOES MUMBLE RESPONSES TO INQUIRIES HOWEVER ONLY RARE WORD IS UNDERSTANDABLE. PER OFFGOING RN, PLAN IS TO CHANGE TO ATTEMPT HEATED HUMIDIFIED HIGH FLOW OXYGEN THIS SHIFT. PT DOES FOLLOW COMMANDS WITH ASSESSMENT, DOES NOT OPEN EYES. BIPAP IN PLACE, ADJUSTED BY RT DURING ASSESSMENT TO 14/8, FIO2 50% SATS CURRENTLY MAINTAINING MID 90S. SINUS TACH NOTED ON MONITOR, RATE 110S, PRESSURES MAINTAINING STABLE, SKIN PWD, NO EDEMA NOTED, STRONG PULSES, BRISK CAP REFILL. TEMP PROBE MEDINA IN PLACE DRAINING CLEAR YELLOW URINE TO GRAVITY AT THIS TIME. WILL MONIOTOR.
--- NOTE | 2021-06-25 05:58 | NUR ---
PT CONTINUES WITH FREQUENT POSITION CHANGES THROUGHOUT NOC, MENTATION WAS NOTED TO IMPROVE PT IS NOW USING FULL SENTENCES TO MAKE NEEDS KNOWN. HAS NOT USED CALL LIGHT THIS SHIFT AND DOES CONTINUE TO ASK "WHERE AM I?" HOWEVER ALSO STATES "I NEED MY CPAP" BUT VERBALIZES UNDERSTANDING WHEN BIPAP IN USE IS EXPLAINED TO HER COMPARED TO HER HOME UNIT. LUNGS CONTINUE DIMINISHED THROUGHOUT, SATS MAINTAIN WITH BIPAP 22/14, FIO2 INITIALLY 50% HOWEVER PT SATS DECREASED AFTER ORAL CARE AND INCREASE TO 60% WAS REQUIRED FOR A DURATION, CURRENTLY TITRATING DOWN AND AT 55% WITH SATS 95%. RT ADJUSTED BIPAP SETTINGS TO 14/8 WITH 50% FIO2 IN ATTEMPT TO TRANSITION TO HEATED HUMIDIFIED HIGH FLOW OXYGEN EARLY IN THE SHIFT, FOLLOWING WHICH PT TIDAL VOLUMES DECREASED TO 200-230 ML WITH NOTED INCREASE IN WORK OF BREATHING AND ANXIETY/RESTLESSNESS. PT HAS CONTINUED IN SINUS TACH THROUGHOUT NOC, PRESSURES CONTINUE TO MAINTAIN STABLE. BOWELS CONTINUE HYPOACTIVE, NO BM THIS SHIFT. TEMP PROBE MEDINA REMAINS IN PLACE, 925 ML URINE OUTPUT THIS SHIFT.
--- NOTE | 2021-06-25 07:55 | NUR ---
ASSUMING PT CARE: PT RESTLESS, ALTERNATING FROM TRIPODING TO SUPINE. SPEECH IS VERY SLURRED BUT PT IS ABLE TO MAKE NEEDS KNOWN. ANXIOUS & TEARFUL. PT STS "I DON'T KNOW IF I'M IN THE RIGHT PLACE, WHAT HOSPITAL IS THIS?", "I SHOULD BE W/ MY MOM, BUT MY MOM IS ". PT ABLE TO BE CONSOLED W/ THERAPEUTIC CONVERSATION & VERBAL REDIRECTION. GIVEN SHORT BREAK FROM BiPAP & SPEECH IMPROVED, HOWEVER SATS BEGAN TO DROP TO 80s AFTER 3min. SPEECH EVAL HELD UNTIL PT CAN BE TRANSITIONED TO AIRVO. WILL DISCUSS UPDATES W/ INTENSITIVIST ONCE AVAILABLE.
[2021-06-25 09:44] LABS: Base Excess Venous 30.6 mmol/L; Bicarbonate Venous 50.7 mmol/L (24.0-30.0); PCO2 Venous 96.2 mmHg (38-42); PO2 Venous 52.1 mmHg (38-42); pH Blood Venous 7.37 (7.34-7.37)
--- NOTE | 2021-06-25 09:54 | NUR ---
UPDATE: BiPAP SETTINGS BiPAP PS TITRATED INCREMENTALY FROM to 18/8, WHICH IS THE SETTINGS SHE USES @ HOME. SPO2 MAINTAINING >92%. SHE DID HAVE A SHORT EPISODE OF LOW TVs, BUT RESOLVED W/ REPOSITIONING. PT RESTING SOUNDLY, MAINTAINING TVs IN THE 300s. VBG DONE. RITTER AWARE.
[2021-06-25 12:54] LABS: Base Excess Venous 30.6 mmol/L; Bicarbonate Venous 50.5 mmol/L (24.0-30.0); PO2 Venous 77.5 mmHg (38-42); pH Blood Venous 7.35 (7.34-7.37)
--- NOTE | 2021-06-25 13:20 | NUR ---
UPDATE: UP IN CHAIR & AIRVO PT CONTINUES TO DO WELL ON BiPAP 18/8, 45% BUT APPEARS VERY RESTLESS & ANXIOUS, FREQUENTLY LEANING OVER BEDRAILS & CALLING OUT FOR FAMILY. PT WAS ABLE TO STAND & PIVOT TO BSC & THEN TO RECLINER. BEDSIDE TABLE SECURED SO PT IS ABLE TO REST IN A TRIPODING POSITION; APPEARS LESS ANXIOUS. VBG DRAWN & RITTER AGREES PT SHOULD BE PLACED ON AIRVO. PLACED @ 50L, 55% FiO2. SHE CONTINUES TO BE ANXIOUS BUT IS EASILY REORIENTED W/ RN PRESENCE. DOOR LEFT OPEN & CALL LIGHT W/ IN REACH.
--- NOTE | 2021-06-25 14:00 | NUR ---
UPDATE: ISO DC'd DISCUSSED ISOLATION ORDER & PT PRESENTATION W/ INFECTION CONTROL. ISOLATION TRISTAN'toy. RITTER AWARE.
--- NOTE | 2021-06-25 14:53 | NUR ---
PT CONTINUES TO DO WELL ON AIRVO 50L, 55% FiO2. SWALLOW EVAL SUCCESSFUL & PT IS NOW CLEARED TO HAVE PUREED FOODS & THIN LIQUIDS. SHE IS DOING WELL IN THE RECLINER & IS ABLE TO MAKE NEEDS KNOWN. SHE IS TEARFUL @ TIMES & ASKS TO TALK TO SPOUSE & SISTER. SPOUSE CALLED & MESSAGE LEFT. SISTER CALLED & UPDATED, SHE WILL ALSO UPDATE SPOUSE. NO PLANS FOR VISITORS TODAY BUT THEY MAY BE ABLE TO COME TOMORROW & BRING HER HOME CPAP.
[2021-06-25 15:36] LABS: PCO2 Venous 103 mmHg (38-42)
[2021-06-25 15:51] LABS: Base Excess Venous 28.7 mmol/L; Bicarbonate Venous 47.6 mmol/L (24.0-30.0); PO2 Venous 47.6 mmHg (38-42); pH Blood Venous 7.29 (7.34-7.37)
--- NOTE | 2021-06-25 16:00 | NUR ---
UPDATE: HIGH CO2 2ND VBG RESULTED IN INCALCULABLE CO2. RITTER AWARE. PT MORE SOMNOLENT & W/ INCREASINGLY SLURRED SPEECH. BiPAP REPLACED @ PREVIOUS HOME SETTINGS W/ HOME MASK BROUGHT IN BY SPOUSE. PT TOLERATING WELL, SPO2 >95%.
--- NOTE | 2021-06-25 18:17 | NUR ---
SHIFT SUMMARY: PT SLEEPING SOUNDLY, AROUSABLE ONLY W/ PAINFUL STIM, NO LONGER VERBAL, MOANS @ TIMES. BiPAP SETTINGS NOW 24/, RR 24, FiO2 45%. SPO2 91%. PT WAS ABLE TO TRANSITION TO AIRVO FOR A SHORT TIME THIS AFTERNOON, BUT WAS PLACED BACK ON BiPAP AFTER CO2 FOUND TO BE INCALCULABLE. RITTER AWARE, PLAN TO KEEP BiPAP ON UNTIL HE CAN RE-EVAL IN THE MORNING. FAMILY UPATED T/O THE DAY. SEE PREVIOUS NOTATION FOR PT PROGRESSION.
--- NOTE | 2021-06-25 19:31 | NUR ---
ASSUMED CARE OF PT, BEDSIDE REPORT RECEIVED. PT DOES MOAN AND MOVE AWAY FROM NOXIOUS STIMULI, NONVERBAL AT THIS TIME. DOES ROUSE AND ADJUST HOME BIPAP MASK INTERMITTENTLY, DOES OPEN EYES WHEN INSTRUCTED HOWEVER IMMEDIATELY CLOSES THEM. BIPAP SETTINGS ARE NOTED AT 24/12 FIO2 50% RATE 24, CURRENT TIDAL VOLUMES LOW 400S, SATS LOW 90S, LUNGS DIM THROUGHOUT, FAINT EXPIRATORY WHEEZE TO RIGHT UPPER LOBE ANTERIORLY. HRR, SINUS TACH NOTED ON MONITOR, PRESSURES CONT MAINTAINING STABLE, PULSES FULL, BRISK CAP REFILL. HYPOACTIVE BOWEL TONES NOTED, ABD SOFT, NO GRIMACING WITH PALPATION. TEMP PROBE MEDINA REMAINS IN PLACE, URINE OUTPUT YELLOW/HAZY AT THIS TIME.
--- NOTE | 2021-06-25 22:26 | NUR ---
PT RESTLESS, TURNING SIDE TO SIDE IN BED AT LEAST ONCE EVERY 5 MINUTES, CALLING OUT FOR "MOM" PULLING AT BLOOD PRESSURE CUFF, INTERMITTENTLY SITTING UP AND ATTEMPTING TO GET UP OOB HOWEVER IS UNABLE TO STATE WHERE SHE WISHES TO GO IF SHE GETS UP, ATTEMPTED TO USE BEDPAN X 2 WITHOUT RESULTS. OXYGEN REQUIREMENTS INCREASED TO FIO2 60% WITH INCREASE IN ACTIVITY, ATIVAN 2 MG IV ADMINISTERED PER ORDERS WILL MONITOR.
--- NOTE | 2021-06-25 23:07 | NUR ---
PT SATS INITIALLY IMPROVED POST ATIVAN TO 96-97% WITH FIO2 AT 60% ON ARRIVAL TO ROOM FOR REASSESSMENT OF AGITATION, PT IS NOTED TO HAVE HEAD ON RIGHT BEDRAIL WITH BIPAP TUBING TANGLED IN GOWN AND BEDDING AND LARGE LEAK NOTED. PT SITS UP AWAY FROM BED DURING REPOSITIONING AND BIPAP DISCONNECTS FROM PT, SATS DECREASED TO 78-79% RAPIDLY, CONTINUED AT 80% WITH BIPAP MASK REPLACED AND LEAK DECREASED TO 6L/MIN. FIO2 INCREASED TO 100% BEFORE SATS IMPROVED TO HIGH 80S, LUNG SOUNDS CONFIRMED UNCHANGED, RT NOTIFIED, SATS ARE CURRENTLY 96% AND FIO2 HAS BEEN TITRATED DOWN TO 95%, WILL CONTINUE TITRATING PT TOLERATES.
[2021-06-26 04:26] LABS: Base Excess Venous 29.7 mmol/L; Bicarbonate Venous 49.8 mmol/L (24.0-30.0); PCO2 Venous 98.2 mmHg (38-42); PO2 Venous 76.8 mmHg (38-42); pH Blood Venous 7.36 (7.34-7.37)
[2021-06-26 04:29] LABS: BASOPHILS ABSOLUTE AUTO 0.02 K/mm3 (0.00-0.23); BASOPHILS PERCENT AUTO 0 % (0-2); EOSINOPHILS PERCENT AUTO 0 % (0-6); Hematocrit 40.1 % (33.0-51.0); Hemoglobin 11.2 g/dL (11.5-16.0); IMMATURE GRAN ABSOLUTE AUTO 0.06 K/mm3 (0.00-0.10); IMMATURE GRAN PERCENT AUTO 0 % (0-1); LYMPHOCYTES ABSOLUTE AUTO 0.64 K/mm3 (0.84-5.20); LYMPHOCYTES PERCENT AUTO 5 % (21-46); MONOCYTES ABSOLUTE AUTO 0.76 K/mm3 (0.16-1.47); MONOCYTES PERCENT AUTO 5 % (4-13); Mean Corpuscular HGB 27.9 pg (26.0-34.0); Mean Corpuscular HGB Conc 27.9 g/dL (31.5-36.5); Mean Corpuscular Volume 100 fL (80-100); Mean Platelet Volume 11.6 fL (9.1-12.4); NEUTROPHILS ABSOLUTE AUTO 12.85 K/mm3 (1.96-9.15); NEUTROPHILS PERCENT AUTO 90 % (41-73); Platelet Count 155 K/mm3 (150-400); RDW Coefficient Variation 12.6 % (11.7-14.2); RDW Standard Deviation 46.7 fL (35.1-46.3); Red Blood Cell Count 4.02 M/mm3 (3.80-5.20); White Blood Cell Count 14.33 K/mm3 (4.00-11.30)
[2021-06-26 05:15] LABS: Blood Urea Nitrogen 24 mg/dL (8-24); Bun/Creatinine Ratio 76.2 (12.0-20.0); Calcium, Blood 9.2 mg/dL (8.5-10.1); Chloride, Blood 85 mmol/L (98-108); Creatinine, Blood 0.32 mg/dL (0.40-1.00); Glomerular Filtration Rate >60 (60-); Glucose, Blood 145 mg/dL (70-99); Potassium, Blood 4.4 mmol/L (3.5-5.5); Sodium, Blood 138 mmol/L (136-145); Triglycerides 133 mg/dL (30-160)
[2021-06-26 05:20] LABS: Anion Gap Unable to Calculate mmol/L (6-16); CO2, Blood >45 mmol/L (21-32)
--- NOTE | 2021-06-26 06:10 | NUR ---
PT WITH INCREASING RESTLESSNESS/AGITATION IN THE BEGINNING OF THIS SHIFT, MEDICATED WITH ATIVAN 2 MG IV AT 2225 AFTER EMAR REVIEW OF PREVIOUSLY ADMINISTERED ATIVAN DOSES. PT WAS NOTED TO BECOME DIFFICULT TO AROUSE FROM 2230 UNTIL 0600 AT WHICH TIME PT IS BEGINNING TO BECOME RESTLESS IN THE ROOM AGAIN. LUNG SOUNDS CONTINUE DIMINISHED THROUGHOUT, BIPAP PRESSURES INCREASED TO 26/12 FOR LOW TIDAL VOLUMES AND FIO2 WAS INCREASED TO 60% OF THIS TIME TO MAINTAIN SATS 93%. SINUS TACH CONTINUES, WAS NOTED UPPER 130S WITH ELEVATED TEMP HOWEVER HAS IMPROVED WITH TEMP CONTROL. PRESSURES CONTINUE TO MAINTAIN.
--- NOTE | 2021-06-26 08:12 | NUR ---
Received report from Diana MARVIN. Patient sleeping on BIPAP. She arouse to sternal rub and cand state where she is at and falls right back to sleep. She is on BIPAP 26/12 and 55% with sats 93%. she has 20ga IV to LW and is flusahed and SL. She has 20PowerGlide to FREDDY and had Clinimix and Dietary had me turn off as it has 10 dextrose with 4.25 clinimix, so flushed and stopped and called pharmacy. She has 16 Fr temp graves draining to gravity light khadijah colored urine and temp of 100.6.
--- NOTE | 2021-06-26 09:23 | NUR ---
Dr Masters by with hospitalist and made adjustments to BIPAP to 30/05 55% and sats 93%. Patient moves in bed for self comfort. No other changes.
--- NOTE | 2021-06-26 11:28 | NUR ---
Patient having problems with her home mask sealing and placed her on home machine and tirated from home 5L O2 to 15 L O2 without success with sats in the low 80%'s. Dr Masters stated if does not increase sats to place back on V60 and RT did and she sats low 90%. Oral care done. She has moderate amount thick hoawrd mucus.
--- NOTE | 2021-06-26 13:56 | NUR ---
Patient significant other arrives with her face peice for her system. She is currently on AirVo 50L 70% wqith sats 95%and sat up and was assissted with lunch and ate about 6%. No other significant changes. ST 120-130's.
--- NOTE | 2021-06-26 15:37 | NUR ---
Dr Masters by and reduced AirVo to 50L 50% and sats 92%. ECHO in room doing procedure. She remains restless and showing some effort to breath. VSS.
--- NOTE | 2021-06-26 15:52 | NUR ---
Pt. was alert. Pt. welcomed my visit. Communication was rough to understand. (Demographics indicate a history of drug abuse). Pt. seemed to be distracted by her hospital telephone. I asked pt. if I should return later. Pt. indicated she wanted me to pray now. Prayed with pt. Pt. invited me to return. I will return in the AM and seek to identify the nature of her spiritual idenitity.
--- NOTE | 2021-06-26 17:30 | NUR ---
Patient back on BIPAP 30/05 FiO2 55% sats 96%. She remains anxious. Cervantes output 700 ml and IV intake 200 ml. Started PPN at 85ml/hr. SCD bilaterally to LE's. VSS. 20 ga IV in LW WNL's and PowerGlide in FREDDY infusing C/D/I.
--- NOTE | 2021-06-26 20:00 | NUR ---
Assumed care after report recv'd. assessment complete. very anxious, constantly moving in bed. attempts made to calm. Pt states "I am probably going to ", will only answer some questions. can not keep good seal on bipap mask due to so much movement in bed. ativan given agiatation.
[2021-06-27 04:17] LABS: BASOPHILS ABSOLUTE AUTO 0.01 K/mm3 (0.00-0.23); BASOPHILS PERCENT AUTO 0 % (0-2); EOSINOPHILS PERCENT AUTO 0 % (0-6); Hematocrit 39.1 % (33.0-51.0); Hemoglobin 11.1 g/dL (11.5-16.0); IMMATURE GRAN ABSOLUTE AUTO 0.07 K/mm3 (0.00-0.10); IMMATURE GRAN PERCENT AUTO 1 % (0-1); LYMPHOCYTES ABSOLUTE AUTO 0.53 K/mm3 (0.84-5.20); LYMPHOCYTES PERCENT AUTO 4 % (21-46); MONOCYTES ABSOLUTE AUTO 0.45 K/mm3 (0.16-1.47); MONOCYTES PERCENT AUTO 4 % (4-13); Mean Corpuscular HGB Conc 28.4 g/dL (31.5-36.5); Mean Corpuscular Volume 99 fL (80-100); NEUTROPHILS PERCENT AUTO 92 % (41-73); Platelet Count 170 K/mm3 (150-400); RDW Coefficient Variation 12.6 % (11.7-14.2); RDW Standard Deviation 45.3 fL (35.1-46.3); Red Blood Cell Count 3.97 M/mm3 (3.80-5.20); White Blood Cell Count 12.56 K/mm3 (4.00-11.30)
[2021-06-27 04:29] LABS: Magnesium, Blood 2.1 mg/dL (1.6-2.4); Phosphorus, Blood 3.6 mg/dL (2.5-4.9)
--- NOTE | 2021-06-27 05:31 | NUR ---
On BIPAP 60% through out night. Alert and able to talk, but difficult to assess full orientation level. Answers some questions but will not answer all questions. Clear speech at times, but mainly very difficult to understand due to mumble speech. very anxious at times, pulling off bipap mask, trying to move self to end of bed. RR increasing into 40s with anxiety. Ativan given as needed. See eMAR. Resting at this time with eyes closed.
--- NOTE | 2021-06-27 07:19 | NUR ---
Received report from Kim MARVIN. Patient restless with BIPAP in place. She has BIPAP in place with settings of 20/12 55% and sats 95%. She is arousable to verbal and nocious stimuli and falls right back to sleep. She has full face mask in place. She has 20ga IV to LW and is flushed and SL'd, she also has Powerglide to FREDDY dressing intact and site WNL's and is infusing PPN at 85 ml/hr with itermmitent Abx. She has 16 Fr temp graves draining to gravity light khadijah colroed urine and temp 99.9. She has SCD bilaterally to LE's. She has fan in bed for cooling. SDhe continues to twist and turn in bed and gets tangled up very frequently.
--- NOTE | 2021-06-27 09:41 | NUR ---
Patient resting quietly with her home mask and V60 on VPAP 550/12 55% and sats 94%. Dr Masters and hospitalist have seen patient and no [facility] orders. VSS. NPO until fully awake which she has not yet been, very agitated with care and refused to be repositioned to fix mask, even after educating her on side effects of not wearing properly.
[2021-06-27 10:46] LABS: Bicarbonate Venous 54.2 mmol/L (24.0-30.0); PCO2 Venous 78.2 mmHg (38-42); pH Blood Venous 7.48 (7.34-7.37)
[2021-06-27 10:47] LABS: Base Excess Venous 34.7 mmol/L; PO2 Venous 21.6 mmHg (38-42)
--- NOTE | 2021-06-27 12:09 | NUR ---
Patient remains on AVPAP 550/12/55% and sats low 90%. Patient up in cahir after bath and linen change. Desats to low 80s with any exertion. SCD remain bilaterally to LE's.
[2021-06-27 12:39] LABS: Blood Urea Nitrogen 21 mg/dL (8-24); Calcium, Blood 9.4 mg/dL (8.5-10.1); Chloride, Blood 87 mmol/L (98-108); Creatinine, Blood 0.38 mg/dL (0.40-1.00); Glomerular Filtration Rate >60 (60-); Glucose, Blood 148 mg/dL (70-99); Potassium, Blood 4.7 mmol/L (3.5-5.5); Sodium, Blood 139 mmol/L (136-145)
[2021-06-27 12:40] LABS: Anion Gap Unable to Calculate mmol/L (6-16); CO2, Blood >45 mmol/L (21-32)
--- NOTE | 2021-06-27 13:30 | NUR ---
Patient stayed up in chair for a little bit and transferred back to bed with 1 assist. She was medicated for anxiety per MAR. When she awakens she pulls at mask and need to go in and fix very frequent. VSS. SCD's remains LE's.
--- NOTE | 2021-06-27 15:20 | NUR ---
No significant changes with patient.
--- NOTE | 2021-06-27 17:34 | NUR ---
Patient placed back on AirVo 50L 55% and sats 97%. She is sitting up in bed feeding herself dinner with observation. She has 20ga Power Elton that continuies PPN at 85ml/hr, NS at 200ml/hr until this liter is done. She continues to be anxious in bed and repositions frequently. VSS. SCD bilaterally to LE's. 16 Fr temp graves draining to gravity light khadijah urine and had 900 ml output, temp 99.9.
--- NOTE | 2021-06-27 19:50 | NUR ---
Assumed care after report recv'd. assessment complete. very restless, request something to "calm down". Ativan given. Able to answer some questions, easily distracted. constant movement in bed. Lungs diminished bilat, tolerating Hi-flow oxygen well.
--- NOTE | 2021-06-27 21:00 | NUR ---
changed over to bipap by RT, very agitated, pulling at mask, attempting to climb out of bed. When attempts made by nurse to calm starts hitting bed, stating to "get it off" Ativan given per eMAR. continued attempts made to calm. changed back over to high-flow
--- NOTE | 2021-06-27 21:50 | NUR ---
spoke with Dr Masters regarding resp status and inablility to keep bipap on. Orders recv'd for high-flow oxygen sats before changing over to bipap and if need to place back on bipap may start precedex in order to keep bipap on
--- NOTE | 2021-06-28 01:00 | NUR ---
Continues to be very agitated, pulling off high flow oxygen, pulling at lines, attempting to climb out of bed. oxygen sats dropping to 70% very quickly after pulling off oxygen. Unable to redirect to get to leave oxygen on. Placed back on bipap and started precedex in order to keep oxygen in place per Dr order.
--- NOTE | 2021-06-28 02:00 | NUR ---
precedex at 0.7 mcg and continues to be very agitated, pulling off bipap, attempting to pull off cables for monitors. Ativan given for agitation.
[2021-06-28 04:11] LABS: Base Excess Venous 23.7 mmol/L; Bicarbonate Venous 44.7 mmol/L (24.0-30.0); PCO2 Venous 77.1 mmHg (38-42); pH Blood Venous 7.41 (7.34-7.37)
[2021-06-28 04:15] LABS: Hematocrit 35.3 % (33.0-51.0); Hemoglobin 10.2 g/dL (11.5-16.0); Mean Corpuscular HGB 27.9 pg (26.0-34.0); Mean Corpuscular HGB Conc 28.9 g/dL (31.5-36.5); Mean Corpuscular Volume 97 fL (80-100); Mean Platelet Volume 11.8 fL (9.1-12.4); Platelet Count 174 K/mm3 (150-400); RDW Coefficient Variation 12.8 % (11.7-14.2); RDW Standard Deviation 45.6 fL (35.1-46.3); Red Blood Cell Count 3.65 M/mm3 (3.80-5.20)
[2021-06-28 04:19] LABS: BASOPHILS PERCENT AUTO 0 % (0-2); EOSINOPHILS PERCENT AUTO 0 % (0-6); IMMATURE GRAN ABSOLUTE AUTO 0.05 K/mm3 (0.00-0.10); IMMATURE GRAN PERCENT AUTO 1 % (0-1); LYMPHOCYTES ABSOLUTE AUTO 0.65 K/mm3 (0.84-5.20); LYMPHOCYTES PERCENT AUTO 6 % (21-46); MONOCYTES ABSOLUTE AUTO 0.81 K/mm3 (0.16-1.47); MONOCYTES PERCENT AUTO 8 % (4-13); NEUTROPHILS ABSOLUTE AUTO 8.91 K/mm3 (1.96-9.15); NEUTROPHILS PERCENT AUTO 86 % (41-73); White Blood Cell Count 10.42 K/mm3 (4.00-11.30)
[2021-06-28 04:33] LABS: Anion Gap 1 mmol/L (6-16); Blood Urea Nitrogen 22 mg/dL (8-24); Bun/Creatinine Ratio 76.4 (12.0-20.0); CO2, Blood 43 mmol/L (21-32); Calcium, Blood 9.1 mg/dL (8.5-10.1); Chloride, Blood 94 mmol/L (98-108); Creatinine, Blood 0.29 mg/dL (0.40-1.00); Glomerular Filtration Rate >60 (60-); Glucose, Blood 198 mg/dL (70-99); Magnesium, Blood 2.2 mg/dL (1.6-2.4); Sodium, Blood 138 mmol/L (136-145)
--- NOTE | 2021-06-28 05:18 | NUR ---
very agitated through out night. Would not leave high flow cannula or bipap on. pulling at lines and attempting to get out of bed. would not calm or redirect. Oxygen sats dropping into high 60-70% with oxygen off. Little response with ativan. Started precedex in order to calm enough to leave oxygen/bipap in place. Precedex infusing at 0.6mcg at this time. Resting quietly but will respond to stimuli.
--- NOTE | 2021-06-28 18:27 | NUR ---
SUMMARY PT ON CPAP. A/O TO PERSON AND PLACE. MUMBLED SPEECH. TRIALED PT OFF OF CPAP A COUPLE TIMES TODAY. ON 4L NC PT DOES WELL IF SHE DOESN'T EXERT HERSELF IN ANY WAY (TALKING OR REPOSITIONING). SHE MADE IT A COUPLE HOURS ON 4L NC THE FIRST TRIAL, THEN ONLY ABOUT 30 MINUTES ON THE SECOND TRIAL. PT IS ON PRECEDEX WHICH SEEMS TO HELP KEEP HER CALM AND COOPERATIVE WITH CARE. PLACED MEPITEL ON BRIDGE OF NOSE WHERE CPAP HAS CREATED A RED SPOT. ATTEMPTED TO USE A GEL PAD BUT PT TOOK IT OUT. ZYPREXA STARTED TODAY. PT HAS BEEN ON THE LOW SIDE BUT PT HAS GOOD URINE OUTPUT. NO SIGN OF DISTRESS.
--- NOTE | 2021-06-28 19:30 | NUR ---
Assumed care after report recv'd. assessment complete. anxious but following directions and easily calmed. Did not eat dinner, assisted with eating dinner. tolerated well.
--- NOTE | 2021-06-28 21:50 | NUR ---
becoming more agitated. ativan given and precedex increased to 0.6 mcg. Washed hair and worked on getting untangled for distraction. tolerated well, and lying with eyes closed when nurse left room
--- NOTE | 2021-06-28 23:15 | NUR ---
increased agitation, pulled bipap mask completely apart. yelling "I am not wearing it" attempts to calm unseccessful. trying to climb out of bed. hitting bed and grabs bipap mask and throws it when nurse attempts to replace. has been taking mask off and had to be placed back on several times. precedex increased and ativan given.
[2021-06-29 04:16] LABS: Hematocrit 33.9 % (33.0-51.0); Hemoglobin 10.1 g/dL (11.5-16.0); Mean Corpuscular HGB 27.9 pg (26.0-34.0); Mean Corpuscular HGB Conc 29.8 g/dL (31.5-36.5); Mean Corpuscular Volume 94 fL (80-100); Mean Platelet Volume 11.5 fL (9.1-12.4); Platelet Count 211 K/mm3 (150-400); RDW Coefficient Variation 12.8 % (11.7-14.2); RDW Standard Deviation 43.9 fL (35.1-46.3); Red Blood Cell Count 3.62 M/mm3 (3.80-5.20)
[2021-06-29 04:17] LABS: BASOPHILS ABSOLUTE AUTO 0.01 K/mm3 (0.00-0.23); BASOPHILS PERCENT AUTO 0 % (0-2); EOSINOPHILS PERCENT AUTO 0 % (0-6); IMMATURE GRAN ABSOLUTE AUTO 0.03 K/mm3 (0.00-0.10); IMMATURE GRAN PERCENT AUTO 0 % (0-1); LYMPHOCYTES ABSOLUTE AUTO 0.94 K/mm3 (0.84-5.20); LYMPHOCYTES PERCENT AUTO 10 % (21-46); MONOCYTES ABSOLUTE AUTO 0.31 K/mm3 (0.16-1.47); MONOCYTES PERCENT AUTO 3 % (4-13); NEUTROPHILS ABSOLUTE AUTO 7.75 K/mm3 (1.96-9.15); NEUTROPHILS PERCENT AUTO 86 % (41-73); White Blood Cell Count 9.04 K/mm3 (4.00-11.30)
[2021-06-29 04:37] LABS: Albumin, Blood 2.4 g/dL (3.4-5.0); Anion Gap 3 mmol/L (6-16); Blood Urea Nitrogen 24 mg/dL (8-24); Bun/Creatinine Ratio 63.3 (12.0-20.0); CO2, Blood 42 mmol/L (21-32); Calcium, Blood 8.9 mg/dL (8.5-10.1); Chloride, Blood 94 mmol/L (98-108); Creatinine, Blood 0.38 mg/dL (0.40-1.00); Glomerular Filtration Rate >60 (60-); Glucose, Blood 182 mg/dL (70-99); Phosphorus, Blood 4.3 mg/dL (2.5-4.9); Potassium, Blood 5.3 mmol/L (3.5-5.5); Sodium, Blood 139 mmol/L (136-145)
--- NOTE | 2021-06-29 05:58 | NUR ---
Very agitated through night attempting to climb out of bed and pulling off bipap mask. Would not redirect or calm. Precedex drip increased, infusing at 0.7 mcg at this time Will wake up and start pulling off mask. Ativan given prn for increased agitation.
--- NOTE | 2021-06-29 06:50 | NUR ---
very agitated, pulled bipap mask off and tore apart. attempting to pull out lines and climb out of bed. yelling and cussing at staff. will not calm or redirect, will not allow nurses to put on bipap or oxygen. O2 sats down to 83%. order obtained and applied bilat wrist restraints. Ativan given, see eMAR.
--- NOTE | 2021-06-29 07:26 | NUR ---
REPORTED FROM MIRA RN, PATIENT PRESEENTLY RESTING, MEDICATED BY PM RN, RT IN ROOM WITH PATIENT, PATIENT WAS PULLING AT LINES, RESTRAINTS PLACED, UNABLE TO RE ORIENT, WCTM
--- NOTE | 2021-06-29 09:43 | NUR ---
REPORTED TO DR NINA [id number] PATIENT INCREASED RESTLESSNESS, AGITATION, RESTRAINTS, AND MENTATION. DR NINA GAVE TO ORDER FOR THE MAX DOSE OF PRECEDEX TO BE 1.4 MCG, PRECEDEX INFUSING AT 0.9 MCG, WILL CONTINUE TO MONITOR
--- NOTE | 2021-06-29 15:03 | NUR ---
ASSUME CARE: I have assumed care of pt at this time.
--- NOTE | 2021-06-29 15:10 | NUR ---
UPDATE: Dr Berger called and notified of pt's hypotension. See new orders
--- NOTE | 2021-06-29 19:08 | NUR ---
SHIFT SUMMARY: Pt tolerated Airvo at 45% for about an hour at a time while eating. PRN Fentanyl given for headache and back pain. Precedex was titrated off for a few hours this afternoon which she tolerated well until she became anxious about calling her daughter. Pt then quickly became aggitated and required PRN ativan and resumption on precedex. She received two 1 liter NS boluses for hypotension.
[2021-06-30 04:30] LABS: Anion Gap 0 mmol/L (6-16); Blood Urea Nitrogen 19 mg/dL (8-24); Bun/Creatinine Ratio 54.3 (12.0-20.0); CO2, Blood 42 mmol/L (21-32); Calcium, Blood 8.4 mg/dL (8.5-10.1); Chloride, Blood 98 mmol/L (98-108); Creatinine, Blood 0.35 mg/dL (0.40-1.00); Glomerular Filtration Rate >60 (60-); Glucose, Blood 209 mg/dL (70-99); Phosphorus, Blood 4.7 mg/dL (2.5-4.9); Potassium, Blood 4.9 mmol/L (3.5-5.5); Sodium, Blood 140 mmol/L (136-145)
--- NOTE | 2021-06-30 07:00 | NUR ---
ASSUME CARE: I have assumed care of pt. At this time she is resting quietly in bed with Airvo in place at 45% and precedex running at 0.7.
--- NOTE | 2021-06-30 18:39 | NUR ---
SHIFT SUMMARY: Pt on Airvo at 50% all day and tolerated it well. PRN ativan, fentyl, and hycet given for air hunger while precedex titrated down; pt only pulled cannula off once today. She was appropriately interactive with staff today and ate all meals eagerly with assistance.
[2021-07-01 00:56] LABS: Albumin, Blood 3.1 g/dL (3.4-5.0); Blood Urea Nitrogen 16 mg/dL (8-24); Bun/Creatinine Ratio 35.5 (12.0-20.0); Calcium, Blood 8.9 mg/dL (8.5-10.1); Chloride, Blood 93 mmol/L (98-108); Creatinine, Blood 0.45 mg/dL (0.40-1.00); Glomerular Filtration Rate >60 (60-); Glucose, Blood 202 mg/dL (70-99); Phosphorus, Blood 4.7 mg/dL (2.5-4.9); Potassium, Blood 4.5 mmol/L (3.5-5.5); Sodium, Blood 142 mmol/L (136-145); Vancomycin, Trough 11.1 ug/mL (5.0-10.0)
[2021-07-01 01:20] LABS: Anion Gap Unable to Calculate mmol/L (6-16); CO2, Blood >45 mmol/L (21-32)
--- NOTE | 2021-07-01 17:50 | NUR ---
Shift Summary: Patient on Airvo NC throughout majority of shift, 45-50L/50%, spO2 86-96%. Dr. Berger encouraged use of standard high-flow NC during morning rounds. Patient able to tolerate HF/NC at 8L for approx 1hour this afternoon. At that work of breathing increased, spO2 decreased to 84-85%. Trial patient home Trilogy on AVAPS mode, but patient unable to tolerate as she appeared to pull low tidal volumes and SpO2 decreased to 70%. Patient then placed on [id number] mode, tolerated without difficulty. HR increased from sinus tach in low 100's to sinus tach in the 140's this afternoon. BP remained stable, no s/s of bleeding. Spoke with Dr. Berger who ordered 500ml bolus, little effect seen. Again called Dr. Berger this afternoon, received order for additional 1L bolus over 3hr. HR now 133-135, BP stable, will continue to monitor. Cervantes cath patent and intact, draining clear yellow urine. Powerglide to FREDDY patent and intact, infusing without difficulty. Patient sleeping and appears comfortable. Will continue to monitor until report to NOC shift RN.
--- NOTE | 2021-07-01 20:14 | NUR ---
PATIENT AWAKE, ABLE TO FEED SELF DINNER WITH A LITTLE DIFFICULTY DUE TO POOR COORDINATION, BUT ABLE TO EAT 100% AND DRINK HER MILK AND ENSURE. PATIENT A&O BUT SPEECH IS DIFFICULT TO UNDERSTAND AT TIMES DUE TO MUMBLING. PATIENT REQUESTING SOMETHING TO HELP HER RELAX, ATIVAN 1 MG IV GIVEN. PATIENT BIOX 86-91% ON AIRVO HIGHFLOW 45L FIO2 55% OCCASIONAL STRONG MOIST NONPRODUCTIVE COUGH. BIOX DOWN TO 73% ON RA WHEN NC FELL OUT OF NOSE, RECOVERED QUICKLY. MONITOR CONTINUES TO SHOW SINUS TACH 130'S AFTER NS BOLUS COMPLETE.
--- NOTE | 2021-07-01 21:36 | NUR ---
PATIENT ELIZABETH PO MEDICATIONS WITHOUT DIFFICULTY. VERBALIZED READY FOR BED. AVAP PLACED EPAP 10, RATE 24, FIO2 55% BY RT.
--- NOTE | 2021-07-01 23:43 | NUR ---
PATIENT REQUESTING TO HAVE AVAP OFF, AIRVO REPLACED 45L FIO2 55%
[2021-07-02 03:48] LABS: BASOPHILS ABSOLUTE AUTO 0.01 K/mm3 (0.00-0.23); BASOPHILS PERCENT AUTO 0 % (0-2); EOSINOPHILS ABSOLUTE AUTO 0.08 K/mm3 (0.00-0.68); EOSINOPHILS PERCENT AUTO 1 % (0-6); Hematocrit 34.1 % (33.0-51.0); Hemoglobin 9.5 g/dL (11.5-16.0); IMMATURE GRAN ABSOLUTE AUTO 0.07 K/mm3 (0.00-0.10); IMMATURE GRAN PERCENT AUTO 1 % (0-1); LYMPHOCYTES ABSOLUTE AUTO 2.06 K/mm3 (0.84-5.20); LYMPHOCYTES PERCENT AUTO 21 % (21-46); MONOCYTES ABSOLUTE AUTO 0.97 K/mm3 (0.16-1.47); MONOCYTES PERCENT AUTO 10 % (4-13); Mean Corpuscular HGB 27.6 pg (26.0-34.0); Mean Corpuscular HGB Conc 27.9 g/dL (31.5-36.5); Mean Platelet Volume 11.2 fL (9.1-12.4); NEUTROPHILS ABSOLUTE AUTO 6.56 K/mm3 (1.96-9.15); NEUTROPHILS PERCENT AUTO 67 % (41-73); Platelet Count 257 K/mm3 (150-400); RDW Coefficient Variation 13.1 % (11.7-14.2); Red Blood Cell Count 3.44 M/mm3 (3.80-5.20); White Blood Cell Count 9.75 K/mm3 (4.00-11.30)
[2021-07-02 03:52] LABS: Mean Corpuscular Volume 99 fL (80-100)
[2021-07-02 04:15] LABS: Albumin, Blood 2.6 g/dL (3.4-5.0); Blood Urea Nitrogen 18 mg/dL (8-24); Bun/Creatinine Ratio 61.2 (12.0-20.0); Calcium, Blood 8.6 mg/dL (8.5-10.1); Chloride, Blood 93 mmol/L (98-108); Creatinine, Blood 0.29 mg/dL (0.40-1.00); Glomerular Filtration Rate >60 (60-); Glucose, Blood 153 mg/dL (70-99); Phosphorus, Blood 4.4 mg/dL (2.5-4.9); Sodium, Blood 140 mmol/L (136-145)
[2021-07-02 04:16] LABS: Anion Gap Unable to Calculate mmol/L (6-16); CO2, Blood >45 mmol/L (21-32)
--- NOTE | 2021-07-02 04:50 | NUR ---
PLACED BACK ON AVAP FIO2 50% RATE 24 EPAP 10.
--- NOTE | 2021-07-02 06:26 | NUR ---
SUMMARY PATIENT SLEEPING OFF AND ON T/O NIGHT. ONLY USING AVAP FOR SHORT TIME. NOW ON AIRVO 45L FIO2 50% HEART RATE CONTINUES SINUS TACH NOW IN THE 110-120'S WITH SMALL RUN OF PVC'S EARLY THIS MORNING. PATIENT SPEECH CONTINUES TO BE HARD TO UNDERSTAND AT TIMES. GENERALIZED WEAKNESS CONTINUES, ATTEMPTING TO ASSIST WITH ADLS AND WITH FEEDING SELF.
--- NOTE | 2021-07-02 07:33 | NUR ---
ASSUMED CARE: PT RESTING IN BED, ON AIRVO AT 45L AND 50% FIO2. ALTERNATES BETWEEN AIRVO AND BIPAP. NO ACUTE NEEDS AT THIS TIME.
--- NOTE | 2021-07-02 09:30 | NUR ---
DR LEWIS CAME TO SEE PT AND IS AWARE OF PT ALTERNATING BETWEEN BIPAP AND AIRVO. STATES PT IS A PT OF DR OLIVER'S AND HE CHECKED WITH DR OLIVER REGARDING PT'S BASELINE. INSTRUCTED RESPIRATORY TO CHECK PT'S SETTINGS ON HOME BIPAP AND TRY TO MATCH OUR SETTINGS TO THOSE
--- NOTE | 2021-07-02 10:00 | NUR ---
PT'S SIGNIFICANT OTHER CALLED AND STATED THAT HE COULD NOT FIND PT'S VICTOZA. WILL ALERT DOCTOR WHEN AVAILABLE
--- NOTE | 2021-07-02 11:00 | NUR ---
OT AT BEDSIDE DOING EVALUATION AT THIS TIME
--- NOTE | 2021-07-02 11:42 | NUR ---
SPEECH AT BEDSIDE DOING EVALUATION AT THIS TIME
--- NOTE | 2021-07-02 14:40 | NUR ---
DISCUSSED PT'S HR WITH DR LEWIS WHO STATES SINCE IT IS SINUS TACH, IT IS LIKELY COMPENSATION DUE TO STEROIDS, ANXIETY AND CURRENT HEALTH STATUS. STATES TO MEDICATE FOR HR CONSISTENTLY IN 140S AND CARDIZEM PO AC OTHERWISE. SUPERVISOR [employer] REPAIR AWARE
--- NOTE | 2021-07-02 18:21 | NUR ---
SHIFT SUMMARY: PT CURRENTLY ON AIRVO AT 45L AND 50% FIO2. DR LEWIS REQUESTS BIPAP WITH SLEEP AND ABG THIS EVENING ONLY IF PT STAYS ON BIPAP FOR 4-5 HOURS. PLAN IS FOR RT TO USE HOME SETTINGS ON BIPAP AND APPLY THEM TO PT ON OURS TO GET PT CLOSE TO HOME SETTINGS PRIOR TO DC. PT HAS BEEN CONFUSED AT TIMES AND IMPULSIVE. BED ALARMS IN PLACE.
--- NOTE | 2021-07-02 19:43 | NUR ---
PATIENT SLEEPING WITH AIRVO 50L FIO2 55% IN PLACE. AWAKENS TO VERBAL STIMULI, REFUSING TO HAVE BIPAP PLACED AT THIS TIME. OCCASIONAL MOIST NONPRODUCTIVE COUGH. PATIENT SPONTANEOUS AND IMPULSIVE AT TIMES, NEEDING REMINDING TO NOT REMOVE HER OXYGEN. OXYGEN QUICKLY DOWN TO LOW 80'S HIGH 70'S ON RA.
--- NOTE | 2021-07-02 21:00 | NUR ---
PATIENT VERBALIZED THAT SHE FEELS READY FOR BED AND AGREEING TO WEAR BIPAP. BIPAP 18/12 FIO2 55% BACK UP RATE OF [address]
[2021-07-03 02:19] LABS: PCO2 Arterial > 105 mmHg (35-45); PO2 Arterial 76.3 mmHg (80-100)
--- NOTE | 2021-07-03 02:30 | NUR ---
PATIENT AWAKE WANTING TO TAKE A BREAK FROM BIPAP AND HAVE SOMETHING TO EAT. RT CALLED AND ABG DONE DUE TO PATIENT ABLE TO WEAR BIPAP FOR ALMOST 6 HRS. PLAN TO REPLACE BIPAP WHEN PATIENT FINISHED WITH SNACK. FIO2 TITRATED DOWN TO 50%
--- NOTE | 2021-07-03 03:19 | NUR ---
PATIENT REQUESTING SOMETHING TO HELP HER RELAX TO BE ABLE TO ELIZABETH BIPAP. BIPAP PLACED 18/12 FIO2 50% AFTER ATIVAN 2MG GIVEN
[2021-07-03 04:20] LABS: Albumin, Blood 2.9 g/dL (3.4-5.0); Blood Urea Nitrogen 19 mg/dL (8-24); Bun/Creatinine Ratio 62.9 (12.0-20.0); Chloride, Blood 86 mmol/L (98-108); Glomerular Filtration Rate >60 (60-); Glucose, Blood 196 mg/dL (70-99); Phosphorus, Blood 3.9 mg/dL (2.5-4.9); Sodium, Blood 137 mmol/L (136-145)
[2021-07-03 04:30] LABS: Anion Gap Unable to Calculate mmol/L (6-16)
[2021-07-03 04:42] LABS: CO2, Blood >45 mmol/L (21-32)
--- NOTE | 2021-07-03 05:47 | NUR ---
SUMMARY PATIENT SLEEPING WITH BIPAP 18/12 FIO2 45% IN PLACE. ATIVAN GIVEN TWICE DURING THE NIGHT TO HELP PATIENT ELIZABETH WEARING THE BIPAP. WHEN BIPAP OFF, AIRVO 50L FIO2 50% IN PLACE. PATIENT CONTINUES TO BE IMPULSIVE WHEN AWAKE, VERBALIZED UNDERSTANDING REGARDING NEED TO LEAVE OXYGEN IN PLACE YET CONTINUES TO REMOVE MASK OR NC WITHOUT CALLING.
--- NOTE | 2021-07-03 17:27 | NUR ---
SUMMARY PT AWAKE, A/O X4. HAS BEEN UP TO CHAIR TWICE TODAY. PT IS MINIMAL 1 ASSIST OOB. MOVES SELF IN BED WELL. PT WAS VERY SEDATED EARLY IN THE AM. ALL SEDATIVES HELD TODAY AND SHE HAS DONE WELL WITH THAT. HAS BEEN CALM AND COOPERATIVE. CALLS WITH CALL LIGHT APPROPRIATELY. ON AND OFF BIPAP WITH AIRVO FOR BREAKS. PT WILL ASK TO GO BACK ON MASK WHEN SHE IS TIRED. EATING MEALS BY HERSELF. HAS BEEN TALKING ON CELL PHONE WITH FAMILY. NO SIGN OF DISTRESS.
[2021-07-04 03:43] LABS: PCO2 Arterial 91.5 mmHg (35-45); PO2 Arterial 81.7 mmHg (80-100); pH Blood Arterial 7.39 (7.35-7.45)
--- NOTE | 2021-07-04 05:57 | NUR ---
SHIFT SUMMARY PT ALERT AND ORIENTED. PT CALM AND COOPERATIVE T/O SHIFT. PT ABLE TO TURN SELF IN BED NEEDED. PT SLEEPING T/O SHIFT. HR STABLE. BP STABLE. OXYGEN SATURATION MAINATINED ABOVE 95% ON CPAP, SEE EHR FOR SETTINGS. PT USED AIRVO WHILE TAKING MEDS AND EATING/DRINKING. PT DESATS DOWN TO LOW 80'S, INCREASE IN SETTINGS UP TO 60L AND 65% FIO2 TO MAINTAIN SATS ABOVE 90%. NO CP OR PRESSURE REPORTED. WILL CONT TO MONITOR UNTIL REPORT GIVEN TO DAYSHIFT RN.
[2021-07-04 06:19] LABS: Albumin, Blood 2.9 g/dL (3.4-5.0); Blood Urea Nitrogen 23 mg/dL (8-24); Bun/Creatinine Ratio 71.7 (12.0-20.0); Chloride, Blood 87 mmol/L (98-108); Creatinine, Blood 0.32 mg/dL (0.40-1.00); Glomerular Filtration Rate >60 (60-); Glucose, Blood 127 mg/dL (70-99); Phosphorus, Blood 2.9 mg/dL (2.5-4.9); Potassium, Blood 4.6 mmol/L (3.5-5.5); Sodium, Blood 138 mmol/L (136-145)
[2021-07-04 06:31] LABS: Anion Gap Unable to Calculate mmol/L (6-16)
[2021-07-04 06:32] LABS: CO2, Blood >45 mmol/L (21-32)
--- NOTE | 2021-07-04 07:31 | NUR ---
REPORT FROM PM RN, CPAP ON, NO DISTRESS, CALL LIGHT WITH IN REACH, WCTM
--- NOTE | 2021-07-04 13:35 | NUR ---
OT IN WORKING WITH PATIENT, BALJIT
--- NOTE | 2021-07-04 18:26 | NUR ---
PATIENT ALERT AND ORIENTED X4, MAKES NEEDS KNOWN, SPEECH CLURRED AND FAST AT TIMES, FOLLOWS DIRECTIONS, CALL LIGHT WITH IN REACH, NO IMPULSIVE, STAND BY ASSIST TO TRANSFER, DESATS EASILY. WORKED WITH PT/OT, DESATED TO 70% ONCE AND RECOVERED, LS DIM, CLEARS CONGESTION WITH COUGH, HEART RATE 100-120S, MEDICATED WITH SCHEDULED CARDIZEM, DENIES CP, SBP 103-130S. DIET INCREASED TO BITE SIZE PIECES, SUPERVISION WHEN EATING. TEMP MEDINA TO GRAVITY, CLEAR YELLOW URINE. AIRVO AT 45L 55%, EASILY DESATS WHEN TALKING. CALL LIGHT WITH INREACH, WILL RELAY TO PM RN, BALJIT
--- NOTE | 2021-07-04 20:00 | NUR ---
ASSUMED CARE RECEIVED REPORT FROM SHAVONNE GUSMAN AT 1900. PT A/O X4, ABLE TO EXPRESS NEEDS WELL, UTILIZED CALL LIGHT APPROPRIATELY, AND REPOSITIONS SELF FREQUENTLY. SHE SEEMS SOMEWHAT ANXIOUS, BUT STATES SHE IS OKAY. SHE CURRENTLY HAS A HEADACHE AND WE ARE AWAITING IMITREX FROM PHARMACY. SHE HAS LOW GRADE FEVER IN 99 RANGE. RT IN ROOM AND CHANGED FROM AIRVO TO BIPAP, SETTINGS 22/12 FIO2 DECREASED FROM 60 TO 50%, SPO2 >95%. LUNGS CLEAR IN UPPERS, COARSE CRACKLES IN BASES. HR IS ST IN 100'S. BP STABLE. TEMP MEDINA PATENT, DRAINING TO GRAVITY, YELLOW CLEAR URINE. PT IS ABLE TO TAKE DRINKS NEEDED AND ABLE TO ADJUST BIPAP MASK TO COMFORT AND MINIMIZE LEAKS. ORDERS REVIEWED, WILL TREAT PRESCRIBED.
--- NOTE | 2021-07-04 23:54 | NUR ---
PT CONTINUES TO COMPLAIN OF HEADACHE, PRN IMITREX GIVEN AGAIN. SHE IS ALSO VERY HOT, FAN IS ON HER AND COOL WASHCLOTHS AND ICE PACKS GIVEN. TEMPERATURE NOW AFEBRILE AT 98.4. SHE WAS VERY TEARFUL AND "WANTS TO GO HOME TO BE WITH HER DOG." WAS ABLE TO REDIRECT AND CALM DOWN. SHE IS CURRENTLY SLEEPING, VSS, SPO2 96% WITH FIO2 DOWN TO 45%.
[2021-07-05 03:52] LABS: Base Excess Venous 25.9 mmol/L; Bicarbonate Venous 46.7 mmol/L (24.0-30.0); PCO2 Venous 78.7 mmHg (38-42); PO2 Venous 53.6 mmHg (38-42); pH Blood Venous 7.42 (7.34-7.37)
[2021-07-05 04:01] LABS: BASOPHILS PERCENT AUTO 0 % (0-2); EOSINOPHILS PERCENT AUTO 0 % (0-6); Hematocrit 35.1 % (33.0-51.0); Hemoglobin 10.3 g/dL (11.5-16.0); IMMATURE GRAN ABSOLUTE AUTO 0.03 K/mm3 (0.00-0.10); IMMATURE GRAN PERCENT AUTO 1 % (0-1); LYMPHOCYTES ABSOLUTE AUTO 0.52 K/mm3 (0.84-5.20); LYMPHOCYTES PERCENT AUTO 8 % (21-46); MONOCYTES ABSOLUTE AUTO 0.16 K/mm3 (0.16-1.47); MONOCYTES PERCENT AUTO 3 % (4-13); Mean Corpuscular HGB 28.1 pg (26.0-34.0); Mean Corpuscular HGB Conc 29.3 g/dL (31.5-36.5); Mean Corpuscular Volume 96 fL (80-100); Mean Platelet Volume 10.6 fL (9.1-12.4); NEUTROPHILS ABSOLUTE AUTO 5.73 K/mm3 (1.96-9.15); NEUTROPHILS PERCENT AUTO 89 % (41-73); Platelet Count 333 K/mm3 (150-400); RDW Coefficient Variation 13.1 % (11.7-14.2); RDW Standard Deviation 46.1 fL (35.1-46.3); Red Blood Cell Count 3.66 M/mm3 (3.80-5.20); White Blood Cell Count 6.44 K/mm3 (4.00-11.30)
[2021-07-05 04:20] LABS: Blood Urea Nitrogen 23 mg/dL (8-24); Bun/Creatinine Ratio 63.4 (12.0-20.0); Chloride, Blood 91 mmol/L (98-108); Creatinine, Blood 0.36 mg/dL (0.40-1.00); Glomerular Filtration Rate >60 (60-); Glucose, Blood 144 mg/dL (70-99); Phosphorus, Blood 3.6 mg/dL (2.5-4.9); Potassium, Blood 4.5 mmol/L (3.5-5.5); Sodium, Blood 138 mmol/L (136-145)
[2021-07-05 04:36] LABS: Anion Gap Unable to Calculate mmol/L (6-16)
[2021-07-05 04:37] LABS: CO2, Blood >45 mmol/L (21-32)
--- NOTE | 2021-07-05 05:54 | NUR ---
SHIFT SUMMARY PT SLEPT WELL MOST OF SHIFT, BIPAP REMAINED IN PLACE FROM 1900 ON. BIPAP REMAINS 22/12, FIO2 AT 40%. CRITICAL CARBON DIOXIDE OF >45 THIS AM, HOWEVER THIS IS EXPECTED AND HAS BEEN CRITICALLY HIGH FOR SEVERAL DAYS. SHE REMAINS A/O x4, NOW AFEBRILE, TMAX OF 99.7. LUNGS REMAIN COARSE IN BASES, BUT SLIGHTLY IMPROVED SINCE BEGINNING OF SHIFT, SPO2 >92%. MEDINA REMAINS PATENT, 1200ML YELLOW URINE OUT. VSS T/O SHIFT. WILL REPORT TO ONCOMING SHIFT WHEN AVAILABLE.
--- NOTE | 2021-07-05 07:25 | NUR ---
REPORT FROM LULI ALVARADO RN, RT CHECKING BIPAP IN ROOM NOW, PATIENT RESTING, NO DISTRESS, VSS/REVEIWED, TKO INFUSING, CALL LIGHT WITH IN REACH, WCTM
--- NOTE | 2021-07-05 09:35 | NUR ---
DR FISH ROUNDED, PATIENT TO BE CHANGED TO PCU STATUS TODAY, PATIENT NEEDS ONE FULL NIGHT ON HOME BIPAP TO MAKE SURE IT IS WORKING FOR HER BEFORE DISCHARGE
--- NOTE | 2021-07-05 16:21 | NUR ---
REPORT TO MILTON RN PCU, PATIENT TRANSFERRED TO ROOM PCU 18, TRANSFERRED VIA W/C, PATIENT TOLERATED WITH EASE, ALERT AND ORIENTED X4, AIRVO ON 45L 50%, PATIENT TO USE HOME BIPAP TONIGHT
--- NOTE | 2021-07-05 18:38 | NUR ---
PCU ARRIVAL / SHIFT SUMMARY PT BROUGHT TO PCU-18 @ APPROX 1600. PT A&O X4, ABLE TO STAND & TRANSFER FROM TO PCU BED W/ SBA. PT VSS. SPO2 > 92% ON HI-SADAF NC @ B45L, FIO2 50%, TITRATED DOWN TO 35L, FIO2 40% THIS SHIFT W/ PT TOLERATING WELL. HOME BIPAP @ BEDSIDE FOR NOC USE. PT REPORTS USING BIPAP @ NOC & 5L NC @ HOME BASELINE.
--- NOTE | 2021-07-06 06:06 | NUR ---
SHIFT SUMMARY ASSUMED CARE OF PT AT 1900. PT IS A/OX4. HEART SOUNDS TACHY. LUNG SOUNDS VERY TIGHT WITH CRACKLES AT THE BASES. PT WORE AIRVO AT 40L 40%. PT WORE BIPAP T/O THE NIGHT. PT DID NOT COMPLAIN OF SOB BUT SHE DID C/O A HEADACHE. PT GIVEN ONE TIME DOSE OF IMITREX WITH NO RELIEIF AND ASKED THIS NURSE FOR OTHER MEDICATIONS. PT RECEIVED TYLENOL AND FINALLY SLEPT AT 0300. FLOEY DRAINING CLEAR YELLOW URINE.
[2021-07-06 09:49] LABS: Base Excess Venous 21.5 mmol/L; Bicarbonate Venous 41.8 mmol/L (24.0-30.0); PCO2 Venous 78.3 mmHg (38-42); PO2 Venous 44.2 mmHg (38-42); pH Blood Venous 7.38 (7.34-7.37)
--- NOTE | 2021-07-06 12:55 | NUR ---
PATIENT ALERT AND ORIENTED X4. NEURO WNL. VERY ANXIOUS AND EMOTIONAL. WANTING TO GO HOME AND UPSET ABOUT HER DOG AT HOME. PERRLA. ABLE TO MOVE ALL EXTREMITIES. 1 PERSON SBA TO CHAIR. TELE SHOWING SINUS TACH WITH HR 110'S-120'S. INCREASE HR AND DESATS WHEN UP MOVING AROUND. BP STABLE. NO SIGNS OF EDEMA. ON HOME TRILOGY BIPAP ALL NIGHT AND THIS MORNING. TRANSITIONED TO HIGH FLOW 40L AT 40% THIS AM FOR MEALS. BACK IN BED AT THIS TIME SLEEPING WITH BIPAP. DENIES ABDOMINAL PAIN/NAUSEA. MEDINA CATH REMOVED, PER PATIENT COMFORT. USING BEDSIDE COMMODE WITH 1 PERSON ASSIST. TOLERATING PO DIET WELL. CALL LIGHT IN REACH. WILL CONTINUE TO MONITOR.
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
--- NOTE | 2021-07-06 18:20 | NUR ---
SHIFT SUMMARY: NO ACUTE CHANGES. ANXIETY DECREASED THROUGHOUT SHIFT. NO CHANGES IN TELE. REMAINS SINUS TACH. REMAINS ON HOME TRILOGY BIPAP AND HIGH FLOW NASAL CANNULA AT 40L AND 45% WHEN UP IN CHAIR OR EATING. SITTING UP IN CHAIR FOR MEALS. MEDINA CATH DISCONTINUED THIS SHIFT. UP TO BSC WITH SBA. DESATS WITH MOVEMENT. VITAL SIGNS REMAIN STABLE. WILL CONTINUE TO MONITOR AND REPORT OFF.
[2021-07-07 05:17] LABS: BASOPHILS ABSOLUTE AUTO 0.01 K/mm3 (0.00-0.23); BASOPHILS PERCENT AUTO 0 % (0-2); EOSINOPHILS ABSOLUTE AUTO 0.01 K/mm3 (0.00-0.68); EOSINOPHILS PERCENT AUTO 0 % (0-6); Hematocrit 31.7 % (33.0-51.0); Hemoglobin 9.4 g/dL (11.5-16.0); IMMATURE GRAN ABSOLUTE AUTO 0.04 K/mm3 (0.00-0.10); IMMATURE GRAN PERCENT AUTO 0 % (0-1); LYMPHOCYTES ABSOLUTE AUTO 2.29 K/mm3 (0.84-5.20); LYMPHOCYTES PERCENT AUTO 25 % (21-46); MONOCYTES ABSOLUTE AUTO 0.77 K/mm3 (0.16-1.47); MONOCYTES PERCENT AUTO 9 % (4-13); Mean Corpuscular HGB 28.1 pg (26.0-34.0); Mean Corpuscular HGB Conc 29.7 g/dL (31.5-36.5); Mean Corpuscular Volume 95 fL (80-100); Mean Platelet Volume 10.7 fL (9.1-12.4); NEUTROPHILS ABSOLUTE AUTO 5.93 K/mm3 (1.96-9.15); NEUTROPHILS PERCENT AUTO 66 % (41-73); Platelet Count 330 K/mm3 (150-400); RDW Coefficient Variation 13.8 % (11.7-14.2); RDW Standard Deviation 47.6 fL (35.1-46.3); Red Blood Cell Count 3.35 M/mm3 (3.80-5.20); White Blood Cell Count 9.05 K/mm3 (4.00-11.30)
[2021-07-07 05:42] LABS: Albumin, Blood 2.8 g/dL (3.4-5.0); Anion Gap 2 mmol/L (6-16); Blood Urea Nitrogen 31 mg/dL (8-24); Bun/Creatinine Ratio 76.5 (12.0-20.0); CO2, Blood 43 mmol/L (21-32); Chloride, Blood 95 mmol/L (98-108); Creatinine, Blood 0.41 mg/dL (0.40-1.00); Glomerular Filtration Rate >60 (60-); Glucose, Blood 90 mg/dL (70-99); Phosphorus, Blood 3.6 mg/dL (2.5-4.9); Potassium, Blood 4.4 mmol/L (3.5-5.5); Sodium, Blood 140 mmol/L (136-145)
--- NOTE | 2021-07-07 06:09 | NUR ---
SHIFT SUMMARY ASSUMED CARE OF PT AT 1900. PT IS A/OX4 HEART SOUNDS TACHY. LUNG SOUNDS HAVE CRACKLES AT THE BASES. PT WORE BIPAP T/O THE NIGHT. PT STATES URGENTLY THAT SHE REALLY WANTS TO GET HOME TO SEE HER DOG. PT USED BSC INDEPENDENTLY. URINE CLEAR AND YELLOW. NO OTHER COMPLAINTS. MEDICATED FOR ANXIETY BEFORE BED AND PT SLEPT T/O THE NIGHT. CALL LIGHT IN REACH, BED IN LOWEST POSITION.
--- NOTE | 2021-07-07 11:19 | NUR ---
PATIENT ALERT AND ORIENTED X4. NEURO WNL. PERRLA. DENIES NUMBNESS/TINGLING. ABLE TO MOVE SELF IN BED AND SBA TO BSC/CHAIR. UP IN CHAIR FOR MEALS. TELE SHOWING SINUS TACH WITH HR 110-120'S. DENIES CHEST PAIN/PRESSURE. BP STABLE. NO SIGNS OF EDEMA. ON HOME TRILOGY BIPAP WHEN SLEEPING. TRANSITIONED TO 7L HIGH FLOW NASAL CANNULA. WEARS 5-6L BASELINE. DESATS WITH WALKING. DENIES ABDOMINAL PAIN/NAUSEA. TOLERATING PO DIET. USING CALL LIGHT. DR. RIGGINS IN TO SEE PATIENT THIS AM. PLAN IS TO SEE HOW PATIENT DOES ON 7L HIGH FLOW WITH SOME ACTIVITY. SLEEPING AT THIS TIME. WILL CONTINUE TO MONITOR.
--- NOTE | 2021-07-07 15:50 | NUR ---
UPDATE: CALL PLACED TO DR. RIGGINS REGARDING PATIENT O2 NEEDS. PATIENT ON 9-10L HIGH FLOW NASAL CANNULA, DESATS TO MID 80'S WHEN UP MOVING AROUND. ABLE TO RECOVER WITHIN A FEW MIN OF SITTING. DENIES LIGHTHEADEDNESS/DIZZY. SBA ASSIST.
--- NOTE | 2021-07-07 18:02 | NUR ---
SHIFT SUMMARY: NO ACUTE CHANGES THIS SHIFT. TELE REMAINS SINUS TACH WITH HR 110'S. ON 8L HIGH FLOW NASAL CANNULA SATING 89-93%. DESATS WITH MOVEMENT AND WALKING AROUND ROOM, BUT ABLE TO RECOVER WITHIN A FEW MINUTES. UP IN CHAIR FOR MEALS. IND TO BSC. DENIES NEEDS AT THIS TIME. WILL CONTINUE TO MONITOR AND REPORT OFF.
--- NOTE | 2021-07-08 01:58 | NUR ---
IN HOUSE TRANSFER PT WAS STATUS CHANGED TO MEDICAL AND MOVED TO ROOM 360. REPORT GIVEN TO YAZAN MARVIN. PT EDUCATED ON CHANGE OF STATUS AND COMPLIANT WITH CHANGE. PT TOLERATED TRANSFER WELL.
--- NOTE | 2021-07-08 02:41 | NUR ---
patient arrived from [facility] A&OX4 without any complaints of discomfort. currently >92 on 6 liters bleed in to her Trilogy. RT to come in and line service supervisor 02 splitter so that patient gavino use the BSC independently. No changes noted from evening assessment
[2021-07-08 05:42] LABS: BASOPHILS ABSOLUTE AUTO 0.02 K/mm3 (0.00-0.23); BASOPHILS PERCENT AUTO 0 % (0-2); EOSINOPHILS ABSOLUTE AUTO 0.04 K/mm3 (0.00-0.68); EOSINOPHILS PERCENT AUTO 1 % (0-6); Hematocrit 31.2 % (33.0-51.0); Hemoglobin 9.3 g/dL (11.5-16.0); IMMATURE GRAN ABSOLUTE AUTO 0.04 K/mm3 (0.00-0.10); IMMATURE GRAN PERCENT AUTO 1 % (0-1); LYMPHOCYTES ABSOLUTE AUTO 2.09 K/mm3 (0.84-5.20); LYMPHOCYTES PERCENT AUTO 24 % (21-46); MONOCYTES ABSOLUTE AUTO 0.76 K/mm3 (0.16-1.47); MONOCYTES PERCENT AUTO 9 % (4-13); Mean Corpuscular HGB 28.4 pg (26.0-34.0); Mean Corpuscular HGB Conc 29.8 g/dL (31.5-36.5); Mean Corpuscular Volume 95 fL (80-100); Mean Platelet Volume 10.6 fL (9.1-12.4); NEUTROPHILS ABSOLUTE AUTO 5.84 K/mm3 (1.96-9.15); NEUTROPHILS PERCENT AUTO 66 % (41-73); Platelet Count 291 K/mm3 (150-400); RDW Coefficient Variation 14.4 % (11.7-14.2); RDW Standard Deviation 50.2 fL (35.1-46.3); Red Blood Cell Count 3.27 M/mm3 (3.80-5.20); White Blood Cell Count 8.79 K/mm3 (4.00-11.30)
[2021-07-08 06:22] LABS: Albumin, Blood 2.9 g/dL (3.4-5.0); Anion Gap 0 mmol/L (6-16); Blood Urea Nitrogen 25 mg/dL (8-24); Bun/Creatinine Ratio 54.3 (12.0-20.0); CO2, Blood 42 mmol/L (21-32); Calcium, Blood 8.4 mg/dL (8.5-10.1); Chloride, Blood 97 mmol/L (98-108); Creatinine, Blood 0.46 mg/dL (0.40-1.00); Glomerular Filtration Rate >60 (60-); Glucose, Blood 94 mg/dL (70-99); Potassium, Blood 4.3 mmol/L (3.5-5.5); Sodium, Blood 139 mmol/L (136-145)
--- NOTE | 2021-07-08 07:56 | NUR ---
NO CHANGES AFTER INITIAL ARRIVAL ON THE FLOOR. Dena TOOK ONE ZOFRAN AFTER EATING, (SHE SAID SHE ATE TOO FAST), THEN SLEPT ALL NIGHT. SHE REMAINS VERY HAPPY ABOUT BEING ABLE TO GO HOME TODAY AND CONTINUES ON 6 LITERS 02
--- NOTE | 2021-07-08 09:48 | NUR ---
POWERGLIDE INTACT L ARM. SITE WNL AND SECURE WITH TEGADERM.
--- NOTE | 2021-07-08 09:49 | NUR ---
0925, PATIENT REAPPLIED TRILOGY WITH O2 AT 6 LPM. STATES WANTING TO TAKE A NAP FOR AWHILE. WILL MONITOR.
--- NOTE | 2021-07-08 16:54 | NUR ---
POWERGLIDE REMOVED LEFT ARM. PRESSURE DRESSING APPLIED. AWAITING DISCHARGE ORDER FROM MD. DISCHARGE TEACHING WILL BE COMPLETED THEN. PATIENT HAS HOME O2 ALREADY AND HER HOME SETTING WILL CONTINUE TO BE AT 5 LPM PER O2 EVALUATION DONE TODAY. SOMEONE HERE TO PICK HER UP HAS TO GO GET HER PORTABLE O2 FOR THE RIDE HOME AND WILL BE RETURNING SHORTLY. PATIENT DISCUSSING THAT WITH HIM NOW. WILL MONITOR.
[2021-07-08] MEDS ORDERED: DILT30 PO ×2 (17:05)
[2021-07-08] MEDS ORDERED: HYDHCL25 PO ×2 (17:08)
[2021-07-08] MEDS ORDERED: Prednisone10 MG PO ×2 (17:10)
[2021-07-08] MEDS ORDERED: FLUT1DIS5 INH ×2 (17:10)
--- NOTE | 2021-07-08 17:43 | NUR ---
DISCHARGE INSTRUCTIONS DISCUSSED WITH PATIENT. INFORMED THAT HER RX'S WERE SENT TO HER PHARMACY OF CHOICE. VERBALIZED UNDERSTANDING. AWAITING FOR THE PERSON DRIVING HER HOME TO RETURN WITH HER PORTABLE OXYGEN FOR THE RIDE HOME. INSTRUCTED HER TO CALL WHEN THEY ARRIVE SO SHE COULD BE WHEELED DOWN TO MEET THEM. VERBALED UNDERSTANDING.
--- NOTE | 2021-07-08 18:26 | NUR ---
STILL WAITING ON RIDE TO RETURN. NOTED TO BE VOMITTING. THINKS IT'S BECAUSE SHE OVER ATE. C/O ANXIETY WORRYING WHEN HER RIDE WILL GET BACK WITH HER O2. MEDICATED PER E-AUG. WILL MONITOR.
--- NOTE | 2021-07-08 18:37 | NUR ---
NAUSEA/VOMITTING RESOLVED. PATIENT DISCHARGE HOME PER WHEELCHAIR PER PERSONAL VEHICLE WITH SIGNIFICANT OTHER. AAO X 4. NO COMPLAINTS VOICED AT DISCHARGE.
--- NOTE | 2021-07-09 08:30 | NUR ---
Received referral from nurse ostomy care nurse (Fatoumata Cobos) on 07/05/2021. Patient discharged 07/08/2021 with orders for home health and elected [employer] [facility]. Met with patient on 07/06/2021 to further discuss the above. Patient is somewhat agreeable to the above. Discussed with patient that this race and sports book writer would check back with her on Friday- 07/09/2021 regarding home health services. Patient is agreeable to this plan. Review of patient's records today- 07/09/2021 indicates that the discharging hospitalist (Dr. Butler) did not write home health orders upon discharge. No further interventions required. Haily Jones Referral Liaison
[2021-07-09] MEDS ORDERED: FURO20 PO (19:16)
== END 2021-07-08 18:36 | disposition home or self-care (01) | DRG 177 ==
LOC: ER 21:02 → ICUW 22:48 → ERHOLD 22:48 → ICUW 06-18 02:46 → PCU 07-05 16:25 → MEDS 07-08 01:42 → ENPENDDIS 07-08 17:01 → MEDS 07-08 18:36
PROVIDERS: Family Medicine; Internal Medicine Critical Care Medicine; Student in an Organized Health Care Education/Training Program; ADMIT Internal Medicine
PROC: 5A09557 Assistance with Respiratory Ventilation, Greater than 96 Consecutive Hours, Continuous Positive Airway Pressure (ICD-10-PCS; principal; 2021-06-17)
DX: J10.01 Influenza due to other identified influenza virus with the same other identified influenza virus pneumonia (principal); J96.21 Acute and chronic respiratory failure with hypoxia; J15.211 Pneumonia due to Methicillin susceptible Staphylococcus aureus; J96.22 Acute and chronic respiratory failure with hypercapnia; G92.8 Other toxic encephalopathy; E43 Unspecified severe protein-calorie malnutrition; A41.9 Sepsis, unspecified organism; R64 Cachexia; E87.2 Acidosis; D61.818 Other pancytopenia; Z68.1 Body mass index [BMI] 19.9 or less, adult; Z66 Do not resuscitate; Z51.5 Encounter for palliative care; Z20.822 Contact with and (suspected) exposure to COVID-19; J43.9 Emphysema, unspecified; G47.33 Obstructive sleep apnea (adult) (pediatric); F32.A Depression, unspecified; G43.909 Migraine, unspecified, not intractable, without status migrainosus; F17.200 Nicotine dependence, unspecified, uncomplicated; Z71.6 Tobacco abuse counseling; F41.9 Anxiety disorder, unspecified; R00.0 Tachycardia, unspecified; D63.8 Anemia in other chronic diseases classified elsewhere; F15.10 Other stimulant abuse, uncomplicated; Z86.718 Personal history of other venous thrombosis and embolism; Z90.710 Acquired absence of both cervix and uterus; Z90.49 Acquired absence of other specified parts of digestive tract; Z90.722 Acquired absence of ovaries, bilateral; Z99.89 Dependence on other enabling machines and devices; Z88.0 Allergy status to penicillin; Z88.6 Allergy status to analgesic agent; Z88.7 Allergy status to serum and vaccine; Z79.52 Long term (current) use of systemic steroids; Z79.899 Other long term (current) drug therapy; Z78.1 Physical restraint status
CPT/HCPCS: 0241U; 31720; 36415; 36600; 51702; 71045; 80048; 80053; 80069; 80202; 81001; 82330; 82803; 83605; 83690; 83735; 83880; 84100; 84478; 84484; 85025; 85379; 87040; 87070; 87077; 87147; 87186; 87205; 92526; 92610; 93005; 93010; 93306; 94640; 94644; 94660; 94761; 94762; 96360-59; 97110; 97116; 97162; 97166; 97530; 97535; 99285-25; A9270; C1751; J0690; J1650; J1956; J2060; J2405; J2920; J2930; J3010; J3370; J7030; J7040; J7050; J7512; P9046

== ENCOUNTER 2021-07-09 16:07 | Emergency (ER) | payer OTHER ==
[~2021-07-09] VITALS: Ht 162.6 cm; Wt 49.9 kg
[~2021-07-09 16:07] MED LIST changes: +ALBU2.5V5 NEB; +ALBU90OI INH; +DILT30 PO; +FLUT1DIS5 INH; +Flonase 0.05% N16 GM; +HYDHCL25 PO; +MONT10T PO; +PROP60 PO; +Prednisone10 MG PO; +STIOLTO RESPIMAT4 G1 INH
[2021-07-09 17:00] LABS: BASOPHILS ABSOLUTE AUTO 0.02 K/mm3 (0.00-0.23); BASOPHILS PERCENT AUTO 0 % (0-2); EOSINOPHILS ABSOLUTE AUTO 0.03 K/mm3 (0.00-0.68); EOSINOPHILS PERCENT AUTO 0 % (0-6); Hematocrit 34.2 % (33.0-51.0); Hemoglobin 9.9 g/dL (11.5-16.0); IMMATURE GRAN ABSOLUTE AUTO 0.06 K/mm3 (0.00-0.10); IMMATURE GRAN PERCENT AUTO 1 % (0-1); LYMPHOCYTES PERCENT AUTO 6 % (21-46); MONOCYTES ABSOLUTE AUTO 0.29 K/mm3 (0.16-1.47); MONOCYTES PERCENT AUTO 3 % (4-13); Mean Corpuscular HGB 28.7 pg (26.0-34.0); Mean Corpuscular HGB Conc 28.9 g/dL (31.5-36.5); Mean Corpuscular Volume 99 fL (80-100); Mean Platelet Volume 10.5 fL (9.1-12.4); NEUTROPHILS ABSOLUTE AUTO 8.99 K/mm3 (1.96-9.15); NEUTROPHILS PERCENT AUTO 90 % (41-73); Platelet Count 270 K/mm3 (150-400); RDW Coefficient Variation 14.9 % (11.7-14.2); RDW Standard Deviation 53.5 fL (35.1-46.3); Red Blood Cell Count 3.45 M/mm3 (3.80-5.20); White Blood Cell Count 9.99 K/mm3 (4.00-11.30)
[2021-07-09 17:15] LABS: Alanine Aminotransfer (ALT/SGP 44 U/L (12-78); Albumin, Blood 3.2 g/dL (3.4-5.0); Alk Phos 86 U/L (50-136); Anion Gap 0 mmol/L (6-16); Aspartate Aminotrans (AST/SGOT 26 U/L (12-37); Bilirubin, Total 0.2 mg/dL (0.1-1.0); Blood Urea Nitrogen 20 mg/dL (8-24); Bun/Creatinine Ratio 55.2 (12.0-20.0); CO2, Blood 42 mmol/L (21-32); Calcium, Blood 8.5 mg/dL (8.5-10.1); Chloride, Blood 97 mmol/L (98-108); Creatinine, Blood 0.36 mg/dL (0.40-1.00); Globulin, Blood 3.1 g/dL (2.2-4.0); Glomerular Filtration Rate >60 (60-); Glucose, Blood 197 mg/dL (70-99); Potassium, Blood 4.4 mmol/L (3.5-5.5); Sodium, Blood 139 mmol/L (136-145); Total Protein, Blood 6.3 g/dL (6.4-8.2)
[2021-07-09 17:19] LABS: Base Excess Venous 19.4 mmol/L; Bicarbonate Venous 40.7 mmol/L (24.0-30.0); PCO2 Venous 76.3 mmHg (38-42); pH Blood Venous 7.38 (7.34-7.37)
[2021-07-09 18:05] LABS: Influenza A, PCR NEGATIVE (NEGATIVE); Influenza B, PCR NEGATIVE (NEGATIVE); Resp Syncytial Virus, PCR NEGATIVE (NEGATIVE); SARS-Cov-2 (COVID-19) PCR, MMC NEGATIVE (NEGATIVE)
[2021-07-09] MEDS ORDERED: FURO20 PO (19:16)
== END 2021-07-09 19:54 | disposition home or self-care (01) ==
LOC: ER 16:07
PROVIDERS: Physician Assistant
DX: R06.02 Shortness of breath (principal); J44.9 Chronic obstructive pulmonary disease, unspecified; F17.200 Nicotine dependence, unspecified, uncomplicated; G47.33 Obstructive sleep apnea (adult) (pediatric); Z86.69 Personal history of other diseases of the nervous system and sense organs; Z88.0 Allergy status to penicillin; Z79.899 Other long term (current) drug therapy; Z88.5 Allergy status to narcotic agent; Z20.822 Contact with and (suspected) exposure to COVID-19; Z88.7 Allergy status to serum and vaccine
CPT/HCPCS: 0241U; 71045; 80053; 82803; 84484; 85025; 93005; 93010; 99285-25; A9270

== ENCOUNTER 2021-07-12 10:57 | Emergency (ER) | payer OTHER ==
[~2021-07-12] VITALS: Ht 162.6 cm; Wt 81.7 kg
[~2021-07-12 10:57] MED LIST changes: +FURO20 PO
[2021-07-12 12:01] LABS: BASOPHILS ABSOLUTE AUTO 0.01 K/mm3 (0.00-0.23); BASOPHILS PERCENT AUTO 0 % (0-2); EOSINOPHILS ABSOLUTE AUTO 0.11 K/mm3 (0.00-0.68); EOSINOPHILS PERCENT AUTO 1 % (0-6); Hematocrit 37.6 % (33.0-51.0); Hemoglobin 10.3 g/dL (11.5-16.0); IMMATURE GRAN ABSOLUTE AUTO 0.04 K/mm3 (0.00-0.10); IMMATURE GRAN PERCENT AUTO 1 % (0-1); LYMPHOCYTES ABSOLUTE AUTO 2.16 K/mm3 (0.84-5.20); LYMPHOCYTES PERCENT AUTO 27 % (21-46); MONOCYTES ABSOLUTE AUTO 0.73 K/mm3 (0.16-1.47); MONOCYTES PERCENT AUTO 9 % (4-13); Mean Corpuscular HGB 28.1 pg (26.0-34.0); Mean Corpuscular HGB Conc 27.4 g/dL (31.5-36.5); Mean Corpuscular Volume 103 fL (80-100); Mean Platelet Volume 10.5 fL (9.1-12.4); NEUTROPHILS ABSOLUTE AUTO 5.11 K/mm3 (1.96-9.15); NEUTROPHILS PERCENT AUTO 63 % (41-73); Platelet Count 224 K/mm3 (150-400); RDW Coefficient Variation 15.3 % (11.7-14.2); RDW Standard Deviation 56.7 fL (35.1-46.3); Red Blood Cell Count 3.67 M/mm3 (3.80-5.20); White Blood Cell Count 8.16 K/mm3 (4.00-11.30)
[2021-07-12 12:22] LABS: Alanine Aminotransfer (ALT/SGP 33 U/L (12-78); Albumin/Globulin Ratio 0.9 (0.8-1.8); Alk Phos 79 U/L (50-136); Anion Gap 1 mmol/L (6-16); Aspartate Aminotrans (AST/SGOT 10 U/L (12-37); Bilirubin, Total 0.3 mg/dL (0.1-1.0); Blood Urea Nitrogen 17 mg/dL (8-24); Bun/Creatinine Ratio 46.7 (12.0-20.0); CO2, Blood 44 mmol/L (21-32); Calcium, Blood 8.5 mg/dL (8.5-10.1); Chloride, Blood 94 mmol/L (98-108); Creatinine, Blood 0.36 mg/dL (0.40-1.00); Globulin, Blood 3.3 g/dL (2.2-4.0); Glomerular Filtration Rate >60 (60-); Glucose, Blood 101 mg/dL (70-99); Potassium, Blood 4.3 mmol/L (3.5-5.5); Sodium, Blood 139 mmol/L (136-145); Total Protein, Blood 6.3 g/dL (6.4-8.2)
[2021-07-12] MEDS ORDERED: Prednisone20 MG PO (13:41)
[2021-07-12] MEDS ORDERED: Zithromax250 MG PO (14:02)
== END 2021-07-12 14:06 | disposition home or self-care (01) ==
LOC: ER 10:57
PROVIDERS: Physician Assistant
DX: J44.1 Chronic obstructive pulmonary disease with (acute) exacerbation (principal); F17.200 Nicotine dependence, unspecified, uncomplicated; G47.33 Obstructive sleep apnea (adult) (pediatric); D63.8 Anemia in other chronic diseases classified elsewhere; Z86.69 Personal history of other diseases of the nervous system and sense organs; Z79.899 Other long term (current) drug therapy; Z20.822 Contact with and (suspected) exposure to COVID-19; Z79.52 Long term (current) use of systemic steroids; Z88.0 Allergy status to penicillin; Z88.5 Allergy status to narcotic agent; Z88.8 Allergy status to other drugs, medicaments and biological substances
CPT/HCPCS: 36415; 71045; 80053; 85025; 93005; 93010; 94640; 99285-25; A9270; J7512

== ENCOUNTER 2021-09-07 12:53 | Inpatient (IN) | payer OTHER ==
[~2021-09-07] VITALS: Ht 162.6 cm; Wt 57.3 kg
[2021-09-07 13:37] LABS: BASOPHILS ABSOLUTE AUTO 0.03 K/mm3 (0.00-0.23); BASOPHILS PERCENT AUTO 1 % (0-2); EOSINOPHILS ABSOLUTE AUTO 0.18 K/mm3 (0.00-0.68); EOSINOPHILS PERCENT AUTO 3 % (0-6); Hematocrit 46.8 % (33.0-51.0); Hemoglobin 13.6 g/dL (11.5-16.0); IMMATURE GRAN ABSOLUTE AUTO 0.01 K/mm3 (0.00-0.10); IMMATURE GRAN PERCENT AUTO 0 % (0-1); LYMPHOCYTES ABSOLUTE AUTO 1.26 K/mm3 (0.84-5.20); LYMPHOCYTES PERCENT AUTO 19 % (21-46); MONOCYTES ABSOLUTE AUTO 0.55 K/mm3 (0.16-1.47); MONOCYTES PERCENT AUTO 9 % (4-13); Mean Corpuscular HGB 28.5 pg (26.0-34.0); Mean Corpuscular HGB Conc 29.1 g/dL (31.5-36.5); Mean Corpuscular Volume 98 fL (80-100); Mean Platelet Volume 12.1 fL (9.1-12.4); NEUTROPHILS ABSOLUTE AUTO 4.45 K/mm3 (1.96-9.15); NEUTROPHILS PERCENT AUTO 69 % (41-73); Platelet Count 131 K/mm3 (150-400); RDW Coefficient Variation 12.1 % (11.7-14.2); RDW Standard Deviation 44.1 fL (35.1-46.3); Red Blood Cell Count 4.77 M/mm3 (3.80-5.20); White Blood Cell Count 6.48 K/mm3 (4.00-11.30)
[2021-09-07 13:52] LABS: Alanine Aminotransfer (ALT/SGP 13 U/L (12-78); Albumin, Blood 3.1 g/dL (3.4-5.0); Albumin/Globulin Ratio 0.7 (0.8-1.8); Alk Phos 70 U/L (50-136); Aspartate Aminotrans (AST/SGOT 20 U/L (12-37); Bilirubin, Total 0.4 mg/dL (0.1-1.0); Blood Urea Nitrogen 11 mg/dL (8-24); Bun/Creatinine Ratio 33.8 (12.0-20.0); Calcium, Blood 9.8 mg/dL (8.5-10.1); Chloride, Blood 89 mmol/L (98-108); Creatinine, Blood 0.33 mg/dL (0.40-1.00); Globulin, Blood 4.4 g/dL (2.2-4.0); Glomerular Filtration Rate >60 (60-); Glucose, Blood 159 mg/dL (70-99); Potassium, Blood 4.9 mmol/L (3.5-5.5); Sodium, Blood 138 mmol/L (136-145); Total Protein, Blood 7.5 g/dL (6.4-8.2)
[2021-09-07 13:58] LABS: Anion Gap Unable to Calculate mmol/L (6-16); CO2, Blood >45 mmol/L (21-32)
[2021-09-07] MEDS ORDERED: PRED5 PO (16:22)
[2021-09-07 17:16] LABS: Base Excess Venous 29.4 mmol/L; Bicarbonate Venous 48.3 mmol/L (24.0-30.0); PCO2 Venous 94.8 mmHg (38-42); pH Blood Venous 7.37 (7.34-7.37)
--- NOTE | 2021-09-07 19:26 | NUR ---
TRANSFER UPDATE REPORT RECIEVED AT 1830 FROM ER NURSE. PT ARRIVED TO UNIT AT 1850 VIA [facility]. PT ON HFNC 7L UPON ARRIVAL. PT ABLE TO TRANSFER SELF FROM [facility] TO PCU BED. BED IN LOWEST POSITION, CALL LIGHT WITHIN REACH. WILL GIVE REPORT TO ONCOMING NURSE.
[2021-09-07 19:43] LABS: Adenovirus Not Detected (NOT DETECT); Bordetella pertussis Not Detected (NOT DETECT); Chlamydophila pneumoniae Not Detected (NOT DETECT); Coronavirus 229E Not Detected (NOT DETECT); Coronavirus HKU1 Not Detected (NOT DETECT); Coronavirus NL63 Not Detected (NOT DETECT); Coronavirus OC43 Not Detected (NOT DETECT); Human Metapneumovirus Not Detected (NOT DETECT); Human Rhinovirus/Enterovirus Not Detected (NOT DETECT); Influenza A/2009-H1 Not Detected (NOT DETECT); Influenza A/H1 Not Detected (NOT DETECT); Influenza A/H3 Not Detected (NOT DETECT); Influenza B Not Detected (NOT DETECT); Mycoplasma pneumoniae Not Detected (NOT DETECT); Parainfluenza Virus 1 Not Detected (NOT DETECT); Parainfluenza Virus 2 Not Detected (NOT DETECT); Parainfluenza Virus 3 Not Detected (NOT DETECT); Parainfluenza Virus 4 Not Detected (NOT DETECT); Respiratory Syncytial Virus Not Detected (NOT DETECT); SARS-Cov-2 (COVID-19), BioFire Not Detected (NOT DETECT)
--- NOTE | 2021-09-08 03:58 | NUR ---
SHIFT SUMMARY: PATIENT SINUS TACH, AFEBRILE, AND O2 SATS RANGING 70-80S. PATIENT'S HOME CPAP WAS DELIVERED FOR NIGHT AND THE MASK LEAKS. RT CONSULTED T/O NIGHT O2 SAT WOULD PLUMMET TO 60S. A&O X4, PLEASANT AND COOPERATIVE WITH CARE. PATIENT'S CBG WAS >300 AND NOW HAS INSULIN ORDERED. PATIENT DOES NOT USE INSULIN AT HOME AND SEEMED SURPRISED SHE HAS DIABETES. HER LAST A1C IN [facility] WAS FROM 2017. PATIENT DENIES CHEST PAIN, HAS HAD SOME SOB AND NAUSEA WHICH WAS TREATED PER EMAR. PATIENT IS ANXIOUS WHEN AWAKE BUT HAS SLEPT WELL T/O THE NIGHT. AT TIME OF THIS NOTE ADMISSION HX AND MED RECONCILIATION HAS NOT BEEN COMPLETED. WILL CONTINUE TO MONITOR AND REPORT TO ONCOMING RN.
[2021-09-08 04:26] LABS: Blood Urea Nitrogen 13 mg/dL (8-24); Bun/Creatinine Ratio 31.5 (12.0-20.0); Calcium, Blood 9.4 mg/dL (8.5-10.1); Chloride, Blood 93 mmol/L (98-108); Creatinine, Blood 0.41 mg/dL (0.40-1.00); Glomerular Filtration Rate >60 (60-); Glucose, Blood 142 mg/dL (70-99); Potassium, Blood 4.8 mmol/L (3.5-5.5); Sodium, Blood 140 mmol/L (136-145)
[2021-09-08 04:30] LABS: Anion Gap Unable to Calculate mmol/L (6-16)
[2021-09-08 04:31] LABS: CO2, Blood >45 mmol/L (21-32)
[2021-09-08 14:55] LABS: U Amphetamine Screen Not Detected; U Barbituate Screen Not Detected; U Benzodiazapine Screen Not Detected; U Buprenorphine Screen Not Detected; U Cannabinoids Screen DETECTED; U Cocaine Screen Not Detected; U Methadone Screen Not Detected; U Methamphetamine Screen Not Detected; U Opiates Screen Not Detected; U Oxycodone Screen Not Detected; U Phencyclidine Screen Not Detected; U Propoxyphene Screen Not Detected
--- NOTE | 2021-09-08 18:02 | NUR ---
SHIFT SUMMARY PT REMAINS ALERT AND ORIENTED. PT SLEPT ON AND OFF THROUGHOUT SHIFT. VS STABLE. O2 SATS REMAIN ABOVE 90% ON 6L VIA OXYMIZER AT THIS TIME. PT ON HOME TRILOGY MOST OF SHIFT WITH 6L BLEED IN. HR SINUS TACH. PT DENIES ANY PAIN. PT ABLE TO STAND AND TRANSFER TO BSC NEEDED TO VOID. PT DENIES ANY PAIN. PT REPOSITIONING HERSELF IN BED. WILL CONTINUE TO MONITOR AND REPORT TO ONCOMING RN
[2021-09-09 04:28] LABS: Hemoglobin 11.2 g/dL (11.5-16.0); Mean Corpuscular HGB 28.3 pg (26.0-34.0); Mean Corpuscular HGB Conc 29.5 g/dL (31.5-36.5); Mean Corpuscular Volume 96 fL (80-100); Mean Platelet Volume 11.6 fL (9.1-12.4); Platelet Count 113 K/mm3 (150-400); RDW Coefficient Variation 12.4 % (11.7-14.2); RDW Standard Deviation 44.3 fL (35.1-46.3); Red Blood Cell Count 3.96 M/mm3 (3.80-5.20); White Blood Cell Count 9.97 K/mm3 (4.00-11.30)
--- NOTE | 2021-09-09 04:44 | NUR ---
SHIFT SUMMARY: PATIENT CONTINUES TO HAVE MOMENTARY DESATS TO THE 70S. WORE TRILOGY UNIT T/O NIGHT AND WAS RESTLESS. HR SINUS TACH, O2 82-94% ON 6-9L, AND AFEBRILE. DENIES NAUSEA AND CHEST PAIN. DESCRIBED FEELING OF SUFFOCATION AFTER DESAT EPISODE ~0200 THAT RESOLVED WITH DEEP BREATHING AND REPOSITIONING. PATIENT AMBULATED TO BEDSIDE COMMODE. CALLS APPROPRIATELY. WILL CONTINUE TO MONITOR AND REPORT TO ONCOMING RN.
[2021-09-09 04:49] LABS: Blood Urea Nitrogen 28 mg/dL (8-24); Calcium, Blood 9.3 mg/dL (8.5-10.1); Chloride, Blood 93 mmol/L (98-108); Creatinine, Blood 0.48 mg/dL (0.40-1.00); Glomerular Filtration Rate >60 (60-); Glucose, Blood 112 mg/dL (70-99); Potassium, Blood 4.8 mmol/L (3.5-5.5); Sodium, Blood 139 mmol/L (136-145)
[2021-09-09 04:56] LABS: Anion Gap Unable to Calculate mmol/L (6-16)
[2021-09-09 04:57] LABS: CO2, Blood >45 mmol/L (21-32)
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
[2021-09-10] MEDS ORDERED: PRED20 PO (08:44)
--- NOTE | 2021-09-10 10:48 | NUR ---
DISCHARGE: PATIENT ALERT AND ORIENTED X4. NEURO WNL. DENIES PAIN. ABLE TO STAND AND TRANSFER IND. TELE SHOWING SINUS RHYTHM. DENIES CHEST PAIN/PRESSURE. VITAL SIGNS STABLE. ON 5-7L O2 HIGH FLOW NASAL CANNULA. 5L WHEN RESTING AND UP TO 7L WHEN UP. HOME BIPAP AT BEDSIDE THIS AM, SPOUSE IN TO TAKE HOME. DENIES ABDOMINAL PAIN/NAUSEA. TOLERATING PO DIET. DISCHARGE TODAY, INSTRUCTIONS REVIEWED. NEW PREDNISONE TAPER SCHEDULE DISCUSSED, THEN RESUMING HOME DOSE AFTER TAPER. PATIENT ABLE TO VERBALIZE AND TEACH BACK. [employer] SUPPLY IN TO DROP OF OXYGEN TANKS. PATIENT LEFT UNIT VIA WHEELCHAIR WITH OXYGEN AND ALL PERSONAL BELONGINGS. IV TAKEN OUT PER PROTOCOL WNL.
== END 2021-09-10 10:25 | disposition home or self-care (01) | DRG 193 ==
LOC: ER 12:53 → PCU 17:36
PROVIDERS: Internal Medicine; Physician Assistant; ADMIT Internal Medicine
DX: J18.9 Pneumonia, unspecified organism (principal); J96.21 Acute and chronic respiratory failure with hypoxia; J96.22 Acute and chronic respiratory failure with hypercapnia; J44.1 Chronic obstructive pulmonary disease with (acute) exacerbation; J44.0 Chronic obstructive pulmonary disease with (acute) lower respiratory infection; G47.33 Obstructive sleep apnea (adult) (pediatric); F31.9 Bipolar disorder, unspecified; F32.A Depression, unspecified; G43.909 Migraine, unspecified, not intractable, without status migrainosus; Z86.718 Personal history of other venous thrombosis and embolism; Z90.710 Acquired absence of both cervix and uterus; Z98.890 Other specified postprocedural states; Z90.49 Acquired absence of other specified parts of digestive tract; F17.210 Nicotine dependence, cigarettes, uncomplicated; Z88.0 Allergy status to penicillin; Z88.8 Allergy status to other drugs, medicaments and biological substances; Z79.899 Other long term (current) drug therapy; Z20.822 Contact with and (suspected) exposure to COVID-19
CPT/HCPCS: 0202U; 36415; 71046; 80048; 80053; 82803; 82947; 83880; 84145; 84484; 85025; 85027; 93005; 93010; 94640; 94660; 94664; 94760; 94762; 96365; 96375; 99285-25; A9270; J1650; J1815; J1956; J2405; J2930; J7030

== ENCOUNTER 2021-09-15 23:22 | Inpatient (IN) | payer OTHER ==
[~2021-09-15] VITALS: Ht 157.5 cm; Wt 50.5 kg
[~2021-09-15 23:22] MED LIST changes: +PRED5 PO
[2021-09-15 23:37] LABS: Bicarbonate Venous 48.9 mmol/L (24.0-30.0); PO2 Venous 71.6 mmHg (38-42); pH Blood Venous 7.29 (7.34-7.37)
[2021-09-15 23:38] LABS: Base Excess Venous 30.2 mmol/L; PCO2 Venous > 105 mmHg (38-42)
[2021-09-15 23:40] LABS: BASOPHILS ABSOLUTE AUTO 0.02 K/mm3 (0.00-0.23); BASOPHILS PERCENT AUTO 0 % (0-2); EOSINOPHILS PERCENT AUTO 1 % (0-6); Hemoglobin 13.1 g/dL (11.5-16.0); IMMATURE GRAN ABSOLUTE AUTO 0.04 K/mm3 (0.00-0.10); IMMATURE GRAN PERCENT AUTO 0 % (0-1); LYMPHOCYTES ABSOLUTE AUTO 1.63 K/mm3 (0.84-5.20); LYMPHOCYTES PERCENT AUTO 12 % (21-46); MONOCYTES ABSOLUTE AUTO 1.11 K/mm3 (0.16-1.47); MONOCYTES PERCENT AUTO 8 % (4-13); Mean Corpuscular HGB 28.4 pg (26.0-34.0); Mean Corpuscular HGB Conc 28.5 g/dL (31.5-36.5); Mean Corpuscular Volume 100 fL (80-100); Mean Platelet Volume 10.6 fL (9.1-12.4); NEUTROPHILS ABSOLUTE AUTO 10.63 K/mm3 (1.96-9.15); NEUTROPHILS PERCENT AUTO 79 % (41-73); Platelet Count 132 K/mm3 (150-400); RDW Coefficient Variation 11.9 % (11.7-14.2); RDW Standard Deviation 44.6 fL (35.1-46.3); Red Blood Cell Count 4.61 M/mm3 (3.80-5.20); White Blood Cell Count 13.53 K/mm3 (4.00-11.30)
[2021-09-16 00:01] LABS: Alanine Aminotransfer (ALT/SGP 20 U/L (12-78); Albumin, Blood 3.2 g/dL (3.4-5.0); Alk Phos 77 U/L (50-136); Aspartate Aminotrans (AST/SGOT 9 U/L (12-37); Bilirubin, Total 0.2 mg/dL (0.1-1.0); Blood Urea Nitrogen 16 mg/dL (8-24); Bun/Creatinine Ratio 45.8 (12.0-20.0); Calcium, Blood 8.7 mg/dL (8.5-10.1); Chloride, Blood 89 mmol/L (98-108); Creatinine, Blood 0.35 mg/dL (0.40-1.00); Globulin, Blood 3.2 g/dL (2.2-4.0); Glomerular Filtration Rate >60 (60-); Glucose, Blood 137 mg/dL (70-99); Potassium, Blood 3.9 mmol/L (3.5-5.5); Sodium, Blood 142 mmol/L (136-145); Total Protein, Blood 6.4 g/dL (6.4-8.2)
[2021-09-16 00:02] LABS: Anion Gap Unable to Calculate mmol/L (6-16); CO2, Blood >45 mmol/L (21-32)
[2021-09-16 00:35] LABS: Influenza A, PCR NEGATIVE (NEGATIVE); Influenza B, PCR NEGATIVE (NEGATIVE); Resp Syncytial Virus, PCR NEGATIVE (NEGATIVE); SARS-Cov-2 (COVID-19) PCR, MMC NEGATIVE (NEGATIVE)
--- NOTE | 2021-09-16 02:43 | NUR ---
Admit 0150 Recieved pt from our ED [facility] in PCU4, VSS, no pain or SOB, she is on BiPaP with 10L /12, pt is very drowsy but oriented x4, she would like to defer anymore admit questions until the am, and when her O2 demand has improved. Will monitor SHAVONNE Wagner
[2021-09-16 03:24] LABS: Base Excess Venous 31.5 mmol/L; Bicarbonate Venous 50.6 mmol/L (24.0-30.0); PCO2 Venous 92.4 mmHg (38-42); PO2 Venous 32.3 mmHg (38-42); pH Blood Venous 7.39 (7.34-7.37)
[2021-09-16 03:59] LABS: Hematocrit 44.5 % (33.0-51.0); Hemoglobin 12.5 g/dL (11.5-16.0); Mean Corpuscular HGB 28.2 pg (26.0-34.0); Mean Corpuscular HGB Conc 28.1 g/dL (31.5-36.5); Mean Corpuscular Volume 100 fL (80-100); Mean Platelet Volume 11.3 fL (9.1-12.4); Platelet Count 148 K/mm3 (150-400); RDW Coefficient Variation 11.9 % (11.7-14.2); RDW Standard Deviation 44.3 fL (35.1-46.3); Red Blood Cell Count 4.44 M/mm3 (3.80-5.20); White Blood Cell Count 14.42 K/mm3 (4.00-11.30)
[2021-09-16 04:13] LABS: Blood Urea Nitrogen 16 mg/dL (8-24); Bun/Creatinine Ratio 38.6 (12.0-20.0); Calcium, Blood 8.8 mg/dL (8.5-10.1); Chloride, Blood 89 mmol/L (98-108); Creatinine, Blood 0.41 mg/dL (0.40-1.00); Glomerular Filtration Rate >60 (60-); Glucose, Blood 141 mg/dL (70-99); Potassium, Blood 4.4 mmol/L (3.5-5.5); Sodium, Blood 139 mmol/L (136-145)
[2021-09-16 04:19] LABS: BAND PERCENT MAN 10 % (0-8); BASOPHILS PERCENT MAN 0 % (0-2); EOSINOPHILS PERCENT MAN 0 % (0-6); LYMPHOCYTES ABSOLUTE MAN 0.28 K/mm3 (0.84-5.20); LYMPHOCYTES PERCENT MAN 2 % (21-46); MONOCYTES ABSOLUTE MAN 0.28 K/mm3 (0.16-1.47); MONOCYTES PERCENT MAN 2 % (4-13); NEUTROPHILS ABSOLUTE MAN 13.84 K/mm3 (1.96-9.15); SEG NEUTROPHILS PERCENT MAN 86 % (41-73); TOTAL CELLS COUNTED 100
[2021-09-16 05:16] LABS: Anion Gap Unable to Calculate mmol/L (6-16); CO2, Blood >45 mmol/L (21-32)
--- NOTE | 2021-09-16 05:41 | NUR ---
Shift summary Overnoc without issues, pt has been on our unit since 020, drowsy but oriented, on BiPaP with same settings prior, VBG trending in right direction, VSS, will continue to monitor SHAVONNE Wagner
[2021-09-16] MEDS ORDERED: DILT30 (14:03)
--- NOTE | 2021-09-16 17:21 | NUR ---
PT SUMMARY: PT WORE BIPAP MOST OF THE SHIFT WITH 6-8L O2 BLEED, AFTER LUNCH TIME FAMILY WAS ABLE TO BRING PT'S HOME TRILOGY RT WAS ABLE TO SET MACHINE AND PT WAS ABLE TO USE, CURRENTLY NOW ON 7L OF O2 BLEED. PT STILL DESATS TO HIGH 70'S WITH EXERTION MOSTLY WHEN EATING EVEN ON 8-10L OF O2 VIA NASAL CANNULA. OTHERWISE PT DENIES ANY KIND OF PAIN AND DISCOMFORT PT ABLE TO REPOSITION SELF IN BED, SBA FOR TRANSFERS USES BEDSIDE COMMODE FOR TOILETING. VITALS HRR 100-120S TACHS UP TO 120'S WITH EXERTION, BP SYSTOLIC 115'S, AFEBRILE. DIET RESUMED PT ABLE TO TOLERATE. NO OTHER ISSUES REPORTED FOR THE SHIFT, ABLE TO MAKE NEEDS KNOWN, CALL LIGHTS WITHIN REACH WILL REPORT TO ONCOMING SHIFT
[2021-09-17 05:58] LABS: BASOPHILS PERCENT AUTO 0 % (0-2); EOSINOPHILS PERCENT AUTO 0 % (0-6); Hematocrit 37.8 % (33.0-51.0); Hemoglobin 11.3 g/dL (11.5-16.0); IMMATURE GRAN ABSOLUTE AUTO 0.03 K/mm3 (0.00-0.10); IMMATURE GRAN PERCENT AUTO 1 % (0-1); LYMPHOCYTES ABSOLUTE AUTO 0.51 K/mm3 (0.84-5.20); LYMPHOCYTES PERCENT AUTO 9 % (21-46); MONOCYTES ABSOLUTE AUTO 0.08 K/mm3 (0.16-1.47); MONOCYTES PERCENT AUTO 1 % (4-13); Mean Corpuscular HGB Conc 29.9 g/dL (31.5-36.5); Mean Platelet Volume 11.6 fL (9.1-12.4); NEUTROPHILS PERCENT AUTO 89 % (41-73); Platelet Count 144 K/mm3 (150-400); RDW Coefficient Variation 12.4 % (11.7-14.2); RDW Standard Deviation 43.1 fL (35.1-46.3); Red Blood Cell Count 4.04 M/mm3 (3.80-5.20); White Blood Cell Count 5.52 K/mm3 (4.00-11.30)
[2021-09-17 05:59] LABS: Mean Corpuscular Volume 94 fL (80-100)
[2021-09-17 06:12] LABS: Anion Gap 6 mmol/L (6-16); Blood Urea Nitrogen 18 mg/dL (8-24); Bun/Creatinine Ratio 45.1 (12.0-20.0); CO2, Blood 39 mmol/L (21-32); Calcium, Blood 8.4 mg/dL (8.5-10.1); Chloride, Blood 92 mmol/L (98-108); Glomerular Filtration Rate >60 (60-); Glucose, Blood 291 mg/dL (70-99); Potassium, Blood 3.7 mmol/L (3.5-5.5); Sodium, Blood 137 mmol/L (136-145)
--- NOTE | 2021-09-17 11:41 | NUR ---
Patient is lying in bed and alert. Patient tells me about her medical issues, her improvement since her stay in the hospital and her plan to d/c soon. Pt says that she has some family support and a strong Restoration beliefs. I provide therapeutic listening, gentle psychotherapist counselor and prayer. Patient responds well and shows signs of an elevated mood. I will continue to remain available to patient and family.
--- NOTE | 2021-09-17 13:50 | NUR ---
PT DISCHARGE TO HOME TODAY WITH DISCHARGE ORDERS, HOME O2 EVAL DONE PT BACK ON HOME O2 7-8L SATS ABOVE 88%. VITALS HAS BEEN STABLE. PT HAD A SHOWER TODAY, TOLERATED. AMBULATORY. DISCHARGE MEDICATIONS AND INSTRUCTIONS DISCLOSED WITH THE PT, PRESCRIPTIONS SENT TO [facility], PT VERBALIZED UNDERSTANDING. NO OTHER ISSUES ENCOUNTERED PRIOR TO DISCHARGE. ALL BELONGINGS SENT WITH THE PT, HOME MEDS AND TRILOGY. ACCOMPANIED VIA WHEELCHAIR FOR TRANSPORT, BROTHER PROVIDED TRANSPORTATION.
== END 2021-09-17 13:49 | disposition home or self-care (01) | DRG 189 ==
LOC: ER 23:22 → PCU 23:23
PROVIDERS: Emergency Medicine; Family Medicine; ADMIT Family Medicine
PROC: 5A09357 Assistance with Respiratory Ventilation, Less than 24 Consecutive Hours, Continuous Positive Airway Pressure (ICD-10-PCS; principal; 2021-09-16)
DX: J96.21 Acute and chronic respiratory failure with hypoxia (principal); J96.22 Acute and chronic respiratory failure with hypercapnia; Z20.822 Contact with and (suspected) exposure to COVID-19; Z66 Do not resuscitate; J43.9 Emphysema, unspecified; D72.828 Other elevated white blood cell count; T38.0X5A Adverse effect of glucocorticoids and synthetic analogues, initial encounter; D69.6 Thrombocytopenia, unspecified; G43.909 Migraine, unspecified, not intractable, without status migrainosus; G47.33 Obstructive sleep apnea (adult) (pediatric); F32.A Depression, unspecified; Z99.81 Dependence on supplemental oxygen; Z86.718 Personal history of other venous thrombosis and embolism; Z90.49 Acquired absence of other specified parts of digestive tract; Z90.710 Acquired absence of both cervix and uterus; Z90.722 Acquired absence of ovaries, bilateral; Z88.0 Allergy status to penicillin; Z88.7 Allergy status to serum and vaccine; Z88.6 Allergy status to analgesic agent; Z79.899 Other long term (current) drug therapy
CPT/HCPCS: 0241U; 36415; 71045; 80048; 80053; 82803; 82947; 83880; 84145; 84484; 85025; 93005; 93010; 94640; 94644; 94660; 94664; 94760; 94762; 96372; 96374; 96375; 96376; 99285-25; A9270; C1751; G0378; J0456; J1650; J2930; J7050

== ENCOUNTER 2022-03-02 15:06 | Inpatient (IN) | payer OTHER ==
[~2022-03-02] VITALS: Ht 162.6 cm; Wt 49.4 kg
[~2022-03-02 15:06] MED LIST changes: +VISBIOME 112.51 EACH PO
[2022-03-02 16:26] LABS: Alanine Aminotransfer (ALT/SGP 16 U/L (12-78); Albumin, Blood 3.6 g/dL (3.4-5.0); Alk Phos 75 U/L (50-136); Aspartate Aminotrans (AST/SGOT 14 U/L (12-37); Bilirubin, Total 0.4 mg/dL (0.1-1.0); Blood Urea Nitrogen 15 mg/dL (8-24); Bun/Creatinine Ratio 35.5 (12.0-20.0); Calcium, Blood 9.5 mg/dL (8.5-10.1); Chloride, Blood 90 mmol/L (98-108); Creatinine, Blood 0.42 mg/dL (0.40-1.00); Globulin, Blood 3.6 g/dL (2.2-4.0); Glomerular Filtration Rate 121 (60-); Glucose, Blood 154 mg/dL (70-99); Potassium, Blood 4.3 mmol/L (3.5-5.5); Sodium, Blood 136 mmol/L (136-145); Total Protein, Blood 7.2 g/dL (6.4-8.2)
[2022-03-02 16:34] LABS: Anion Gap Unable to Calculate mmol/L (6-16)
[2022-03-02 16:37] LABS: CO2, Blood >45 mmol/L (21-32)
[2022-03-02 17:22] LABS: BASOPHILS ABSOLUTE AUTO 0.02 K/mm3 (0.00-0.23); BASOPHILS PERCENT AUTO 0 % (0-2); EOSINOPHILS ABSOLUTE AUTO 0.08 K/mm3 (0.00-0.68); EOSINOPHILS PERCENT AUTO 1 % (0-6); Hematocrit 43.2 % (33.0-51.0); IMMATURE GRAN ABSOLUTE AUTO 0.03 K/mm3 (0.00-0.10); IMMATURE GRAN PERCENT AUTO 0 % (0-1); LYMPHOCYTES PERCENT AUTO 16 % (21-46); MONOCYTES PERCENT AUTO 8 % (4-13); Mean Corpuscular HGB 27.6 pg (26.0-34.0); Mean Corpuscular HGB Conc 27.8 g/dL (31.5-36.5); Mean Corpuscular Volume 99 fL (80-100); NEUTROPHILS ABSOLUTE AUTO 5.37 K/mm3 (1.96-9.15); NEUTROPHILS PERCENT AUTO 74 % (41-73); Platelet Count 155 K/mm3 (150-400); RDW Coefficient Variation 12.2 % (11.7-14.2); RDW Standard Deviation 44.4 fL (35.1-46.3); Red Blood Cell Count 4.35 M/mm3 (3.80-5.20)
[2022-03-02 17:34] LABS: PO2 Arterial 64.1 mmHg (80-100); pH Blood Arterial 7.27 (7.35-7.45)
[2022-03-02 17:35] LABS: PCO2 Arterial > 105 mmHg (35-45)
[2022-03-02 19:58] LABS: Influenza A, PCR NEGATIVE (NEGATIVE); Influenza B, PCR NEGATIVE (NEGATIVE); Resp Syncytial Virus, PCR NEGATIVE (NEGATIVE); SARS-Cov-2 (COVID-19) PCR, MMC NEGATIVE (NEGATIVE)
[2022-03-02 23:26] LABS: Base Excess Venous 25.7 mmol/L; Bicarbonate Venous 45.2 mmol/L (24.0-30.0); PCO2 Venous 93.5 mmHg (38-42); pH Blood Venous 7.35 (7.34-7.37)
[2022-03-03 05:44] LABS: Blood Urea Nitrogen 15 mg/dL (8-24); Bun/Creatinine Ratio 40.4 (12.0-20.0); Calcium, Blood 9.2 mg/dL (8.5-10.1); Chloride, Blood 92 mmol/L (98-108); Creatinine, Blood 0.37 mg/dL (0.40-1.00); Glomerular Filtration Rate 124 (60-); Glucose, Blood 169 mg/dL (70-99); Potassium, Blood 4.3 mmol/L (3.5-5.5); Sodium, Blood 140 mmol/L (136-145)
[2022-03-03 05:45] LABS: Anion Gap Unable to Calculate mmol/L (6-16); CO2, Blood >45 mmol/L (21-32)
--- NOTE | 2022-03-03 06:22 | NUR ---
SHIFT SUMMARY RECEIVED PT AROUND 2039. PT IS LETHARGIC BUT CAN WAKE UP TO ASK TO USE BED CALDERA. PT HAS SOME TROUBLE STATING WORDS AND WILL FALL ASLEEP WHILE TALKING. HEART SOUNDS TACHY. HR WAS 120S, HOSPITALIST RESIDENT NOTIFIED AND SAID TO HOLD OFF ON MEDICATIONS BECAUSE THE BIPAP IS MAKING PT HR ELEVATED. LUNG SOUNDS HAVE WHEEZING T/O. BIPAP 18/9 @ 50%. PT SLEPT T/O THE NIGHT UNTIL 0550 WHEN SHE AWAKE AND ASKED TO HAVE A BREAK OFF THE BIPAP. PT IS NOW ON 9L NC WITH SATURATIONS 95% AND ABOVE.
[2022-03-03 10:33] LABS: U Amphetamine Screen DETECTED; U Cannabinoids Screen DETECTED; U Methamphetamine Screen DETECTED
[2022-03-03 10:34] LABS: U Barbituate Screen Not Detected; U Benzodiazapine Screen Not Detected; U Buprenorphine Screen Not Detected; U Cocaine Screen Not Detected; U Methadone Screen Not Detected; U Opiates Screen Not Detected; U Oxycodone Screen Not Detected; U Phencyclidine Screen Not Detected; U Propoxyphene Screen Not Detected
--- NOTE | 2022-03-03 18:20 | NUR ---
SHIFT SUMMARY ASSUMED CARE OF PT AT 0700. ALERT AND ORIENTED X3 WHEN AVAILABLE TO COMMUNICATE. SHORT BREAKS FROM BIPAP WITH NC AT 5L AND SATTING 88 TO 92%. ASSISTED TO BSC WITHOUT DIFFICULTY. PT HAS BEEN SINUS TACH >110 BUT <150. REPORTED FEELING ANXIOUS SO GIVEN ONE TIME DOSE OF 0.5 MG ATIVAN IV WITH IMPROVEMENT. PT SLEPT AFTER THIS. WOKEN UP FOR DINNER AND PT ABLE TO EAT INDEPENDENTLY. SHE REQUESTED TO BE BACK ON BIPAP AND CURRENTLY ON 24/02 AT 45% WITHOUT DISTRESS. HR IMPROVING TO 100S WITH ORAL CARDIZEM. NO ACUTE DISTRESS AT THIS TIME.
[2022-03-04 04:29] LABS: BASOPHILS ABSOLUTE AUTO 0.01 K/mm3 (0.00-0.23); BASOPHILS PERCENT AUTO 0 % (0-2); EOSINOPHILS PERCENT AUTO 0 % (0-6); Hematocrit 40.9 % (33.0-51.0); Hemoglobin 11.9 g/dL (11.5-16.0); IMMATURE GRAN ABSOLUTE AUTO 0.05 K/mm3 (0.00-0.10); IMMATURE GRAN PERCENT AUTO 1 % (0-1); LYMPHOCYTES ABSOLUTE AUTO 0.52 K/mm3 (0.84-5.20); LYMPHOCYTES PERCENT AUTO 5 % (21-46); MONOCYTES ABSOLUTE AUTO 0.14 K/mm3 (0.16-1.47); MONOCYTES PERCENT AUTO 1 % (4-13); Mean Corpuscular HGB 27.4 pg (26.0-34.0); Mean Corpuscular HGB Conc 29.1 g/dL (31.5-36.5); Mean Platelet Volume 11.9 fL (9.1-12.4); NEUTROPHILS ABSOLUTE AUTO 9.78 K/mm3 (1.96-9.15); NEUTROPHILS PERCENT AUTO 93 % (41-73); Platelet Count 166 K/mm3 (150-400); RDW Coefficient Variation 12.4 % (11.7-14.2); RDW Standard Deviation 43.1 fL (35.1-46.3); Red Blood Cell Count 4.35 M/mm3 (3.80-5.20)
[2022-03-04 04:44] LABS: Bun/Creatinine Ratio 62.7 (12.0-20.0); Creatinine, Blood 0.38 mg/dL (0.40-1.00); Mean Corpuscular Volume 94 fL (80-100)
--- NOTE | 2022-03-04 07:14 | NUR ---
SHIFT SUMMARY PT ANXIOUS AT START OF SHIFT, APPEARS DROWSY. SLEEPS THROUGH MOST OF SHIFT. DENIES CP, HR 100'S-110'S THROUGH MOST SHIFT, 120'S AT START OF SHIFT. EKG PERFORMED D/T CONCERN FOR ST ELEVATION. DR CAMPOS VIEWS EKG, REPEAT TROP ORDERED. PT TACHYPNEIC DURING SHIFT RR 20-22, SWITCHED TO HOME TRILOGY MACHINE BY RT. SATS 90-94% ON HOME TRILOGY AT 8-10 L 02. PT C/O HEADACHE THIS AM, STATES SHE GETS MIGRAINES, ORDER OBTAINED FOR TYLENOL AND MOTRIN.
--- NOTE | 2022-03-04 18:21 | NUR ---
SHIFT SUMMARY PT HAS BEEN USING HER HOME TRILOGY THROUGHOUT THE SHIFT WITH SATURATIONS REMAINING ABOVE 88%. SHE HAS BEEN RESTING ON 5L BY CO WHEN NOT ON THE TRILOGY. SHE DID HAVE SOME DESATURATION INTO THE 60S WHILE EATING LUNCH BECAUSE SHE FORGOT TO PUT HER CANNULA ON WHILE EATING. RECOVERED WHEN PUT ON 9L BY CO. SHE BEGAN CHOKING ON SOME MILK DURING DINNER DUE TO EATING TOO FAST AND WAS ENCOURAGED TO TAKE BREAKS BETWEEN BITES AND DRINKS. PT APPEARS LESS ANXIOUS TODAY. SHE IS ALERT AND ORIENTED X4, COOPERATIVE, AND EXCITED TO GO HOME. PT HAS BEEN SBA TO [facility] AND AMBULATING WITHOUT DIFFICULTY OR ASSISTANCE.
[2022-03-05 05:15] LABS: Albumin/Globulin Ratio 0.9 (0.8-1.8); Bilirubin, Total 0.4 mg/dL (0.1-1.0); Bun/Creatinine Ratio 55.3 (12.0-20.0); Creatinine, Blood 0.43 mg/dL (0.40-1.00); Globulin, Blood 3.2 g/dL (2.2-4.0); Potassium, Blood 4.9 mmol/L (3.5-5.5); Total Protein, Blood 6.2 g/dL (6.4-8.2)
--- NOTE | 2022-03-05 07:26 | NUR ---
SHIFT SUMMARY PT SLEPT THROUGH MOST OF NIGHT, AOX4. STAYED ON TRILOGY T/O SHIFT WITH 5-6 L IN. UP TO BEDSIDE COMMODE ON TRILOGY W/SBA W/O DIFFICULTY. SOME DYSPNEA WITH EXERTION. SATS MAINTAINED 90-92%. C/O ANXIETY AT START OF SHIFT, PO HALDOL SEEMED TO HELP AND ALLOW PT TO SLEEP RESTFULLY THROUGH NIGHT.
[2022-03-05 08:24] LABS: BASOPHILS ABSOLUTE AUTO 0.01 K/mm3 (0.00-0.23); BASOPHILS PERCENT AUTO 0 % (0-2); EOSINOPHILS PERCENT AUTO 0 % (0-6); Hematocrit 40.1 % (33.0-51.0); Hemoglobin 11.9 g/dL (11.5-16.0); IMMATURE GRAN ABSOLUTE AUTO 0.03 K/mm3 (0.00-0.10); IMMATURE GRAN PERCENT AUTO 0 % (0-1); LYMPHOCYTES ABSOLUTE AUTO 0.64 K/mm3 (0.84-5.20); LYMPHOCYTES PERCENT AUTO 6 % (21-46); MONOCYTES ABSOLUTE AUTO 0.17 K/mm3 (0.16-1.47); MONOCYTES PERCENT AUTO 2 % (4-13); Mean Corpuscular HGB 27.8 pg (26.0-34.0); Mean Corpuscular HGB Conc 29.7 g/dL (31.5-36.5); Mean Corpuscular Volume 94 fL (80-100); NEUTROPHILS ABSOLUTE AUTO 9.57 K/mm3 (1.96-9.15); NEUTROPHILS PERCENT AUTO 92 % (41-73); Platelet Count 198 K/mm3 (150-400); RDW Coefficient Variation 12.9 % (11.7-14.2); RDW Standard Deviation 44.7 fL (35.1-46.3); Red Blood Cell Count 4.28 M/mm3 (3.80-5.20); White Blood Cell Count 10.42 K/mm3 (4.00-11.30)
--- NOTE | 2022-03-05 09:44 | NUR ---
ASSUMPTION OF CARE THIS RN ASSUMED CARE OF PATIENT AT 0700. REPORT TAKEN FROM SOFIA MARVIN. PATIENT WITH STABLE VITALS. CONTINUED ST; PO CARDIZEM GIVEN THIS AM. DENIES ANXIETY AT THIS TIME. DENIES SOB; ON 6L NC WITH O2 SATS >94%. PATIENT CALLS APPRORIATELY FOR HELP FROM STAFF. CALM AND COOPERATIVE WITH CARE AND ANSWERS QUESTIONS APPROPRIATELY. BED IN LOWEST POSITION WITH CALL LIGHT WITHIN REACH.
--- NOTE | 2022-03-05 12:54 | NUR ---
DISCHARGE NOTE PATIENT WITH STABLE VITALS. DENIES PAIN. NO SIGNS/SYMPTOMS OF DISTRESS. RESPIRATION RATE <20. PATIENT GOING HOME WITH TRILOGY BIPAP MACHINE THAT SHE BROUGHT WITH HER FOR HER HOSPITALIZATION. NO NEW MEDICATIONS FOR PATIENT BUT FREQUENCY/DOSE CHANGES. MEDICATION INFORMATION GIVEN TO PATIENT. PATIENT VERBALIZED UNDERSTANDING. PATIENT VERBALIZED UNDERSTANDING OF HOW TO MANAGE O2 AT HOME, AND HAS KNOWLEDGE OF TRILOGY AND USING O2 TANKS NEEDED. PATIENT VERBALIZED BEING AT HER BASELINE STRENGTH PRIOR TO HOSPITALIZATION. PATIENT VERBALIZED HAVING NO FURTHER QUESTIONS OR NEEDING ANYTHING FURTHER FROM THIS RN. FAMILY MEMBER TO TAKE PATIENT HOME. IV AND TELE DC'D. PATIENT'S RIDE IS BRINGING AN OXYGEN TANK TO USE ON THE RIDE HOME. PATIENT LEFT BY WHEELCHAIR PUSHED BY SOFIA COSTA. PATIENT HAD NO SIGNS OF DISTRESS UPON LEAVING.
== END 2022-03-05 12:30 | disposition home or self-care (01) | DRG 189 ==
LOC: ER 15:06 → PCU 19:37
PROVIDERS: Emergency Medicine; Internal Medicine; Physician Assistant; ADMIT Internal Medicine
PROC: 5A09357 Assistance with Respiratory Ventilation, Less than 24 Consecutive Hours, Continuous Positive Airway Pressure (ICD-10-PCS; principal; 2022-03-02)
DX: J96.21 Acute and chronic respiratory failure with hypoxia (principal); G92.8 Other toxic encephalopathy; J44.1 Chronic obstructive pulmonary disease with (acute) exacerbation; J96.22 Acute and chronic respiratory failure with hypercapnia; G47.33 Obstructive sleep apnea (adult) (pediatric); F41.9 Anxiety disorder, unspecified; F15.10 Other stimulant abuse, uncomplicated; Z20.822 Contact with and (suspected) exposure to COVID-19; F31.9 Bipolar disorder, unspecified; Z88.5 Allergy status to narcotic agent; Z88.0 Allergy status to penicillin; Z88.7 Allergy status to serum and vaccine; G43.909 Migraine, unspecified, not intractable, without status migrainosus; Z99.81 Dependence on supplemental oxygen; Z90.49 Acquired absence of other specified parts of digestive tract; Z90.710 Acquired absence of both cervix and uterus; Z90.722 Acquired absence of ovaries, bilateral; Z87.891 Personal history of nicotine dependence; Z79.899 Other long term (current) drug therapy
CPT/HCPCS: 0241U; 36415; 36600; 71046; 80048; 80053; 82803; 82947; 83880; 84484; 85025; 93005; 93010; 94640; 94644; 94660; 94664; 94762; 96374; 99285-25; A9270; J1650; J2060; J2930

== ENCOUNTER 2022-03-31 14:00 | Inpatient (IN) | payer OTHER ==
[~2022-03-31] VITALS: Ht 165.1 cm; Wt 53.6 kg
[2022-03-31 15:16] LABS: BASOPHILS ABSOLUTE AUTO 0.02 K/mm3 (0.00-0.23); BASOPHILS PERCENT AUTO 0 % (0-2); EOSINOPHILS ABSOLUTE AUTO 0.04 K/mm3 (0.00-0.68); EOSINOPHILS PERCENT AUTO 0 % (0-6); Hematocrit 44.6 % (33.0-51.0); Hemoglobin 12.3 g/dL (11.5-16.0); IMMATURE GRAN ABSOLUTE AUTO 0.06 K/mm3 (0.00-0.10); IMMATURE GRAN PERCENT AUTO 1 % (0-1); LYMPHOCYTES ABSOLUTE AUTO 0.63 K/mm3 (0.84-5.20); LYMPHOCYTES PERCENT AUTO 6 % (21-46); MONOCYTES ABSOLUTE AUTO 0.59 K/mm3 (0.16-1.47); MONOCYTES PERCENT AUTO 6 % (4-13); Mean Corpuscular HGB 28.3 pg (26.0-34.0); Mean Corpuscular HGB Conc 27.6 g/dL (31.5-36.5); Mean Corpuscular Volume 103 fL (80-100); Mean Platelet Volume 10.5 fL (9.1-12.4); NEUTROPHILS ABSOLUTE AUTO 8.91 K/mm3 (1.96-9.15); NEUTROPHILS PERCENT AUTO 87 % (41-73); Platelet Count 167 K/mm3 (150-400); RDW Coefficient Variation 13.5 % (11.7-14.2); RDW Standard Deviation 51.5 fL (35.1-46.3); Red Blood Cell Count 4.34 M/mm3 (3.80-5.20); White Blood Cell Count 10.25 K/mm3 (4.00-11.30)
[2022-03-31 15:23] LABS: Base Excess Venous 21.5 mmol/L; Bicarbonate Venous 41.4 mmol/L (24.0-30.0); PCO2 Venous 84.9 mmHg (38-42); pH Blood Venous 7.35 (7.34-7.37)
[2022-03-31 15:30] LABS: Influenza A, PCR NEGATIVE (NEGATIVE); Influenza B, PCR NEGATIVE (NEGATIVE); Resp Syncytial Virus, PCR NEGATIVE (NEGATIVE); SARS-Cov-2 (COVID-19) PCR, MMC NEGATIVE (NEGATIVE)
[2022-03-31 16:13] LABS: Alanine Aminotransfer (ALT/SGP 25 U/L (12-78); Albumin, Blood 3.6 g/dL (3.4-5.0); Albumin/Globulin Ratio 1.2 (0.8-1.8); Alk Phos 76 U/L (50-136); Aspartate Aminotrans (AST/SGOT 22 U/L (12-37); Bilirubin, Total 0.4 mg/dL (0.1-1.0); Blood Urea Nitrogen 15 mg/dL (8-24); Bun/Creatinine Ratio 44.1 (12.0-20.0); Calcium, Blood 9.2 mg/dL (8.5-10.1); Chloride, Blood 95 mmol/L (98-108); Creatinine, Blood 0.34 mg/dL (0.40-1.00); Globulin, Blood 2.9 g/dL (2.2-4.0); Glomerular Filtration Rate 127 (60-); Glucose, Blood 122 mg/dL (70-99); Potassium, Blood 4.2 mmol/L (3.5-5.5); Sodium, Blood 142 mmol/L (136-145); Total Protein, Blood 6.5 g/dL (6.4-8.2)
[2022-03-31 16:14] LABS: Anion Gap Unable to Calculate mmol/L (6-16); CO2, Blood >45 mmol/L (21-32)
[2022-03-31 16:35] LABS: U Amphetamine Screen DETECTED; U Methamphetamine Screen DETECTED; U Opiates Screen DETECTED
[2022-03-31 16:36] LABS: U Barbituate Screen Not Detected; U Benzodiazapine Screen Not Detected; U Buprenorphine Screen Not Detected; U Cannabinoids Screen DETECTED; U Cocaine Screen Not Detected; U Methadone Screen Not Detected; U Oxycodone Screen Not Detected; U Phencyclidine Screen Not Detected; U Propoxyphene Screen Not Detected
[2022-03-31 16:59] LABS: Source, Urine Foley catheter
[2022-03-31 17:04] LABS: Appearance, Urine Hazy (Clear); Bilirubin, Urine Neg (Neg); Blood, Urine 1+ (Neg); Color, Urine Yellow (P-Yellow); Glucose Qualitative, Urine Neg (Neg); Ketones, Urine Neg (Neg); Leukocyte Esterase, Urine Neg (Neg); Nitrite, Urine Neg (Neg); Protein, Urine 2+ (Neg); Specific Gravity, Urine 1.025 (1.003-1.022); Urobilinogen, Urine NORM (Normal)
[2022-03-31 17:43] LABS: Bacteria Many /hpf; Squamous Epithelial Cells Few /hpf (Few)
--- NOTE | 2022-03-31 18:10 | NUR ---
PT ARRIVED FROM ER AT 1756. NS INFUSING AT A RATE OF 75ML/HR. PT IS LETHARGIC BUT FOLLOWING COMMANDS EQUALLY IN ALL EXTREMETIES. PUPILS EQUAL AND REACTIVE. RADIAL AND PEDAL PULSES PRESENT. PT IS TACHY IN THE 120'S. NO EDEMA. HYPOACTIVE BOWEL SOUNDS. MEDINA IN PLACE DRAINING DARK YELLOW URINE. SKIN IS COOL AND DRY, WITH SCATTERED BRUISING OF DIFFERENT STAGES OF HEALING ON BLE. SACRAL SKIN IS INTACT. LUNGS ARE DIMINISHED, WITH LITTLE TO NO AIR MOVEMENT HEARD IN THE UPPER LOBES AND CRACKLES IN THE BASES. PT IS ON BIPAP, 50%/8. RR AT 22.
--- NOTE | 2022-03-31 21:23 | NUR ---
ASSUMED CARE. LETHARGIC, WILL OPEN EYES OCCATIONALLY, GROANS, DOES NOT FOLLOW DIRECTIONS. PUPILS REACTIVE TO LIGHT 3MM. HAS PURPOSEFUL EXTREMITY MOVEMENTS. LS CLEAR, DIM IN BASES, ON BIPAP 18/8 FIO2 50%. TACHYCARDIC IN THE 110-120'S. BP WNL. BT HYPOACTIVE. TEMP MEDINA READING ALL OVER THE PLACE. AXILLARY CHECKED AND GOT 97.7, TEMPANIC 97.1. BRUISING NOTED TO BLE, BUE. IVF INFUSING L AC. WILL CONTINUE TO MONITOR.
[2022-04-01 03:42] LABS: BASOPHILS ABSOLUTE AUTO 0.02 K/mm3 (0.00-0.23); BASOPHILS PERCENT AUTO 0 % (0-2); EOSINOPHILS PERCENT AUTO 0 % (0-6); Hematocrit 44.2 % (33.0-51.0); Hemoglobin 12.1 g/dL (11.5-16.0); IMMATURE GRAN ABSOLUTE AUTO 0.06 K/mm3 (0.00-0.10); IMMATURE GRAN PERCENT AUTO 1 % (0-1); LYMPHOCYTES ABSOLUTE AUTO 0.38 K/mm3 (0.84-5.20); LYMPHOCYTES PERCENT AUTO 4 % (21-46); MONOCYTES ABSOLUTE AUTO 0.08 K/mm3 (0.16-1.47); MONOCYTES PERCENT AUTO 1 % (4-13); Mean Corpuscular HGB 28.1 pg (26.0-34.0); Mean Corpuscular HGB Conc 27.4 g/dL (31.5-36.5); Mean Corpuscular Volume 103 fL (80-100); Mean Platelet Volume 10.9 fL (9.1-12.4); NEUTROPHILS ABSOLUTE AUTO 8.32 K/mm3 (1.96-9.15); NEUTROPHILS PERCENT AUTO 94 % (41-73); Platelet Count 164 K/mm3 (150-400); RDW Coefficient Variation 13.3 % (11.7-14.2); RDW Standard Deviation 50.9 fL (35.1-46.3); White Blood Cell Count 8.86 K/mm3 (4.00-11.30)
[2022-04-01 04:17] LABS: Alanine Aminotransfer (ALT/SGP 22 U/L (12-78); Albumin, Blood 3.2 g/dL (3.4-5.0); Alk Phos 72 U/L (50-136); Anion Gap Unable to Calculate mmol/L (6-16); Aspartate Aminotrans (AST/SGOT 14 U/L (12-37); Bilirubin, Total 0.4 mg/dL (0.1-1.0); Blood Urea Nitrogen 20 mg/dL (8-24); Bun/Creatinine Ratio 49.4 (12.0-20.0); CO2, Blood >45 mmol/L (21-32); Calcium, Blood 8.6 mg/dL (8.5-10.1); Chloride, Blood 95 mmol/L (98-108); Creatinine, Blood 0.41 mg/dL (0.40-1.00); Globulin, Blood 3.2 g/dL (2.2-4.0); Glomerular Filtration Rate 121 (60-); Glucose, Blood 129 mg/dL (70-99); Potassium, Blood 5.2 mmol/L (3.5-5.5); Sodium, Blood 142 mmol/L (136-145); Total Protein, Blood 6.4 g/dL (6.4-8.2)
--- NOTE | 2022-04-01 06:05 | NUR ---
SHIFT SUMMARY: REMAINS LETHARGIC, WILL OPEN HER EYES TO NAME, DOES REPSOND WITH MOANS AND GROANS BUT FOR THE MOST PART NON-VERBAL. DOES NOT FOLLOW DIRECTIONS. HAS REMAINED ON BIPAP ALL NIGHT. DOES SHIFT SELF IN BED EVERY NOW AND THEN. BIPAP ON AVAPS MODE- VT 400, RR 20, EPAP 10, AND FIO2 AT 55%. SATS HAVE MAINTAINED >90%. LS REMAIN DIM IN BASES, NO COUGH HAS BEEN NOTED. SINUS TACH IN THE 110-120'S. BP WNL. MEDINA WITH SMALL AMOUNT OF OUTPUT 500CC TRAE URINE. SKIN BRUSIING ALL OVER LEGS. NO OTHER CHANGES TO NOTE THIS SHIFT.
--- NOTE | 2022-04-01 07:50 | NUR ---
CARE OF PT ASSUMED AT 0700. PT SLEEPING ON BIPAP: AVAPS TV/400/RATE 20/EPAP 10. PT RESP RATE AROUND 18. VERY DIMINISHED BREATH SOUNDS T/O, ALMOST ABSENT TO BASES. BIPAP REMOVED FOR ORAL CARE AND PLACED ON 4L O2, PT QUICKLY DESATURATED MID 80'S W GASPING, BIPAP IMMEDIATELY REPLACED. PT RECOVERED WITHIN 1 MIN. SATS NOW 92%. RT NOTIFIED. PT ABLE TO STATE NAME AND SAY SHE WAS AT THE HOSPITAL, BUT KEPT REPEATING SAME WORDS OVER AND OVER AGAIN. PT ALSO STATED "I NEED TO GO/LEAVE" CONTINUOUSLY. PT QUICKLY FEEL BACK TO SLEEP AFTER BIPAP REPLACED. BRIDGE OF NOSE SLIGHTLY RED, WILL PLACE GEL PAD. BP STABLE. HR RATE 90-130, DEPENDING ON STIMULATION.
[2022-04-01 08:20] LABS: Base Excess Venous 25.2 mmol/L; Bicarbonate Venous 44.5 mmol/L (24.0-30.0); PCO2 Venous 102 mmHg (38-42); pH Blood Venous 7.31 (7.34-7.37)
--- NOTE | 2022-04-01 08:36 | NUR ---
[facility] RESULTS CALLED IN TO DR AUSTIN, HE WILL SEE PT SHORTLY. SATS >90%, RESP UNLABORED
--- NOTE | 2022-04-01 09:25 | NUR ---
DR OLIVER CONSULTED FOR RESP FAILURE, AT BEDSIDE SEEING PT.
--- NOTE | 2022-04-01 09:45 | NUR ---
NS BOLUS STARTED, TV INCREASED TO [address] OLIVER, BREATHING TX GIVEN PER DR OLIVER BY RT. PT RESTLESS W LABORED BREATHING AT TIMES.
[2022-04-01 10:25] LABS: pH Blood Arterial 7.31 (7.35-7.45)
[2022-04-01 10:26] LABS: PCO2 Arterial 101 mmHg (35-45)
[2022-04-01 12:42] LABS: PCO2 Arterial 68.8 mmHg (35-45); pH Blood Arterial 7.43 (7.35-7.45)
--- NOTE | 2022-04-01 13:48 | NUR ---
PT INTUBATED BY DR CLAIRE AT [address] OLIVER AT BEDSIDE WELL. ETT 7.5, 24@TEETH. KELLEY. 60 GIVEN AT 1043 AND ETOM. 20 GIVEN AT 1042 FOR INTUBATION. PROPOFOL STARTED AT 30MCG AND QUICKLY TITRATED UP TO 80MCG FOR EXTREME AGITATION. DR. CLAIRE NOTIFIED, FENT LIGHT INDUSTRIAL STARTED W 50MCG/HR AND 50MCG BOLUS, ATIVAN 2MG GIVEN WELL. PT WITH COPIOUS AMTS OF THICK, STRINGY, CHRISTOPHER SPUTUM; SAMPLE SENT TO LAB. VENT SETTINGS NOW: AC/VC 16/400/60%/8. OGT PLACED, OG AND ETT VERIFIED BY XRAY. 1L BOLUS STARTED PRIOR TO INTUBATION, FOLLOWED BY 500CC BOLUS POST EXTUBATION. LR INFUSING AT 75CC/HR. NS AT TKO. PROPOFOL AT 50MCG NOW. PT HYPOTENSIVE W MAPS >65. PT AROUSES WITH ANY STIMULATION AND HAS BECOME DANGEROUSLY AGITATED, REACHING FOR TUBE. LUNGS DIMINISHED WITH WHEEZES T/O.
--- NOTE | 2022-04-01 17:25 | NUR ---
PROPOFOL AT 45MCG, PT DOES AROUSE W STIMULI, BUT HAS NOT BEEN SEVERELY AGITATED. FENT GTT AT 50MCG/HR, LR AT 75CC/HR. VENT SETTINGS AC/VC 16/400/50%/8. DIMINISHED/WHEEZES T/O. 350CC DARK, CONCENTRATED U/O THIS SHIGT. OG CLAMPED, MINIMAL OUTPUT. IJEOMA FABIAN WAS CONTACTED PER PT REQUEST AND UPDATED. ATTEMPTED TO CONTACT WENDY, PT'S SON PER PT REQUEST. PT ALSO STATED THAT SHE WANTED WENDY TO MAKE MEDICAL DECISONS FOR HER. PHONE NUMBER PROVIDED BY PT'S DAUGHTER FOR WENDY DID NOT WORK/DISCONNECTED. I DID MAKE A REQUEST FOR FRIEND OR DAUGHTER TO REACH OUT TO WENDY IF POSSIBLE, AND TO GIVE US A CALL.
--- NOTE | 2022-04-01 17:37 | NUR ---
DR CLAIRE GIVEN UPDATE. 500CC NS BOLUS ORDERED, FOLLOWED BY LR AT 100CC/HR
--- NOTE | 2022-04-01 20:11 | NUR ---
ASSUMED CARE AT 1900 PT LAYING IN BED INTUBATED WITH VENT SETTINGS AC/VC 16/400/8/50%; PT BECAME AGITATED WHEN RT WAS ATTEMPTING TO MOVE BITE BLOCK, PROPOFOL TITRATED UP TO 60MCG/KG/MIN; SHE WAS STILL RESISTIVE TO THE MOVEMENT OF THE ET TUBE BUT LESS WITH PROPOFOL INCREASED; LARGE AMOUNT OF THICK WHITE SECREATES FROM ETT. SHE IS ABLE TO FOLLOW SIMPLE COMMANDS AND MAKE EYE CONTACT WITH THIS RN BUT SHE DID NOT ANSWER Y/N QUESTIONS; SPONTANIOUSLY MOVING EXTREMITITES; FENTANYL INFUSING AT 50MCG/MIN. TEMP 99.6. HR 120-130'S; SBP 90-100, MAP >65. OG CLAMPED. MEDINA IN PLACE AND DRAINING TO GRAVITY. LR INFUSING AT 100ML/HR. SEE SHIFT ASSESSMENT FOR FULL ASSESSMENT.
[2022-04-02 04:49] LABS: PCO2 Arterial 60.2 mmHg (35-45); pH Blood Arterial 7.46 (7.35-7.45)
[2022-04-02 04:58] LABS: BASOPHILS PERCENT AUTO 0 % (0-2); EOSINOPHILS PERCENT AUTO 0 % (0-6); Hematocrit 34.3 % (33.0-51.0); Hemoglobin 9.7 g/dL (11.5-16.0); IMMATURE GRAN ABSOLUTE AUTO 0.02 K/mm3 (0.00-0.10); IMMATURE GRAN PERCENT AUTO 0 % (0-1); LYMPHOCYTES ABSOLUTE AUTO 0.77 K/mm3 (0.84-5.20); LYMPHOCYTES PERCENT AUTO 10 % (21-46); MONOCYTES ABSOLUTE AUTO 0.47 K/mm3 (0.16-1.47); MONOCYTES PERCENT AUTO 6 % (4-13); Mean Corpuscular HGB 27.7 pg (26.0-34.0); Mean Corpuscular HGB Conc 28.3 g/dL (31.5-36.5); Mean Platelet Volume 11.1 fL (9.1-12.4); NEUTROPHILS ABSOLUTE AUTO 6.14 K/mm3 (1.96-9.15); NEUTROPHILS PERCENT AUTO 83 % (41-73); Platelet Count 168 K/mm3 (150-400); RDW Standard Deviation 50.5 fL (35.1-46.3)
[2022-04-02 05:06] LABS: Albumin, Blood 2.5 g/dL (3.4-5.0); Bilirubin, Direct 0.1 mg/dL (0.0-0.3); Bilirubin, Indirect 0.5 mg/dL (0.1-0.7); Bilirubin, Total 0.6 mg/dL (0.1-1.0); Bun/Creatinine Ratio 44.7 (12.0-20.0); Calcium, Blood 8.2 mg/dL (8.5-10.1); Creatinine, Blood 0.4 mg/dL (0.40-1.00); Globulin, Blood 2.6 g/dL (2.2-4.0); Phosphorus, Blood 1.5 mg/dL (2.5-4.9); Total Protein, Blood 5.1 g/dL (6.4-8.2)
[2022-04-02 05:14] LABS: Mean Corpuscular Volume 98 fL (80-100)
--- NOTE | 2022-04-02 05:35 | NUR ---
UPDATE CALLED DR GORDON REGARDING MORNING PHOS OF 1.5. NEW ORDERS PROVIDED FOR 15mm POTASSIUM PHOS IV X1.
--- NOTE | 2022-04-02 06:21 | NUR ---
END OF SHIFT SUMMARY NO ACUTE EVENTS OVERNIGHT. PT CONT TO BE SEDATED WITH FENTANYL INFUSING AT 50MCG/HR AND PROPOFOL RANGING FROM 50-60MCG/KG/MIN, WILL TITRATE UP AFTER PERSONAL CARE DUE TO AGITATION FOLLOWED BY TITRATING DOWN ONCE LESS AGITATED; CONT TO FOLLOW SIMPLE COMMANDS WHEN AGITATED BUT NOT ANSWERING Y/N QUESTIONS. CONT TO BE ON VENT WITH SETTINGS AC/VC 16/400/8/50%; MODERATE TO LARGE AMOUNT OF SECREATIONS FROM ETT AND ORALLY. AFEBRILE. HR 100-130. SBP 90-110, MAP >65. OG CLAMPED. MEDIAN IN PLACE WITH 450ML OF URINE OUTPUT. LR INFUSING AT 100ML/HR. POTASSIUM PHOS INFUSING NOW. WILL REPORT TO AM RN WHEN AVAILABLE.
--- NOTE | 2022-04-02 08:33 | NUR ---
SPOKE WITH DR. CLAIRE ON ROUNDS AND HE GAVE OK TO ORDER DIETARY CONSULT AND START TUBE FEEDS. DISCUSSED SEDATION WITH HIM EVEN ON CURRENT SEDATION PT WAKES UP AND FOLLOWS DIRECTIONS, BUT APPEARS AGITATED/ANXIOUS. DR. CLAIRE GAVE ORDERS TO TRY SWITCHING PROPOFOL TO PRECEDEX AND THEN IF PT IS CALM ON THE PRECEDEX TO TRY TITRATING DOWN THE FENTANYL. ORDER FOR PRECEDEX PLACED.
--- NOTE | 2022-04-02 10:04 | NUR ---
STARTED PRECEDEX AND WAS TITRATING DOWN PROPOFOL TO SEE IF PT WOULD MAANGE PT'S ANXIETY BETTER. WITH PROPOFOL AT 20 MCG/MIN AND PRECEDEX AT 0.7 MCG/KG/HR PT WAS AWAKE, AGITATED, PULLING ON RESTRAINTS AND LEANING FORWARD TO GRAB THE ETT. PRECEDEX INCREASED TO 1.4MCG/KG/MIN BUT PT REMAINED AGITATED AND WAS ACTUALLY ABLE TO LEAN FORWARD FAR ENOUGH TO GRAB HER OGT DESPITE THIS NURSE BEING RIGHT AT THE BEDSIDE. THIS NURSE WAS ABLE TO RELEASE OGT BEFORE PT PULLED ON IT AND ETT REMAINS AT 24 AT THE LIP. RT NOTIFIED TO DOUBLE CHECK PLACEMENT WELL. PROPOFOL INCREASED BACK TO 50 AND ONCE PT SEDATE, PRECEDEX TURNED OFF. DR. CLAIRE NOTIFIED OF EVENTS AND GAVE OK TO CONTINUE PROPOFOL AND DC PRECEDEX.
--- NOTE | 2022-04-02 11:47 | NUR ---
REASSESSMENT PT REMAINS INTUBATED AND SEDATED. SHE IS RESTING QUIETLY AGAIN WITH PROPOFOL AND FENTANYL FOR SEDATION. SHE WAKES TO VOICE AND FOLLOWS COMMANDS. VERY ANXIOUS WHEN AWAKE, TRIES TO PULL AT TUBE AND LEAN FORWARD, BUT SETTLES BACK DOWN WHEN UNDISTURBED. SINUS TACH WITH RATE IN THE LOW 100S WHEN RESTING, UP TO 120S WHEN MORE ALERT. BP STABLE. LS HAVE FAINT WHEEZING BILATERALLY. OG REMAINS CLAMPED, WAITING FOR HOUSE WIRER HELPER'S ORDERS. MEDINA WITH YELLOW/GREEN TINTED URINE, CLEAR. CONTINUING TO MONITOR.
--- NOTE | 2022-04-02 16:49 | NUR ---
SHIFT SUMMARY PT REMAINED INTUBATED AND SEDATED THIS SHIFT. SHE WAKES TO VERBAL AND HAS WOKEN SPONTANEOUSLY THROUGHOUT THE SHIFT. WHEN SHE WAKES SHE HAS BEEN LESS AGITATED THAN EARLIER IN THE SHIFT, BUT STILL PULLS ON THE RESTRAINTS AND LEANS FORWARD TRYING TO REACH FOR HER ETT. WHEN LEFT UNDISTURBED SHE SETTLES BACK TO SLEEP WITHOUT ANY ADJUNCT MEDICATION. HER LUNGS REMAINS WHEEZY AND DIM. SMALL TO MODERATE AMT OF WHITE AND CLEAR SECRETIONS. SINUS TACH, BP STABLE. TUBE FEED STARTED THIS AFTERNOON AND PT IS TOLERATING SO FAR. GOOD URINE OUTPUT TODAY, SEE I/O. PT'S SO AND SON CAME BY THIS AFTERNOON AND WERE UPDATED BY NURSING STAFF.
--- NOTE | 2022-04-02 22:36 | NUR ---
ASSUMPTION OF CARE: ASSUMED CARE OF PT AT 1900. PT IS INTUBATED AND SEDATED AT THIS TIME WITH PROPOFOL RUNNING AT 60 MCG/KG/MIN AND VENT SETTINGS 16/400/8.0/40%. PT IS AGGITATED AND ANXIOUS WHEN OVER STIMULATED AND WITH PT CARE. PT IS ATTEMPTING TO SIT UP IN BED AND COUGHING DURING THIS TIME. PT APPEARS EMOTIONAL DURING THESE EPISODES AND IS COMFORTED. PT HAS A FENTANYL GOLF [employer] WEIGHTER PUMP GTT @ 50 MCG/HR AND IS RECIEVING FENTANYL 25 MCG Q4HR PRN FOR PAIN. PT HAS BEEN RECIEIVING THIS EVERY HOUR SINCE THIS RN ASSUMED CARE. CALL PLACED TO DR ROSARIO AND ORDERS RECIEVED FOR INCREASE TO FENTANLY GOLF [employer] WEIGHTER TO 75 MCG/HR AND ATIVAN 1 MG Q4HR PRN/ THE PT RESPONDED REALLY WELL TO THE ATIVAN AND AGGITATED DIMINISHED WHEN PROVIDER PT CARE/RESPOSITIONING. PT IS ABLE TO OPEN EYES/TRACK AND IS FOLLOWING SIMPLE COMMANDS. PT ABLE TO NOD YES/NO WHEN ASKED IF SHE IS IN PAIN. INSPIRATORY WHEEZES BILATERALLY AND COARSE LOWER LOBES; O2 LEVELS MAINTAINING 92<. PT HAS CONTINUOUS WINDOW TINTER IN PLACE WITH HR 90-100'S, SBP 130'S, AND MAP 65<. HYPOACTIVE BS PRESENT IN ALL FOUR QUADRANTS, ABD SOFT, NON-TENDER. PGT PRESENT AND INFUSING PIVOT 1.5 @ 25 MLS/HR. TEMP MEDINA IN PLACE THAT IS DRAINING TO GRAVITY; CLEAR, LIGHT, YELLOW URINE. WARM EXTREMITIES, CAP REFIL < 3 SECONDS, AND PPP X 4. LR GTT @ 100 MLS/HR, NS TKO @ 10 MLS/HR. WILL CONTINUE TO MONITOR THROUGHOUT THE SHIFT.
[2022-04-03 04:06] LABS: BASOPHILS ABSOLUTE AUTO 0.01 K/mm3 (0.00-0.23); BASOPHILS PERCENT AUTO 0 % (0-2); EOSINOPHILS PERCENT AUTO 0 % (0-6); Hematocrit 33.2 % (33.0-51.0); Hemoglobin 10.2 g/dL (11.5-16.0); IMMATURE GRAN ABSOLUTE AUTO 0.03 K/mm3 (0.00-0.10); IMMATURE GRAN PERCENT AUTO 0 % (0-1); LYMPHOCYTES ABSOLUTE AUTO 0.39 K/mm3 (0.84-5.20); LYMPHOCYTES PERCENT AUTO 5 % (21-46); MONOCYTES ABSOLUTE AUTO 0.24 K/mm3 (0.16-1.47); MONOCYTES PERCENT AUTO 3 % (4-13); Mean Corpuscular HGB 28.2 pg (26.0-34.0); Mean Corpuscular HGB Conc 30.7 g/dL (31.5-36.5); Mean Platelet Volume 10.8 fL (9.1-12.4); NEUTROPHILS ABSOLUTE AUTO 6.87 K/mm3 (1.96-9.15); NEUTROPHILS PERCENT AUTO 91 % (41-73); Platelet Count 173 K/mm3 (150-400); RDW Coefficient Variation 14.6 % (11.7-14.2); Red Blood Cell Count 3.62 M/mm3 (3.80-5.20); White Blood Cell Count 7.54 K/mm3 (4.00-11.30)
[2022-04-03 04:14] LABS: Mean Corpuscular Volume 92 fL (80-100)
[2022-04-03 04:33] LABS: Albumin, Blood 2.7 g/dL (3.4-5.0); Bilirubin, Direct 0.2 mg/dL (0.0-0.3); Bilirubin, Indirect 0.2 mg/dL (0.1-0.7); Bilirubin, Total 0.4 mg/dL (0.1-1.0); Bun/Creatinine Ratio 37.9 (12.0-20.0); Calcium, Blood 8.9 mg/dL (8.5-10.1); Creatinine, Blood 0.34 mg/dL (0.40-1.00); Globulin, Blood 2.7 g/dL (2.2-4.0); Magnesium, Blood 2.2 mg/dL (1.6-2.4); Phosphorus, Blood 2.8 mg/dL (2.5-4.9); Potassium, Blood 3.6 mmol/L (3.5-5.5); Total Protein, Blood 5.4 g/dL (6.4-8.2)
[2022-04-03 05:23] LABS: PCO2 Arterial 54.9 mmHg (35-45); PO2 Arterial 63.9 mmHg (80-100); pH Blood Arterial 7.46 (7.35-7.45)
--- NOTE | 2022-04-03 06:59 | NUR ---
SHIFT SUMMARY: NO ACUTE CHANGES SHIFT. PT REMAINS SEDATED AND VENTILATED WITH PROPOFOL RUNNING AT 40 MCG, FENTANYL SECURITY TESTER 75 MCG/HR, AND VENT SETTINGS AC/VC 16/400/8.0/40%. HR IN THE 100'S, SBP 1120'S AND MAP 65<. PT LUNG SOUNDS CLEAR IN UPPER LOBES BILATERALLY AND DIM BASES. GOOD URINE OUTPUT AT 900 MLS; URINE CLEAR AND LIGHT, GREEN TINT. NO BOWEL MOVEMENT THIS SHIFT. PT MORE CALM AND RELAXED WITH NEW MED ORDERS AT THE BEGINNING OF SHIFT. PT WAS ABLE TO SLEEP THROUGHOUT THE LAST HALF OF THE SHIFT. BEDSIDE REPORT GIVEN TO SHAVONNE ALONZO.
--- NOTE | 2022-04-03 10:48 | NUR ---
EXTUBATION RT NIKKY AT BEDSIDE. VERBAL ORDER FROM DR CLAIRE RECIEVED TO EXTUBATE PT. PT EXTUBATED AT 1040. PT PLACED ON 5L O2 NC. PT WITH STRONG COUGH EFFORT. OGT DISCONTINUED WITH EXTUBATION. PT IS CALM AND COOPERATIVE. PRECEDEX INFUSING AT 0.5 MCG/KG/HR. WILL CONTINUE TO MONITOR.
--- NOTE | 2022-04-03 17:27 | NUR ---
SHIFT SUMMARY PT DID WELL THIS SHIFT. PT EXTUBATED THIS MORNING TO 4L O2 NC. PT HAS REMAINED ON 4L 02 NC. PT SON TO BRING IN HOME TRILOGY VENT THIS EVENING. PT HAS REMAINED DROWSEY THIS SHIFT, BUT ANSWERS QUESTIONS APPROPRIATELY. PT DOES COMPLAIN OF HEADACHE AT TIMES. PT DENIES SOB AT REST. PG TO NITZA REMAINS IN PLACE WITH LR INFUSING AT 100 ML/HR AND NS TKO. PT TAKING IN PO INTAKE WELL. VITAL SIGNS STABLE. MEDINA IN PLACE WITH DARK YELLOW URINE OUTPUT NOTED. WILL CONTINUE TO MONITOR AND REPORT OFF TO ONCOMING RN.
--- NOTE | 2022-04-03 20:55 | NUR ---
ASSUMED CARE. AOX3, DOES NOT KNOW DAY BUT ABLE TO ANSWER ALL OTHER QUESTIONS APPROPRIATLY. DROWSY STATES ITS BECAUSE SHE HAS A HEADACHE. FAMILY MEMEBER PRESENT STATES HER HEADACHES ARE CONSTANT THEY DO NOT KNOW WHAT IS CAUSING THEM. STATES TYLENOL AND FENTANYL HAVE NOT HELPED IT. GOT FORICEPT FOR HER. LS ANTERIOR WHEEZES SATS GOOD ON 5L NC. FAMILY BROUGHT IN TRILIOGY. RT WAS IN ROOM SET UP AND PATIENT IS CURRENTLY ON IT WITH SETTINGS 22 IPAP, 12 EPAP, 15 FOR BACK UP AND 7 LITERS BLEED IN. DENIES ANY OTHER CONCERNS. CALL LIGHT IN REACH.
[2022-04-04 06:25] LABS: Bun/Creatinine Ratio 45.3 (12.0-20.0); Calcium, Blood 8.8 mg/dL (8.5-10.1); Creatinine, Blood 0.38 mg/dL (0.40-1.00); Phosphorus, Blood 3.9 mg/dL (2.5-4.9); Potassium, Blood 4.4 mmol/L (3.5-5.5)
--- NOTE | 2022-04-04 07:16 | NUR ---
SHIFT SUMMARY: PT REMAINS AOX3, SLEPT WELL T/O NIGHT AFTER GETTING HER TRIOLOGY SET UP. SHE REMAINED ON 7L BLEED IN THROUGH IT, NO ADJUSTMENTS WERE NEEDED TO KEEP SATS >95%. WAS GIVEN FORICEPT FOR HEADACHE WHICH HELPED TO RELEIVE AND ALLOW HER TO SLEEP T/O NIGHT. VS REMAINED STABLE. LS HAD SOME EXPIRTORY WHEEZES BUT IT DID CLEAR UP AFTER COUGH. SINUS ON MONITOR. CATH REMAINED PATENT. IVF CONTINUE TO INFUSE. NO OTHER CHANGES TO REPORT. CALL LIGHT REMAINS IN REACH.
--- NOTE | 2022-04-04 17:43 | NUR ---
SHIFT SUMMARY NO ACUTE CHANGES THIS SHIFT. PT HAS SLEPT OFF AND ON THROUGHOUT THE DAY. WHEN AWAKE PT IS ALERT AND ORIENTED. PT ALTERNATING BETWEEN TRILOGY HOME BIPAP WITH 8L O2 BLEED IN AND 7L O2 NC. VITAL SIGNS STABLE. LR INFUSING AT 100 ML/HR. PT TAKING IN PO INTAKE WELL. MEDINA REMAINS IN PLACE WITH LARGE AMOUNT OF CLEAR YELLOW OUTPUT NOTED. PT ABLE TO REPOSITION SELF IN BED FOR COMFORT. WILL CONTINUE TO MONITOR AND REPORT OFF TO ONCOMING RN.
--- NOTE | 2022-04-04 20:51 | NUR ---
ASSUME CARE A&OX4. LR 100ML/HR. NO COMPLAINTS OF PAIN, NUMBNESS/TINGLING, OR CHCEST PAIN. SOB AT BASELINE. PT STATES SHES ANXIOUS, WILL MANAGE WITH PRNS.
[2022-04-05 04:26] LABS: Bun/Creatinine Ratio 45.8 (12.0-20.0); Calcium, Blood 8.6 mg/dL (8.5-10.1); Creatinine, Blood 0.42 mg/dL (0.40-1.00); Magnesium, Blood 1.9 mg/dL (1.6-2.4); Phosphorus, Blood 3.5 mg/dL (2.5-4.9); Potassium, Blood 4.2 mmol/L (3.5-5.5)
--- NOTE | 2022-04-05 05:18 | NUR ---
SHIFT SUMMARY PT A&OX4. ANXIETY MANAGED WITH SINGLE ATIVAN DOSE. PT SLEPT THROUGH OUT THE EVENING. NO COMPLAINTS OF CHEST PAIN OR NUMBNESS/TINGLING. SOB AND DYSPNEA WITH EXERTION AT BASELINE. TRILOGY BIPAP WITH 8L O2. LR RUNNING AT 100 ML/HR. MEDINA STILL IN PLACE.
--- NOTE | 2022-04-05 07:00 | NUR ---
ASSUME CARE: I have assumed care of this patient.
--- NOTE | 2022-04-05 10:10 | NUR ---
Pt. is awake in a chair and welcomes my visit. Pt. is pleasant but unsettled by concerns that her daughter(s?) will stay out of trouble. Nurse was called to move Pt. into bed. Resumed visit, and built rapport. Prayed with Pt. and pt. verbalized gratitude for the spiritual care visit.
--- NOTE | 2022-04-05 10:23 | NUR ---
UPDATE: Provider notified of pt's sinus tachycardia. No new orders. Will continue to monitor.
--- NOTE | 2022-04-05 15:16 | NUR ---
SHIFT/TRANSFER SUMMARY: pt transferred to medical floor room 302 from ICU 3 by MATTRESS INSPECTOR after report was given. NEURO: intact. pt up with PT to chair this AM. She transferrs independantly with standby assist for cord management. No complaints of pain. CARDIAC: sinus tachycardia up to 140 with activity. HR down to 110-120's while resting. BPs stable. This was discussed with provider. RESPIRATORY: lung sounds clear. Pt tolerated 7L NC with bubbler well while awake. transitioned back to BIPAP with 7L bleed in while asleep. GI/: 1800mls of urine out. Cervantes removed. No BM this shift. Colase given for constipation. Pt declined milk of mag. SKIN: no new skin breakdown noted PSYCH/SOCIAL: 1mg IV ativan was given after pt reported anxiety. She tolerated this well and has had no further complaints of anxiety.
--- NOTE | 2022-04-05 18:23 | NUR ---
PT TRANSFERED TO THE MEDICAL FLOOR FROM ICU AROUND 1530 VIA WHEELCHAIR, PT IS A/OX3 HARD TO UNDERSTAND AT TIMES. LABORED BREATHING. PT IS ON 8L/MIN O2 VIA NC WHILE AWAKE. PT WEARS BIPAP WHILE ASLEEP WITH 5L/MINO2 BLEED IN. THE PT WAS ORIENTED TO THE ROOM LAYOUT AND CALL SYSTEM CALL LIGHT IN REACH. PT WAS GIVEN ATIVAL 1MG THIS EVENING FOR ANXITY. CALL LIGHT IN REACH. WILL CONTINUE TO MONITOR AND ASSESS FOR CHANGES
--- NOTE | 2022-04-06 06:23 | NUR ---
SHIFT SUMMARY; THE PT SLEPT THROUGHOUT THE NIGHT. THE PT WAS ASSISTED WITH USE OF THE BEDSIDE COMMODE ONCE AND ONCE THE PT ATTEMPTED TO USE BEDSIDE COMMODE INDEPENDTLY AND DROPPED DOWN TO 78% O2 WHILE RT WAS IN THE ROOM. THEREFORE A BED ALARM WAS PLACED ON THE PT TO ENSURE THAT A STAFF MEMBER CAN ASSIST THE PT TO TAKE OFF THE BIPAP AND PUT ON THE NC WHEN USING THE BEDSIDE COMMODE. THE PT REMAINS ON BIPAP WITH 10L O2, THE PT IS CURRENTLY SATING 94%. THE PTS BREATHING IS NO LONGER LABORED. PT REMAINED SLEEPY AND WITHDRAWN THROUGHOUT THE NIGHT. HOWEVER, WITH STIMULATION SUCH RUBBING PT'S ARM, THE PT WAS ABLE TO WAKE UP AND ASNWER QUESTIONS. THE PT DENIES ANY PAIN AT THIS TIME. THE PT IS IN BED, THE BED ALARM IS ON AND THE BED IS IN THE LOWEST POSITION WITH THE CALL LIGHT IN THE PTS LAP.
--- NOTE | 2022-04-06 14:02 | NUR ---
CALLED DR MARINO IVF. PT IS DRINKING WELL. OKAY D/C. ALSO PT FEELING ANX. DR TO MAKE ORDERS.
--- NOTE | 2022-04-06 18:09 | NUR ---
PT PLEASANT TODAY. LUNGS WERE TIGHT AND DIM THIS AM. SPOKE TO THIS AM. ASKED FOR IDEAS. SOME ADDITIONAL PREDNISONE AND BREATHING TREATMENT ORDERS. LUNGS A LITTLE BIT BETTER. DID ALSO GET ATARAX FOR ANXIETY. FAMILY IN TO VISIT TODAY, HAS BEEN ON CPAP THIS AFT. NO OTHER CONCERNS NOTED. BED IN LOW POSITION, CALL LITE IN REACH, CALLS APROP
--- NOTE | 2022-04-07 05:59 | NUR ---
SHIFT SUMMARY; PT PLEASANT AND COOPERATIVE WITH CARE. PT SLEPT ALL NIGHT LONG. PT WITH NO ACUTE MEDICAL CHANGES THROUGHOUT THE NIGHT. THE PTS LUNGS REMAIN TIGHT AND DIMINISHED THROUGHOUT. THE PTS BREATHING EFFORT IS LESS LABORED COMPARED TO THE BEGINNING OF THE SHIFT. THE PT IS AXO X4, INDEPENDENT WITH USE OF THE BEDSIDE COMMODE. REMAINS OF 7L O2 BLEED THROUGH INTO BIPAP, O2 SATS 93-96% THROUGHOUT THE NIGHT. TELE IN PLACE, PT REMAINS SINUS TACH 110-130. 130'S WITH EXERTION. PT IS CURRENTLY RESTING IN BED WITH THE BED IN THE LOWEST POSITION AND THE CALL LIGHT AT BEDSIDE.
--- NOTE | 2022-04-07 16:48 | NUR ---
SUMMARY- PT ALERT ORIENTED X3-4- WITHDRAWN AND SLEEPY THIS AM. AWAKENS FOR MEALS AND EATS 100% BUT HAS DYSPNEA WITH MEALS AND ANY EXERTION. HR ELEVATED INTO THE 130-140'S EARLY AFTERNOON. CALLED DR AUSTIN AND RECEIVED PT'S HOME MED CARDIZEM 1315. ALSO MEDICATED PT WITH ATARAX RELATED TO ANXIETY, RR AND HR WERE ELEVATED IN THE PRESENCE OF GREAT ANXIETY IN RELATION TO WANTING TO GO HOME. RN ASSISTED IN AIDING PT IN RELAXATION TECH AND DEEP BREATHING. CALLED RT, AND PT PLACED ON CPAP 1330 RELATED TO DYSPNIA/TACHYPNEA. WITHIN 1 HOUR PT FELL ASLEEP AND HR 122, SATS 90%, RR 22. DISCHARGE DELAYED IN RELATION TO PT'S HR AND RESP. PT GETS UP TO [facility] SBA. PT DEPSERATELY WANTS TO GO HOME BUT WILL RE-EVAL TOMORROW.
--- NOTE | 2022-04-08 06:07 | NUR ---
SHIFT SUMMARY; PT WITH NO ACUTE MEDICAL CHANGES THROUGHOUT THE NIGHT. PT COOPERATIVE OF CARE ATARAX GIVEN LAST NIGHT AROUND 0200, SEEMS TO BE AFFECTIVE IN CALMING THE PTS ANXIETY. PT REMIANS ON BIPAP, CURRENTLY ON 9L BLEED IN SATING 94%. PT REMAINS INDEPENDENT WITH TRANSFER TO BEDSIDE COMMODE. PLAN IS TO DC HOME TODAY. PT CURRENTLY RESTING IN BED WITH THE BED IN THE LOWEST POSITION, TELE ON- SINUS TACH 110'S, CALL LIGHT IS AT BEDSIDE.
[2022-04-08 09:18] LABS: Base Excess Venous 22.8 mmol/L; Bicarbonate Venous 41.4 mmol/L (24.0-30.0); pH Blood Venous 7.31 (7.34-7.37)
[2022-04-08 15:29] LABS: Base Excess Venous 23.2 mmol/L; Bicarbonate Venous 42.6 mmol/L (24.0-30.0); PCO2 Venous 91.1 mmHg (38-42); PO2 Venous 51.3 mmHg (38-42); pH Blood Venous 7.34 (7.34-7.37)
--- NOTE | 2022-04-08 17:03 | NUR ---
SHIFT SUMMARY PT A/O X4 AND PLEASANT. PT'S DC DELAYED TODAY DUE TO HER O2 SATS. PT WILL DESAT INTO THE LOW 80'S AT TIMES WITH MOVEMENT. PT ON 8 LITERS O2 VIA NC. PT REPORTS THAT SHE USES O2 AT HOME AND THAT SHE USES 2-7 LITERS BUT MOSTLY USES BETWEEN 5-6. DR. FERRARI CONSULTED BY HOSPITALIST. VSS.
[2022-04-08 18:43] LABS: Base Excess Venous 21.5 mmol/L; Bicarbonate Venous 41.6 mmol/L (24.0-30.0); PCO2 Venous 83.5 mmHg (38-42); pH Blood Venous 7.36 (7.34-7.37)
--- NOTE | 2022-04-09 03:56 | NUR ---
SHIT SUMMARY: Pt A/Ox4 and call light appropriate this shift. Overnight pt utilized 4L NC when awake and 9L Bipap when asleep. Had some SOB but stated it was nothing worse or new. Denied pain, nausea, and dizziness. Pt slept well inbetween cares. No tele calls overnight. pt did not threaten to leave AMA this shift.
[2022-04-09 06:52] LABS: BASOPHILS ABSOLUTE AUTO 0.02 K/mm3 (0.00-0.23); BASOPHILS PERCENT AUTO 0 % (0-2); EOSINOPHILS ABSOLUTE AUTO 0.03 K/mm3 (0.00-0.68); EOSINOPHILS PERCENT AUTO 0 % (0-6); Hemoglobin 11.8 g/dL (11.5-16.0); IMMATURE GRAN ABSOLUTE AUTO 0.08 K/mm3 (0.00-0.10); IMMATURE GRAN PERCENT AUTO 1 % (0-1); LYMPHOCYTES ABSOLUTE AUTO 1.59 K/mm3 (0.84-5.20); LYMPHOCYTES PERCENT AUTO 13 % (21-46); MONOCYTES ABSOLUTE AUTO 1.05 K/mm3 (0.16-1.47); MONOCYTES PERCENT AUTO 9 % (4-13); Mean Corpuscular HGB 27.6 pg (26.0-34.0); Mean Corpuscular HGB Conc 28.8 g/dL (31.5-36.5); Mean Corpuscular Volume 96 fL (80-100); Mean Platelet Volume 10.8 fL (9.1-12.4); NEUTROPHILS ABSOLUTE AUTO 9.31 K/mm3 (1.96-9.15); NEUTROPHILS PERCENT AUTO 77 % (41-73); Platelet Count 254 K/mm3 (150-400); RDW Coefficient Variation 13.7 % (11.7-14.2); RDW Standard Deviation 48.4 fL (35.1-46.3); Red Blood Cell Count 4.28 M/mm3 (3.80-5.20); White Blood Cell Count 12.08 K/mm3 (4.00-11.30)
[2022-04-09 07:10] LABS: Bun/Creatinine Ratio 49.7 (12.0-20.0); Calcium, Blood 8.2 mg/dL (8.5-10.1); Creatinine, Blood 0.34 mg/dL (0.40-1.00); Magnesium, Blood 2.1 mg/dL (1.6-2.4); Potassium, Blood 3.8 mmol/L (3.5-5.5)
[2022-04-09] MEDS ORDERED: GUAI600T33 PO (13:11)
== END 2022-04-09 14:04 | disposition home or self-care (01) | DRG 208 ==
LOC: ER 14:00 → MEDS 16:29 → ICUW 16:29 → ICUE 16:29 → MEDS 04-05 15:36
PROVIDERS: Internal Medicine Critical Care Medicine; Student in an Organized Health Care Education/Training Program; ADMIT Internal Medicine
PROC: 0BH17EZ Insertion of Endotracheal Airway into Trachea, Via Natural or Artificial Opening (ICD-10-PCS; 2022-04-01)
PROC: 5A1935Z Respiratory Ventilation, Less than 24 Consecutive Hours (ICD-10-PCS; principal; 2022-04-02)
DX: J96.21 Acute and chronic respiratory failure with hypoxia (principal); G92.8 Other toxic encephalopathy; J44.1 Chronic obstructive pulmonary disease with (acute) exacerbation; J96.22 Acute and chronic respiratory failure with hypercapnia; F15.10 Other stimulant abuse, uncomplicated; F17.210 Nicotine dependence, cigarettes, uncomplicated; G47.33 Obstructive sleep apnea (adult) (pediatric); R00.0 Tachycardia, unspecified; Z20.822 Contact with and (suspected) exposure to COVID-19; B96.5 Pseudomonas (aeruginosa) (mallei) (pseudomallei) as the cause of diseases classified elsewhere; F31.9 Bipolar disorder, unspecified; G43.909 Migraine, unspecified, not intractable, without status migrainosus; R63.4 Abnormal weight loss; Z88.0 Allergy status to penicillin; Z88.5 Allergy status to narcotic agent; Z88.7 Allergy status to serum and vaccine; Z79.899 Other long term (current) drug therapy; Z79.52 Long term (current) use of systemic steroids; Z79.51 Long term (current) use of inhaled steroids; Z90.49 Acquired absence of other specified parts of digestive tract; Z98.890 Other specified postprocedural states; Z90.710 Acquired absence of both cervix and uterus; Z90.722 Acquired absence of ovaries, bilateral; Z68.21 Body mass index [BMI] 21.0-21.9, adult
CPT/HCPCS: 0241U; 31500; 36415; 36600; 51701; 51702; 70450; 71045; 80048; 80053; 80076; 81001; 82248; 82803; 82947; 83735; 83880; 84100; 84145; 84484; 85025; 85379; 85730; 87070; 87077; 87086; 87186; 87205; 93005; 93010; 93306; 94002; 94003; 94640; 94644; 94660; 94664; 94762; 96374-59; 97116; 97162; 97165; 97530; 99285-25; A9270; C1751; C9113; G0480; J1650; J1956; J2060; J2310; J2704; J2930; J3010; J7030; J7040; J7050; J7060; J7120; J7512

== ENCOUNTER 2022-04-11 17:50 | Inpatient (IN) | payer OTHER ==
[~2022-04-11] VITALS: Ht 160 cm; Wt 51.8 kg
[2022-04-11 19:22] LABS: BASOPHILS ABSOLUTE AUTO 0.03 K/mm3 (0.00-0.23); BASOPHILS PERCENT AUTO 0 % (0-2); EOSINOPHILS ABSOLUTE AUTO 0.08 K/mm3 (0.00-0.68); EOSINOPHILS PERCENT AUTO 0 % (0-6); Hematocrit 48.8 % (33.0-51.0); Hemoglobin 13.8 g/dL (11.5-16.0); IMMATURE GRAN PERCENT AUTO 1 % (0-1); LYMPHOCYTES ABSOLUTE AUTO 0.98 K/mm3 (0.84-5.20); LYMPHOCYTES PERCENT AUTO 5 % (21-46); MONOCYTES ABSOLUTE AUTO 0.92 K/mm3 (0.16-1.47); MONOCYTES PERCENT AUTO 5 % (4-13); Mean Corpuscular HGB Conc 28.3 g/dL (31.5-36.5); Mean Corpuscular Volume 99 fL (80-100); Mean Platelet Volume 10.7 fL (9.1-12.4); NEUTROPHILS ABSOLUTE AUTO 16.83 K/mm3 (1.96-9.15); NEUTROPHILS PERCENT AUTO 89 % (41-73); Platelet Count 254 K/mm3 (150-400); RDW Coefficient Variation 13.5 % (11.7-14.2); RDW Standard Deviation 49.9 fL (35.1-46.3); Red Blood Cell Count 4.93 M/mm3 (3.80-5.20); White Blood Cell Count 18.94 K/mm3 (4.00-11.30)
[2022-04-11 19:31] LABS: PCO2 Arterial 97.9 mmHg (35-45); PO2 Arterial 65.8 mmHg (80-100); pH Blood Arterial 7.34 (7.35-7.45)
[2022-04-11 19:34] LABS: Magnesium, Blood 2.3 mg/dL (1.6-2.4)
[2022-04-11 19:40] LABS: Alanine Aminotransfer (ALT/SGP 28 U/L (12-78); Albumin, Blood 3.8 g/dL (3.4-5.0); Albumin/Globulin Ratio 1.2 (0.8-1.8); Alk Phos 74 U/L (50-136); Anion Gap Unable to Calculate mmol/L (6-16); Aspartate Aminotrans (AST/SGOT 23 U/L (12-37); Bilirubin, Total 0.7 mg/dL (0.1-1.0); Blood Urea Nitrogen 18 mg/dL (8-24); Bun/Creatinine Ratio 53.7 (12.0-20.0); Calcium, Blood 8.8 mg/dL (8.5-10.1); Chloride, Blood 89 mmol/L (98-108); Creatinine, Blood 0.34 mg/dL (0.40-1.00); Globulin, Blood 3.1 g/dL (2.2-4.0); Glomerular Filtration Rate 127 (60-); Glucose, Blood 122 mg/dL (70-99); Potassium, Blood 4.6 mmol/L (3.5-5.5); Sodium, Blood 136 mmol/L (136-145); Total Protein, Blood 6.9 g/dL (6.4-8.2)
[2022-04-11 19:41] LABS: CO2, Blood >45 mmol/L (21-32)
[2022-04-12] MEDS ORDERED: PROM25 PO (00:16)
[2022-04-12] MEDS ORDERED: THEO300ERC PO (00:20)
[2022-04-12 00:32] LABS: Influenza A, PCR NEGATIVE (NEGATIVE); Influenza B, PCR NEGATIVE (NEGATIVE); Resp Syncytial Virus, PCR NEGATIVE (NEGATIVE); SARS-Cov-2 (COVID-19) PCR, MMC NEGATIVE (NEGATIVE)
[2022-04-12 03:51] LABS: BASOPHILS ABSOLUTE AUTO 0.01 K/mm3 (0.00-0.23); BASOPHILS PERCENT AUTO 0 % (0-2); EOSINOPHILS PERCENT AUTO 0 % (0-6); Hematocrit 42.4 % (33.0-51.0); Hemoglobin 12.3 g/dL (11.5-16.0); IMMATURE GRAN ABSOLUTE AUTO 0.08 K/mm3 (0.00-0.10); IMMATURE GRAN PERCENT AUTO 1 % (0-1); LYMPHOCYTES ABSOLUTE AUTO 0.48 K/mm3 (0.84-5.20); LYMPHOCYTES PERCENT AUTO 3 % (21-46); MONOCYTES ABSOLUTE AUTO 0.08 K/mm3 (0.16-1.47); MONOCYTES PERCENT AUTO 1 % (4-13); Mean Corpuscular Volume 97 fL (80-100); Mean Platelet Volume 10.2 fL (9.1-12.4); NEUTROPHILS ABSOLUTE AUTO 13.83 K/mm3 (1.96-9.15); NEUTROPHILS PERCENT AUTO 95 % (41-73); Platelet Count 216 K/mm3 (150-400); RDW Coefficient Variation 13.3 % (11.7-14.2); RDW Standard Deviation 47.7 fL (35.1-46.3); Red Blood Cell Count 4.39 M/mm3 (3.80-5.20); White Blood Cell Count 14.48 K/mm3 (4.00-11.30)
[2022-04-12 04:09] LABS: Blood Urea Nitrogen 18 mg/dL (8-24); Bun/Creatinine Ratio 58.8 (12.0-20.0); Calcium, Blood 9.1 mg/dL (8.5-10.1); Chloride, Blood 88 mmol/L (98-108); Creatinine, Blood 0.31 mg/dL (0.40-1.00); Glomerular Filtration Rate 130 (60-); Glucose, Blood 162 mg/dL (70-99); Potassium, Blood 4.8 mmol/L (3.5-5.5); Sodium, Blood 136 mmol/L (136-145)
[2022-04-12 04:11] LABS: Anion Gap Unable to Calculate mmol/L (6-16); CO2, Blood >45 mmol/L (21-32)
[2022-04-12 05:09] LABS: PCO2 Arterial 88.8 mmHg (35-45); PO2 Arterial 83.2 mmHg (80-100); pH Blood Arterial 7.37 (7.35-7.45)
--- NOTE | 2022-04-12 05:35 | NUR ---
MS. REYES WAS ADMITTED TO PCU 10 AT 23:38 YESTERDAY WITH DIAGNOSIS OF ACUTE ON CHRONIC HYPXIA AND HYPERCAPNIA. PATIENT WAS DISHEVELED UPON ARRIVAL, URINE INCONTINENCE IN UNDERWEAR/PAD, DIRT IN BED, BOTTOM OF FEET BLACKENED WITH DIRT. SHE PARTICIPATED SOMEWHAT IN THE ADMISSION PROCESS BUT OFTEN WOULD DRIFT OFF BETWEEN QUESTIONS. ADMISSION COMPLETED WITH INFORMATION FROM RECENT HOSPITAL STAY. PATIENT BROUGHT IN A ZIPLOC BAG OF PRESCRIPTION MEDICATIONS IN BOTTLES, 2 INHALERS AND A DISKUS. THESE HAVE BEEN SECURED IN THE PATIENT'S MEDICATION BIN. UNEVENTUL NIGHT WITH PATIENT SLEEPING THROUGHOUT THE NIGHT. SHE WAS UP TO THE BEDSIDE COMMODE THIS MORNING WITH MINIMAL ASSISTANCE. COLLECTION OF URINE SAMPLE UNSUCCESSFUL DUE TO MIXTURE OF STOOL AND URINE IN THE COLLECTION CONTAINER. PATIENT REMAINS NPO AND ON BIPAP THIS MORNING WITH SETTINGS UNCHANGED AT 22/12 AND FiO2 OF 50%. SOME IMPROVEMENT WITH ARTERIAL BLOOD GAS. SERUM CARBON DIOXIDE REMAINS ELEVATED AT CRITICAL LEVEL GREATER THAN 45. SEE LABS IN EMR FOR SPECIFICS. WILL CONTINUE TO MONITOR.
--- NOTE | 2022-04-12 16:09 | NUR ---
ASSUMED CARE AT 0700. A/A/OX4, SBA IN ROOM NEEDED. 5L O2 VIA NC WHEN NOT ON BIPAP. HOME BIPAP EVALUATED BY RT, PT WEARING WITHOUT DIFFICULTY. STATUS CHANGED TO MEDICAL, NO ACUTE CHANGES, REPORT TO MEDICAL FLOOR RN.
--- NOTE | 2022-04-12 16:30 | NUR ---
TRANSFER NOTE: PT A&O X4 AND PLEASANT. PT ARRIVED VIA BY CAT DRIVER AT 1630 . PT TRANSFERED FROM TO BED INDEPENDANTLY. PT HAD NO COMPLAINTS OF PAIN OR SOB. PT HAD A GREEN PLASTIC BAG WITH HOME MEDICATIONS. PT MEDICATIONS STORED IN LOCKED DRAW. PT REQUESTED SNACKS AND FOOD. PT OREINTATED TO ROOM, COMMUNICATION BROAD AND STAFF. PT REQUESTED A BREATHING TREATMENT AND RT WAS CALLED TO GIVE TREATMENT. PT IN BED WITH CALL LIGHT WITHIN REACH.
[2022-04-13 05:10] LABS: U Amphetamine Screen Not Detected; U Barbituate Screen Not Detected; U Benzodiazapine Screen Not Detected; U Buprenorphine Screen Not Detected; U Cannabinoids Screen DETECTED; U Cocaine Screen Not Detected; U Methadone Screen Not Detected; U Methamphetamine Screen Not Detected; U Opiates Screen Not Detected; U Oxycodone Screen Not Detected; U Phencyclidine Screen Not Detected; U Propoxyphene Screen Not Detected
[2022-04-13 05:24] LABS: Hematocrit 41.2 % (33.0-51.0); Mean Corpuscular HGB 27.5 pg (26.0-34.0); Mean Corpuscular HGB Conc 29.1 g/dL (31.5-36.5); Mean Corpuscular Volume 94 fL (80-100); Mean Platelet Volume 10.9 fL (9.1-12.4); Platelet Count 232 K/mm3 (150-400); RDW Coefficient Variation 13.5 % (11.7-14.2); RDW Standard Deviation 46.6 fL (35.1-46.3); Red Blood Cell Count 4.37 M/mm3 (3.80-5.20); White Blood Cell Count 18.65 K/mm3 (4.00-11.30)
[2022-04-13 06:07] LABS: Alanine Aminotransfer (ALT/SGP 19 U/L (12-78); Albumin, Blood 3.1 g/dL (3.4-5.0); Albumin/Globulin Ratio 1.1 (0.8-1.8); Alk Phos 58 U/L (50-136); Aspartate Aminotrans (AST/SGOT 13 U/L (12-37); Bilirubin, Total 0.5 mg/dL (0.1-1.0); Blood Urea Nitrogen 22 mg/dL (8-24); Bun/Creatinine Ratio 52.8 (12.0-20.0); Chloride, Blood 91 mmol/L (98-108); Creatinine, Blood 0.42 mg/dL (0.40-1.00); Globulin, Blood 2.7 g/dL (2.2-4.0); Glomerular Filtration Rate 121 (60-); Glucose, Blood 90 mg/dL (70-99); Potassium, Blood 4.5 mmol/L (3.5-5.5); Sodium, Blood 138 mmol/L (136-145); Total Protein, Blood 5.8 g/dL (6.4-8.2)
[2022-04-13 06:10] LABS: Anion Gap Unable to Calculate mmol/L (6-16); CO2, Blood >45 mmol/L (21-32)
--- NOTE | 2022-04-13 06:32 | NUR ---
SHIFT SUMMARY - NOC PATIENT AQX4 DURING SHIFT. SLEPT WELL WITH BIPAP IN PLACE. URINE TOX SAMPLE TO LAB. SPUTUM SAMPLE NEEDED. PT USES [facility] SBA. PT DENIES PAIN, NAUSEA, OR HERRON.
--- NOTE | 2022-04-13 12:24 | NUR ---
DISCHARGE SUMMARY: PT A&O X4 AND PLEASANT. PT IV REMOVED BY VERITO FONTANA. PT ASSISTED WITH DRESSING AND PACKING PERSONAL BELONGINGS BY VERITO FONTANA. PT EDUCATED OF DISEASE PROCESS AND FOLLOWING UP WITH PCP NEEDED. PT ESCORTED TO THE LOBBY VIA BY VERITO FONTANA. PT FAMILY WAS PRESENT TO TRANSPORT PT HOME.
== END 2022-04-13 12:11 | disposition home or self-care (01) | DRG 189 ==
LOC: ER 17:50 → PCU 17:51 → MEDS 04-12 12:37 → PCU 04-12 12:39 → MEDS 04-12 15:51
PROVIDERS: Emergency Medicine; Internal Medicine; ADMIT Family Medicine
PROC: 5A09357 Assistance with Respiratory Ventilation, Less than 24 Consecutive Hours, Continuous Positive Airway Pressure (ICD-10-PCS; principal; 2022-04-12)
DX: J96.21 Acute and chronic respiratory failure with hypoxia (principal); R65.10 Systemic inflammatory response syndrome (SIRS) of non-infectious origin without acute organ dysfunction; J96.22 Acute and chronic respiratory failure with hypercapnia; J43.9 Emphysema, unspecified; E87.6 Hypokalemia; F15.10 Other stimulant abuse, uncomplicated; F17.210 Nicotine dependence, cigarettes, uncomplicated; G47.33 Obstructive sleep apnea (adult) (pediatric); Z20.822 Contact with and (suspected) exposure to COVID-19; F31.9 Bipolar disorder, unspecified; G43.909 Migraine, unspecified, not intractable, without status migrainosus; F41.8 Other specified anxiety disorders; D72.829 Elevated white blood cell count, unspecified; Z88.5 Allergy status to narcotic agent; Z88.0 Allergy status to penicillin; Z88.7 Allergy status to serum and vaccine; Z79.51 Long term (current) use of inhaled steroids; Z79.52 Long term (current) use of systemic steroids; Z79.899 Other long term (current) drug therapy; Z99.81 Dependence on supplemental oxygen; Z90.49 Acquired absence of other specified parts of digestive tract; Z98.890 Other specified postprocedural states; Z90.710 Acquired absence of both cervix and uterus; Z90.722 Acquired absence of ovaries, bilateral; Z87.01 Personal history of pneumonia (recurrent)
CPT/HCPCS: 0241U; 36415; 36600; 71045; 80048; 80053; 82803; 83735; 83880; 84484; 85025; 85027; 93005; 93010; 94640; 94644; 94660; 94664; 94760; 94762; 96372; 96376; A9270; G0378; J1650; J2405; J2930; J7512

== ENCOUNTER 2022-10-15 22:47 | Emergency (ER) | payer OTHER ==
[~2022-10-15] VITALS: Ht 162.6 cm; Wt 45.4 kg
[~2022-10-15 22:47] MED LIST changes: +PROM25 PO; +THEO300ERC PO
[2022-10-15 23:41] LABS: BASOPHILS ABSOLUTE AUTO 0.05 K/mm3 (0.00-0.23); BASOPHILS PERCENT AUTO 0 % (0-2); EOSINOPHILS ABSOLUTE AUTO 0.09 K/mm3 (0.00-0.68); EOSINOPHILS PERCENT AUTO 1 % (0-6); Hematocrit 44.1 % (33.0-51.0); Hemoglobin 12.6 g/dL (11.5-16.0); IMMATURE GRAN ABSOLUTE AUTO 0.03 K/mm3 (0.00-0.10); IMMATURE GRAN PERCENT AUTO 0 % (0-1); LYMPHOCYTES ABSOLUTE AUTO 1.21 K/mm3 (0.84-5.20); LYMPHOCYTES PERCENT AUTO 10 % (21-46); MONOCYTES ABSOLUTE AUTO 0.88 K/mm3 (0.16-1.47); MONOCYTES PERCENT AUTO 7 % (4-13); Mean Corpuscular HGB 27.9 pg (26.0-34.0); Mean Corpuscular HGB Conc 28.6 g/dL (31.5-36.5); Mean Corpuscular Volume 98 fL (80-100); Mean Platelet Volume 11.5 fL (9.1-12.4); NEUTROPHILS ABSOLUTE AUTO 10.41 K/mm3 (1.96-9.15); NEUTROPHILS PERCENT AUTO 82 % (41-73); Platelet Count 133 K/mm3 (150-400); RDW Standard Deviation 46.6 fL (35.1-46.3); Red Blood Cell Count 4.52 M/mm3 (3.80-5.20); White Blood Cell Count 12.67 K/mm3 (4.00-11.30)
[2022-10-16 00:02] LABS: Alanine Aminotransfer (ALT/SGP 19 U/L (12-78); Albumin, Blood 3.5 g/dL (3.4-5.0); Albumin/Globulin Ratio 1.1 (0.8-1.8); Alk Phos 70 U/L (50-136); Aspartate Aminotrans (AST/SGOT 10 U/L (12-37); Bilirubin, Total 0.6 mg/dL (0.1-1.0); Blood Urea Nitrogen 16 mg/dL (8-24); Bun/Creatinine Ratio 49.7 (12.0-20.0); Calcium, Blood 9.5 mg/dL (8.5-10.1); Chloride, Blood 93 mmol/L (98-108); Creatinine, Blood 0.32 mg/dL (0.40-1.00); Globulin, Blood 3.3 g/dL (2.2-4.0); Glomerular Filtration Rate 129 (60-); Glucose, Blood 144 mg/dL (70-99); Sodium, Blood 140 mmol/L (136-145); Total Protein, Blood 6.8 g/dL (6.4-8.2)
[2022-10-16 00:04] LABS: Anion Gap Unable to Calculate mmol/L (6-16)
[2022-10-16 00:05] LABS: CO2, Blood >45 mmol/L (21-32)
[2022-10-16] MEDS ORDERED: AZIT250 PO (03:09)
[2022-10-16] MEDS ORDERED: PRED20 PO (03:09)
[2022-10-16] MEDS ORDERED: IPRAT-ALBUT 0.5-3 ML INH (03:09)
[2022-10-16 03:30] VITALS: BP 120/78
== END 2022-10-16 03:44 | disposition home or self-care (01) ==
LOC: ER 22:47
PROVIDERS: Student in an Organized Health Care Education/Training Program
DX: J44.1 Chronic obstructive pulmonary disease with (acute) exacerbation (principal); J96.11 Chronic respiratory failure with hypoxia; Z88.0 Allergy status to penicillin; Z88.5 Allergy status to narcotic agent; Z88.7 Allergy status to serum and vaccine; Z79.52 Long term (current) use of systemic steroids; Z79.899 Other long term (current) drug therapy; Z87.891 Personal history of nicotine dependence
CPT/HCPCS: 71046; 80053; 84145; 85025; 93005; 93010; 94644; 94664; 96374; 99285-25; A9270; J2930; J7030

== ENCOUNTER 2023-01-14 23:46 | Inpatient (IN) | payer OTHER ==
[~2023-01-14] VITALS: Ht 162.6 cm; Wt 45.4 kg
[2023-01-15] VITALS (40 sets, daily range): BP systolic 96–143; BP diastolic 58–107
[2023-01-15 00:23] LABS: PO2 Arterial 93.2 mmHg (80-100)
[2023-01-15 00:24] LABS: PCO2 Arterial > 104 mmHg (35-45); pH Blood Arterial 7.19 (7.35-7.45)
[2023-01-15 00:28] LABS: BASOPHILS ABSOLUTE AUTO 0.03 K/mm3 (0.00-0.23); BASOPHILS PERCENT AUTO 0 % (0-2); EOSINOPHILS ABSOLUTE AUTO 0.06 K/mm3 (0.00-0.68); EOSINOPHILS PERCENT AUTO 1 % (0-6); Hematocrit 44.4 % (33.0-51.0); Hemoglobin 12.4 g/dL (11.5-16.0); IMMATURE GRAN ABSOLUTE AUTO 0.05 K/mm3 (0.00-0.10); IMMATURE GRAN PERCENT AUTO 0 % (0-1); LYMPHOCYTES ABSOLUTE AUTO 0.67 K/mm3 (0.84-5.20); LYMPHOCYTES PERCENT AUTO 6 % (21-46); MONOCYTES ABSOLUTE AUTO 0.85 K/mm3 (0.16-1.47); MONOCYTES PERCENT AUTO 7 % (4-13); Mean Corpuscular HGB 28.1 pg (26.0-34.0); Mean Corpuscular HGB Conc 27.9 g/dL (31.5-36.5); Mean Corpuscular Volume 101 fL (80-100); Mean Platelet Volume 10.6 fL (9.1-12.4); NEUTROPHILS ABSOLUTE AUTO 10.23 K/mm3 (1.96-9.15); NEUTROPHILS PERCENT AUTO 86 % (41-73); Platelet Count 126 K/mm3 (150-400); RDW Coefficient Variation 12.4 % (11.7-14.2); RDW Standard Deviation 46.9 fL (35.1-46.3); Red Blood Cell Count 4.42 M/mm3 (3.80-5.20); White Blood Cell Count 11.89 K/mm3 (4.00-11.30)
[2023-01-15 00:55] LABS: Base Excess Venous 28.7 mmol/L; Bicarbonate Venous 47.3 mmol/L (24.0-30.0)
[2023-01-15 00:56] LABS: PCO2 Venous > 104 mmHg (38-42); pH Blood Venous 7.24 (7.34-7.37)
[2023-01-15 00:57] LABS: Alanine Aminotransfer (ALT/SGP 17 U/L (12-78); Albumin, Blood 3.6 g/dL (3.4-5.0); Alk Phos 81 U/L (50-136); Anion Gap Unable to Calculate mmol/L (6-16); Aspartate Aminotrans (AST/SGOT 17 U/L (12-37); Bilirubin, Total 0.3 mg/dL (0.1-1.0); Blood Urea Nitrogen 11 mg/dL (8-24); Bun/Creatinine Ratio 34.7 (12.0-20.0); CO2, Blood >45 mmol/L (21-32); Calcium, Blood 9.4 mg/dL (8.5-10.1); Chloride, Blood 89 mmol/L (98-108); Creatinine, Blood 0.32 mg/dL (0.40-1.00); Globulin, Blood 3.5 g/dL (2.2-4.0); Glomerular Filtration Rate 128 (60-); Glucose, Blood 148 mg/dL (70-99); Potassium, Blood 4.3 mmol/L (3.5-5.5); Sodium, Blood 137 mmol/L (136-145); Total Protein, Blood 7.1 g/dL (6.4-8.2)
[2023-01-15 02:56] LABS: PO2 Arterial 105 mmHg (80-100); pH Blood Arterial 7.16 (7.35-7.45)
[2023-01-15 02:57] LABS: PCO2 Arterial > 104 mmHg (35-45)
[2023-01-15 05:58] LABS: PO2 Arterial 64.5 mmHg (80-100); pH Blood Arterial 7.23 (7.35-7.45)
[2023-01-15 05:59] LABS: PCO2 Arterial > 104 mmHg (35-45)
--- NOTE | 2023-01-15 06:53 | NUR ---
ARRIVED FROM ER AT 0230 ARRIVED ON BIPAP, SOMNOLENT BUT AROUSABLE AND FOLLOWS ALL COMMANDS. OPENS EYES TO VOICE. BIPAP SETTING TITRATED TO KEEP SPO2 88-92%. MINIMAL TO NO AIR MOVEMENT HEARD IN LUNGS, NOTIFIED DR. KEY, 1 HOUR NEB ORDERED AND ADMINISTERED BY RT. MINIMAL IMPROVEMENT. PH THIS AM IMPROVING ALTHOUGH CO2 CONTINUES TO BE > 104. ST, BP STABLE. NPO DUE TO SOMNOLENCE. INCONTINENT OF URINE IN ER, HAS NOT VOIDED SINCE ADMIT TO ICU. NO BM. SKIN INTACT. NAILBEDS DUSKY. PIV X2, SL. NO FAMILY AT BEDSIDE. CRITICAL CARE CONSULT PLACED.
[2023-01-15 08:11] LABS: PCO2 Arterial < 104 mmHg (35-45); PO2 Arterial 56.9 mmHg (80-100); pH Blood Arterial 7.22 (7.35-7.45)
--- NOTE | 2023-01-15 08:43 | NUR ---
ASSUMED CARE BEDSIDE REPORT FROM TRAE MARVIN AT 0700. PT LAYING IN BED. BIPAP IN PLACE, DR LEWIS MADE ADJUSTMENTS TO SETTINGS DURING ROUNDS. 25/12/50%. TV INCREASE TO 320-350'S. LUNGS TIGHT THROUGHOUT. O2 SATS 88-94%. PT RESPONSES TO PAINFUL STIMULI, OPENS EYES, RETURNS TO SLEEP WHEN UNDISTURBED. DOES NOT FOLLOW COMMANDS. DOES NOT WITHDRAW EXT TO PAIN. ST ON MONITOR, RATE 110'S. BP STABLE. ABD ROUND, SOFT, NON TENDER. HYPOACTIVE BT. ATTENDS IN PLACE. PACO2 >104, PT CHRONICALLY HIGH. WILL MONITOR CLOSELY.
--- NOTE | 2023-01-15 17:29 | NUR ---
SHIFT SUMMARY NO ACUTE CHANGES THIS SHIFT. REMAINS BIPAP DEPT, AWAITING HOME TRILOGY, OK PER DR LEWIS TO PUT PT ON HOME MACHINE WHEN IT ARRIVES. BIPAP SETTINGS //50% c TV 300-360'S. LUNGS TIGHT THROUGHOUT. PT PROTECTING AIRWAY. RESPONSIVE TO VERBAL STIMULI, FOLLOWS SIMPLE COMMANDS. IMPULSIVE. PICKS AT LINES AND TUBES, ABLE TO REDIRECT AT THIS TIME. GARBLED SPEECH, DIFFICULT TO UNDERSTAND. ST, RATE 110-120'S. BP STABLE. MAEW. ATTENDS IN PLACE, INCONTINENT. FAMILY UPDATE ON CARE PLAN AND PT CONDITION. WILL CONTINUE TO MONITOR UNTIL REPORT TO ONCOMING NURSE.
--- NOTE | 2023-01-15 22:11 | NUR ---
ASSUMED CARE OF PT AT 1915 RESTLESS AND MOVING ABOUT THE BED. VERBALIZES BUT SPEECH MUFFLED. FOLLOWS ALL COMMANDS. ST, BP STABLE. MINMAL AIR MOVEMENT HEARD WHEN AUSCULTATING BREATH SOUNDS. FAMILY DELIVERED TRILOGY, RT SWITCHED PT FROM BIPAP TO HOME TRILOGY. 1 EPISODE OF SUSTAINED DESATURATION DOWN TO 69%, TITRATED FIO2 UP, REPOSITIONED MASK AND ADMINISTERED ATIVAN IV TO HELP PT RELAX AND BREATHE EASIER. FIO2 CAME UP TO 88% AND THE PT WENT TO SLEEP. HYPOACTIVE BOWEL SOUNDS, NO BM SINCE ADMIT. INCONTINENT OF URINE AT TIMES, BRIEF IN PLACE. SKIN INTACT, PIV X2, BOTH SL, BOTH FLUSH WELL. FAMILY ONLY STAYED A FEW MINUTES DURING SHIFT CHANGE WHEN DROPPING OFF TRILOGY. RN TO CONTINUE TO MONITOR.
[2023-01-16] VITALS (45 sets, daily range): BP systolic 88–124; BP diastolic 66–88
[2023-01-16 03:52] LABS: BASOPHILS PERCENT AUTO 0 % (0-2); EOSINOPHILS PERCENT AUTO 0 % (0-6); Hematocrit 40.1 % (33.0-51.0); IMMATURE GRAN ABSOLUTE AUTO 0.02 K/mm3 (0.00-0.10); IMMATURE GRAN PERCENT AUTO 0 % (0-1); LYMPHOCYTES ABSOLUTE AUTO 0.35 K/mm3 (0.84-5.20); LYMPHOCYTES PERCENT AUTO 6 % (21-46); MONOCYTES ABSOLUTE AUTO 0.17 K/mm3 (0.16-1.47); MONOCYTES PERCENT AUTO 3 % (4-13); Mean Corpuscular HGB 28.1 pg (26.0-34.0); Mean Corpuscular HGB Conc 27.4 g/dL (31.5-36.5); Mean Corpuscular Volume 102 fL (80-100); Mean Platelet Volume 11.4 fL (9.1-12.4); NEUTROPHILS ABSOLUTE AUTO 5.58 K/mm3 (1.96-9.15); NEUTROPHILS PERCENT AUTO 91 % (41-73); Platelet Count 117 K/mm3 (150-400); RDW Coefficient Variation 12.5 % (11.7-14.2); RDW Standard Deviation 46.9 fL (35.1-46.3); Red Blood Cell Count 3.92 M/mm3 (3.80-5.20); White Blood Cell Count 6.12 K/mm3 (4.00-11.30)
[2023-01-16 04:23] LABS: Alanine Aminotransfer (ALT/SGP 16 U/L (12-78); Albumin, Blood 3.1 g/dL (3.4-5.0); Albumin/Globulin Ratio 0.9 (0.8-1.8); Alk Phos 57 U/L (50-136); Anion Gap Unable to Calculate mmol/L (6-16); Aspartate Aminotrans (AST/SGOT 11 U/L (12-37); Bilirubin, Total 0.3 mg/dL (0.1-1.0); Blood Urea Nitrogen 20 mg/dL (8-24); Bun/Creatinine Ratio 68.3 (12.0-20.0); CO2, Blood >45 mmol/L (21-32); Calcium, Blood 9.3 mg/dL (8.5-10.1); Chloride, Blood 91 mmol/L (98-108); Creatinine, Blood 0.29 mg/dL (0.40-1.00); Globulin, Blood 3.3 g/dL (2.2-4.0); Glomerular Filtration Rate 131 (60-); Glucose, Blood 131 mg/dL (70-99); Potassium, Blood 4.5 mmol/L (3.5-5.5); Sodium, Blood 141 mmol/L (136-145); Total Protein, Blood 6.4 g/dL (6.4-8.2)
--- NOTE | 2023-01-16 05:07 | NUR ---
END OF SHIFT SUMMARY PT HAS SLEPT OFF AND ON. REQUIRED ATIVAN IVP TO HELP WITH RESTLESSNESS AND PULLING MASK OFF. HAS HOME TRILOGY ON, TOLERATING WELL, 15 LITERS O2 BLED IN TO MAINTAIN O2 SAT 88-92%. ST, BP WNL. NPO SINCE ADMIT DUE TO RESPIRATORY STATUS AND SOMNOLENCE. NO BM BUT PASSING FLATUS. BRIEF ON, INCONTINENT AT TIMES, USED CALL LIGHT THIS AM AND REQUESTED BEDPAN APPROPRIATELY. SKIN INTACT. PIV X2, SL. NO FAMILY AT BEDSIDE. RN TO CONTINUE TO MONITOR
--- NOTE | 2023-01-16 08:05 | NUR ---
ASSUMED CARE REPORT FROM TRAE MARVIN AT 0700. PT LAYING IN BED, HOME TRILOGY IN USE. 12L BLEED IN. TRIALED ON HFNC, DESATED QUICKLY. RETURNED TO HOME TRILOGY. LUNGS TIGHT THROUGHOUT. NON PRODUCTIVE COUGH. PT RESPONSIVE TO VERBAL STIMULI. CONTINUES TO BE DIFFICULT TO UNDERSTAND. FOLLOWS SIMPLE COMMANDS. RETURNS TO REST WHEN UNDISTURBED. ST ON MONITOR, RATE 100-120'S. BP STABLE. ATTENDS IN PLACE. CALL LIGHT IN REACH. WILL CONTINUE TO MONITOR.
--- NOTE | 2023-01-16 18:01 | NUR ---
SHIFT SUMMARY NO ACUTE CHANGES THIS SHIFT. REMAINED ON HOME TRILOGY c 10-15L BLEED IN. TRIALED ON HFNC, ONLY TOLERATED FOR 2-3 MINUTES BEFORE DESAT TO LOW 80'S. LUNGS TIGHT, HACKING COUGH. SPUTUM SENT TO LAB. PT FOLLOWS SIMPLE DIRECTIONS, ABLE TO MAKE NEEDS KNOWN. ST, RATE 100-110'S. BP STABLE. PT ABLE TO TOLERATE PO FLUIDS AND LIQUID FOOD DURING BREAK FROM TRILOGY. PIV X 2. WILL CONTINUE TO MONITOR UNTIL REPORT TO ONCOMING NURSE.
--- NOTE | 2023-01-16 20:50 | NUR ---
ASSUMPTION OF CARE/ASSESSMENT: ASSUMPTION OF CARE AT 1900. PT A&O X 4 AND FOLLOWING DIRECTIONS. PT CALLED THIS RN INTO RM WITH C/O ANXIETY AND MEDICATED WITH PRN ATIVAN. PT CURRENTLY ON HOME TRILOGY WITH 11L BLEED IN; SPO2 96< AND LUNGS SOUND TIGHT WITH EXP. WHEEZE IN RLL. PT ST ON MONITOR WITH HR 110-120'S, SBP 120'S; PT DENIES CHEST PAIN/PRESSURE AT THIS TIME. HYPOACTIVE BOWEL SOUNDS IN ALL FOUR QUADRANTS, ABD SOFT, NON-TENDER. PT STATES THAT SHE IS VERY HUNGRY, CURRENTLY ON FULL LIQUID DIET; CLEAR ENSURE PROVIDED AT THIS TIME. SKIN INTACT, PPP X 4. PT INDEPENDENT WITH BED MOBILITY. BED LOWERED, CALL LIGHT IN REACH.
[2023-01-17] VITALS (25 sets, daily range): BP systolic 93–119; BP diastolic 63–82
[2023-01-17 03:49] LABS: Hematocrit 38.2 % (33.0-51.0); Hemoglobin 10.9 g/dL (11.5-16.0); Mean Corpuscular HGB 28.2 pg (26.0-34.0); Mean Corpuscular HGB Conc 28.5 g/dL (31.5-36.5); Mean Corpuscular Volume 99 fL (80-100); Mean Platelet Volume 10.8 fL (9.1-12.4); Platelet Count 140 K/mm3 (150-400); RDW Coefficient Variation 12.4 % (11.7-14.2); RDW Standard Deviation 45.1 fL (35.1-46.3); Red Blood Cell Count 3.86 M/mm3 (3.80-5.20); White Blood Cell Count 5.91 K/mm3 (4.00-11.30)
[2023-01-17 04:27] LABS: BAND PERCENT MAN 5 % (0-8); BASOPHILS PERCENT MAN 0 % (0-2); EOSINOPHILS PERCENT MAN 0 % (0-6); LYMPHOCYTES ABSOLUTE MAN 0.29 K/mm3 (0.84-5.20); LYMPHOCYTES PERCENT MAN 5 % (21-46); MONOCYTES ABSOLUTE MAN 0.05 K/mm3 (0.16-1.47); MONOCYTES PERCENT MAN 1 % (4-13); NEUTROPHILS ABSOLUTE MAN 5.55 K/mm3 (1.96-9.15); SEG NEUTROPHILS PERCENT MAN 89 % (41-73); TOTAL CELLS COUNTED 100
--- NOTE | 2023-01-17 05:57 | NUR ---
SHIFT SUMMARY: NO ACUTE CHANGES; VSS THROUGHOUT THE SHIFT. PT ABLE TO SLEEP FOR MAJORITY OF THE NIGHT. PT REMAINS VERY HUNGRY, MULTIPLE ENSURES PROVIDED. PT MAINTAINS BED MOBILITY AND HAS BEEN PARTITIPATING IN ALL PT CARE. BED LOWERED, CALL LIGHT IN REACH.
[2023-01-17 06:53] LABS: Alanine Aminotransfer (ALT/SGP 17 U/L (12-78); Alk Phos 52 U/L (50-136); Aspartate Aminotrans (AST/SGOT 13 U/L (12-37); Bilirubin, Total 0.2 mg/dL (0.1-1.0); Blood Urea Nitrogen 22 mg/dL (8-24); Bun/Creatinine Ratio 57.3 (12.0-20.0); Chloride, Blood 88 mmol/L (98-108); Creatinine, Blood 0.38 mg/dL (0.40-1.00); Globulin, Blood 3.1 g/dL (2.2-4.0); Glomerular Filtration Rate 123 (60-); Glucose, Blood 131 mg/dL (70-99); Potassium, Blood 3.7 mmol/L (3.5-5.5); Sodium, Blood 140 mmol/L (136-145); Total Protein, Blood 6.1 g/dL (6.4-8.2)
[2023-01-17 06:54] LABS: Anion Gap Unable to Calculate mmol/L (6-16)
[2023-01-17 06:55] LABS: CO2, Blood >45 mmol/L (21-32)
[2023-01-17 10:03] LABS: Bicarbonate Venous 50.5 mmol/L (24.0-30.0); PCO2 Venous 96.7 mmHg (38-42); pH Blood Venous 7.37 (7.34-7.37)
[2023-01-17 10:04] LABS: Base Excess Venous 30 mmol/L
--- NOTE | 2023-01-17 11:51 | NUR ---
Brief supportive visit this AM. Spoke with RN Clinical Coordinator Arabella and discussed case prior to Pt visit. Pt resting in bed and wearing her home CPAP. Pt difficult to hear and understand due to CPAP mask. Pt denies pain and nausea. She appear moderately dyspneic and reports moderate anxiety. Reviewed plan of care and offered therapeutic listening. Pt reports having a 16 year old daughter and a step son but was difficult to understand his age when stated by the Pt. Continued supportive visit to establish rapport. Pt requesting something to eat. Pt agreeable to continued PC visits. Relayed Pt's request to Primary RN for food. Plan: Advanced Care Planning with Pt when she is feeling a little better. Palliative Care will remain available
--- NOTE | 2023-01-17 18:03 | NUR ---
SUMMARY PT RESTING IN BED. A/O X4 ALL DAY. ABLE TO USE CALL LIGHT APPROPRIATELY. PT WAS SWITCHED FROM HOME TRILOGY BIPAP TO AIRVO FOR A FEW HOURS TODAY AND DID WELL. WAS ABLE TO EAT AND DRINK. PT LIKES ENSURE AND DRANK SEVERAL TODAY. 1 PERSON STANDBY ASSIST TO BSC A FEW TIMES TODAY. STEADY ON FEET JUST NEEDS HELP WITH LINES. SAT UP IN RECLINER CHAIR MOST OF THE DAY. STATUS CHANGED TO PCU. NO SIGN OF DISTRESS.
[2023-01-18 03:54] LABS: Hematocrit 38.4 % (33.0-51.0); Hemoglobin 10.6 g/dL (11.5-16.0); Mean Corpuscular HGB 27.9 pg (26.0-34.0); Mean Corpuscular HGB Conc 27.6 g/dL (31.5-36.5); Mean Corpuscular Volume 101 fL (80-100); Mean Platelet Volume 10.9 fL (9.1-12.4); Platelet Count 143 K/mm3 (150-400); RDW Coefficient Variation 12.3 % (11.7-14.2); RDW Standard Deviation 45.7 fL (35.1-46.3); White Blood Cell Count 8.19 K/mm3 (4.00-11.30)
[2023-01-18 04:32] LABS: Alanine Aminotransfer (ALT/SGP 20 U/L (12-78); Albumin, Blood 2.9 g/dL (3.4-5.0); Alk Phos 55 U/L (50-136); Aspartate Aminotrans (AST/SGOT 5 U/L (12-37); Bilirubin, Total 0.2 mg/dL (0.1-1.0); Blood Urea Nitrogen 17 mg/dL (8-24); Bun/Creatinine Ratio 50.7 (12.0-20.0); Calcium, Blood 8.4 mg/dL (8.5-10.1); Chloride, Blood 93 mmol/L (98-108); Creatinine, Blood 0.34 mg/dL (0.40-1.00); Globulin, Blood 2.9 g/dL (2.2-4.0); Glomerular Filtration Rate 126 (60-); Glucose, Blood 125 mg/dL (70-99); Potassium, Blood 4.6 mmol/L (3.5-5.5); Sodium, Blood 141 mmol/L (136-145); Total Protein, Blood 5.8 g/dL (6.4-8.2)
[2023-01-18 04:36] LABS: Anion Gap Unable to Calculate mmol/L (6-16)
[2023-01-18 04:37] LABS: CO2, Blood >45 mmol/L (21-32)
--- NOTE | 2023-01-18 04:59 | NUR ---
EOS NOTE: RECEIVED PATIENT FROM ICU AT 0015. PATIENT IS ON 11L ON HOME TRILOGY MACHINE WITH MASK. BASELINE 5-8L. A/OX4, EASILY SOB, ABLE TO GET UP TO BEDSIDE COMMODE BY SELF WITH STAND/PIVOT ONLY. BREATH SOUNDS ARE TIGHT AND WHEEZY. ST ON TELE MOSTLY LOW 110'S, JUMPED UP TO 130'S A FEW TIMES BUT DID NOT SUSTSAIN. FULL LIQUID DIET, PATIENT STATED SHE IS REALLY HUNGRY AND HOPING TO ADVANCE DIET. SKIN APPEARS TO BE FRAGILE FOR PT AGE. TAKES PO MEDS WELL. VSS, WILL CONTINUE TO MONITOR. PCO2>45, AWARE.
[2023-01-18 05:40] LABS: BAND PERCENT MAN 1 % (0-8); BASOPHILS PERCENT MAN 0 % (0-2); EOSINOPHILS PERCENT MAN 0 % (0-6); LYMPHOCYTES % ATYPICAL MANUAL 1 % (0-0); LYMPHOCYTES ABSOLUTE MAN 0.57 K/mm3 (0.84-5.20); LYMPHOCYTES PERCENT MAN 6 % (21-46); METAMYELOCYTE ABSOLUTE MAN 0.08 K/mm3 (0.00-0.00); METAMYELOCYTE PERCENT MAN 1 % (0-0); MONOCYTES PERCENT MAN 0 % (4-13); NEUTROPHILS ABSOLUTE MAN 7.53 K/mm3 (1.96-9.15); SEG NEUTROPHILS PERCENT MAN 91 % (41-73); TOTAL CELLS COUNTED 100
[2023-01-18 07:37] VITALS: BP 113/81
--- NOTE | 2023-01-18 10:33 | NUR ---
CARE ASSUMPTION This Rn assumed care at 0700. vital signs stable. tele sinus tach. spo2 94% on home trilogy with a 12l bleed in. patient is alert and oriented x4. patient reports no chest pain/pressure, shortness of breath or pain. see shift assessment for further detials. MD Tucker in to see patient this am and discussed plan of care. plan of care is up to date. spoke with respiratory care and going to switch patient to airvo at lunch to see if patient can tolerate and eat a regular diet, if not diet will switch back to liquid and put patient back on triology.
[2023-01-18 10:57] VITALS: BP 116/77
[2023-01-18 15:42] VITALS: BP 125/70
--- NOTE | 2023-01-18 16:57 | NUR ---
shift summary patient neuro remains unchaged. vital signs stable. patient on airvo for a few hours today and then went back on cpap. no acute changes. plan remains up to date.m
[2023-01-18 20:40] VITALS: BP 123/88
[2023-01-18 23:55] VITALS: BP 124/77
[2023-01-19 03:45] VITALS: BP 122/77
--- NOTE | 2023-01-19 05:48 | NUR ---
End of shift note. Pt has rested all shift. Pt has requested to remain on home Trilogy all shift. Pt has had multiple episodes of desating into the 80s. She has been taking her mask of to drink and the fit/seal has been a struggle. Pt has been OOB to the BSC to void. Fair PO intake, multiple ensures. Pt is able to make needs known, call light is within reach.
[2023-01-19 07:28] VITALS: BP 108/91
[2023-01-19 11:16] VITALS: BP 127/70
[2023-01-19 15:30] VITALS: BP 122/71
--- NOTE | 2023-01-19 18:41 | NUR ---
SHIFT SUMMARY: PT A&Ox4, ANSWERS QUESTIONS APPROPRIATELY, COOPERATIVE W/CARE AND ABLE TO MAKE NEEDS KNOWN. PT REPORTS NO IMPROVEMENT TO SOB, ABLE TO STAY ON HIFLO HUMIDIFIED NC (AIRVO) FOR MAJORITY OF THE AFTERNOON BEFORE SWITCHING BACK TO HOME TRILOGY MASK, O2 SATS >90%. O2 SATS DROP DOWN TO MID 80% RANGE, BUT UPON STAFF ENTERING ROOM PT NOTED TO BE FIDGETING STRAPS/FIT OF MASK MULTIPLE TIMES THIS SHIFT DESPITE EDUCATION AND REMINDERS. PT DENIES CP, SIN TACH ON MONITOR, 110-120 BPM AT REST INCREASING TO 130s W/ACTIVITY. SBA TO BSC OR RECLINER, TOLERATING WELL. AT THIS TIME, PT RESTING QUIETLY IN BED W/CALL LIGHT IN REACH. WILL CONTINUE TO MONITOR AND TREAT ACCORDINGLY UNTIL CHANGE OF SHIFT. PT DENIES POSSESSION OR INTENT TO USE IGNITABLE SOURCES T/OUT THIS SHIFT.
[2023-01-19 20:15] VITALS: BP 124/76
[2023-01-20] VITALS (7 sets, daily range): BP systolic 115–137; BP diastolic 68–101
--- NOTE | 2023-01-20 05:47 | NUR ---
End of shift note. Pt has struggled to maintain her O2 all shift. O2 bleeding into bipap was increased. At the beginning of the shift, RN was in the room every 10 minutes. RT has been in the room to help adjust mask multiple times. Pt desperately needs a replacement mask, possibly need to contact home O2 provider today. Pt reported she was very anxious at HS, PRN Ativan was given but its only effect seemed to cause some hallucinations. Pt will pull/tug at mask. Pt is able to make needs know, call light is within reach.
--- NOTE | 2023-01-20 18:24 | NUR ---
SHIFT SUMMARY: PT HAS BEEN LETHARGIC, ALERT WHEN STAFF IN ROOM, ORIENTEDx4, ABLE TO MAKE NEEDS KNOWN. O2 SATS >89%, PT ON HOME TRILOGY UNIT W/ 13L BLEED IN MAJORITY OF THE DAY AND WILL SPEND TIME ON THE AIRVO FOR MEALS, TOLERATING WELL. SIN TACH CONTINUE ON MONITOR W/RATE 110-120 BPM, PT DENIES CP. 1 PERSON ASSIST TO/FROM BSC. PT EVALUATED BY DENTAL HYGIENIST TODAY W/CONCERN ABOUT WHITE SPOTS IN MOUTH, PROVIDER NOTIFIED AND ORDERS PLACED. PT HAS BEEN NEGATIVE FOR IGNITABLE SOURCES/RISK WHEN ASSESSED T/OUT THIS SHIFT. AT THIS TIME, PT RESTING QUIETLY IN ROOM, WILL CONTINUE TO MONITOR AND TREAT ACCORDINGLY UNTIL CHANGE OF SHIFT.
--- NOTE | 2023-01-20 21:41 | NUR ---
SAFETY & EDUCATION PT & FAMILY EDUCATED RE: IGNITION SOURCES AND RISK OF INJURY WHILE OXYGEN IS IN USE. PT DENIES SMOKING & PT AND FAMILY VERBALIZE UNDERSTANDING.
[2023-01-21 03:50] VITALS: BP 119/73
--- NOTE | 2023-01-21 05:19 | NUR ---
SHIFT SUMMARY SEE PREVIOUS NOTE. PT A&Ox4, CALLS AND COMMUNICATES NEEDS APPROPRIATELY. BP STABLE, SINUS-ST 80-110's, DENIES CP/PRESSURE. SpO2> 92% ON HOME TRIOLOGY WITH 15L BLEED IN, DENIES SOB. CONTINENT OF URINE, 1 ASSIST TO BSC. NO BM THIS SHIFT. NO OTHER EVENTS, WILL REPORT TO ONCOMING RN.
[2023-01-21 07:43] VITALS: BP 121/89
[2023-01-21 09:08] LABS: Hematocrit 42.2 % (33.0-51.0); Hemoglobin 11.4 g/dL (11.5-16.0)
[2023-01-21 09:21] LABS: Blood Urea Nitrogen 24 mg/dL (8-24); Bun/Creatinine Ratio 96.8 (12.0-20.0); Calcium, Blood 8.8 mg/dL (8.5-10.1); Chloride, Blood 86 mmol/L (98-108); Creatinine, Blood 0.25 mg/dL (0.40-1.00); Glomerular Filtration Rate 136 (60-); Glucose, Blood 142 mg/dL (70-99); Potassium, Blood 4.9 mmol/L (3.5-5.5); Sodium, Blood 140 mmol/L (136-145)
[2023-01-21 09:22] LABS: Anion Gap Unable to Calculate mmol/L (6-16)
[2023-01-21 09:23] LABS: CO2, Blood >45 mmol/L (21-32)
[2023-01-21 11:39] VITALS: BP 123/68
--- NOTE | 2023-01-21 13:39 | NUR ---
Spiritual Care Visit | Pt. request. Pt, is awake and displaying evidence of thrashing in her bed when she welcomes my visit. Pt. displays evidence of remembering this teletype mechanic from a previous hospitalization. It is difficult to understand the Pt. because of her Bi-pap, but Pt. does verbalize the question and statement, "Do you think I am going to ? I don't wnat to ." With a calming presence encouraged the Pt. Payed with Pt. though during the middle of prayer the Pt. reached for her phone to make a phone call. Finished the prayer, and Pt. verbalized gratitude for the spiritual care visit.
--- NOTE | 2023-01-21 14:54 | NUR ---
Pt resting in bed upon arrival wearing her home trilogy. Pt's roommate/SO Clifton at bedside. Pt A&OX4 and denies pain at this time. Engaged in therapeutic discussion regarding advanced care planning. Educated on disease process including trajectory. Discussed the importance of planning for the future as disease progresses. Discussed the potential need to consider hospice in the future as disease progresses. Educated on hospice philosophy with V/U made by Pt and SO Clifton. Pt reporting wanting to start hospice services as soon as possible. She reports wanting to stay home and focus on quality of life. Pt would like [facility]. Called and spoke with Deborah at [facility]. She reports hospice can cover BIPAP or CPAP but not trilogy. Pt can be admitted on services Friday. Spoke with RT Gardner and discussed case. Kendra speaks with Pt regarding BIPAP vs Trilogy. Pt agreeable for BIPAP when she goes home on hospice services. Spoke with Dr Tucker and discussed case. Palliative Care will remain available
[2023-01-21 16:56] VITALS: BP 135/74
--- NOTE | 2023-01-21 17:46 | NUR ---
shift summary pt a&ox4, somewhat anxious. sp02>90% on bipap, though desats w/ activity. figets with mask often. airvo when eating for short durations. telemetry shows sinus tach, hr mostly 100's-110's. up to bsc to void. denies pain. in room this afternoon. palliative care in room this afternoon. call light in reach.
[2023-01-21 19:58] VITALS: BP 121/91
--- NOTE | 2023-01-21 21:22 | NUR ---
SAFETY & EDUCATION / ASSUMPTION OF CARE PT & FAMILY EDUCATED RE: IGNITION SOURCES AND RISK OF INJURY WHILE OXYGEN IS IN USE. PT DENIES SMOKING & PT AND FAMILY VERBALIZE UNDERSTANDING. PT A&Ox4, CALLS AND COMMUNICATES NEEDS APPROPRIATELY. BP STABLE, ST 100-110's, DENIES CP/PRESSURE. SpO2> 92% ON HOME TRIOLOGY WITH 15L BLEED IN, DENIES SOB. CONTINENT OF URINE, 1 ASSIST TO BSC. PT REPORTED FEELING ANXIOUS, MEDICATED PER EMAR. BED IN LOWEST POSITION, CALL LIGHT IN REACH, BED ALARM ON.
[2023-01-21 23:20] VITALS: BP 117/77
[2023-01-22 04:00] VITALS: BP 116/74
--- NOTE | 2023-01-22 07:33 | NUR ---
SHIFT SUMMARY SEE PREVIOUS NOTE. NO ACUTE CHANGES. PT SLEPT COMFORTABLY. VSS.
[2023-01-22 09:10] VITALS: BP 117/22; BP 117/78
--- NOTE | 2023-01-22 13:57 | NUR ---
Brief supportive visit this afternoon. Pt denies pain at this time. Discussed D/C plan with hospice services Friday. Pt reports being in agreement. Pt reports being tired. Ended visit to allow Pt to rest. Palliative Care will remain available
--- NOTE | 2023-01-22 16:13 | NUR ---
ASSUMED CARE OF PT AT 0700 THIS AM. PT ON TRIOLOGY MOSTLY, DID TOLERATE BEING ON AIRVO FOR A SHORT TIME TO EAT BREAKFAST. APPEARED TO SLEEP FOR MOST OF THE AM AFTER BREAKFAST. OOB TO BEDSIDE COMMODE DESPITE THIS RN EXPLAINING TO HER THAT SHE IS TOO UNSTEADY, PT REFUSES PUREWICK CATHETER. PT IS EXHAUSED EASILY, SPO2 DROPS INTO 70s, PT HAS SPASMIC MUSCLE MOVEMENTS AND WILL SUDDENLY JERK IN AN UNEXPECTED DIRECTION WHEN OOB. STAFF REQUIRED TO BE AT PT'S SIDE AT ALL TIMES WHEN OOB. OXYGEN NEEDS INCREASED IN THE EARLY AFTERNOON FROM 15L TO 20L, RT AT BEDSIDE TO EVALUATE, DR SCOTT NOTIFIED. PT HAD LARGE BROWN FORMED BOWEL MOVEMENT TODAY. ORDER OBTAINED TO TRANSFER PT TO MEDICAL FLOOR WITHOUT TELEMETRY. REPORT GIVEN TO JOSE MARVIN, PT TRANSFERRED TO ROOM 360 WITH ALL BELONGINGS, PT'S SO AT BEDSIDE FOR TRANSFER.
[2023-01-22 16:27] VITALS: BP 134/89
[2023-01-22 16:28] VITALS: BP 134/89
--- NOTE | 2023-01-22 16:30 | NUR ---
PT ARRIVED TO ROOM VIA BED FROM PCU. SETTLED IN TO ROOM AND TRILOGY SET UP. S.O. AT BEDSIDE. PT VERY ANXIOUS AND WANTS CONTINUOUS PULSE OX WHER SHE CAN SEE IT. O2 20L/M TO TRILOGY PER SUPERVISOR TUMBLERS. DISCUSSED A MEDINA WITH PT TO EASE RESP DIFFICULTY WITH USING COMMODE. NEEDED TO VOID SOON AFTER AND ASSISTED TO COMMODE WITH A LOT OF MUSCLE JERKING MOVEMENTS. ABLE TO STAND AND TURN BUT THEN LEANED FORWARD ON TO BED TO EASE THE JERKING MOTIONS. ASKING FOR BE GIVEN ANTIANXIETY MEDS.
--- NOTE | 2023-01-22 19:16 | NUR ---
SLEEPING SINCE ATIVAN GIVEN. TRILOGY ON AND SATS LOW 90'S AFTER RECOVERY. REPORT GIVEN TO ONCOMING SHIFT.
[2023-01-22 19:40] VITALS: BP 118/78
[2023-01-23 04:38] VITALS: BP 105/42
--- NOTE | 2023-01-23 06:54 | NUR ---
SHIFT SUMMARY AT CHANGE OF SHIFT PT S/P WITH 2 RNS TO COMMODE. VERY UNSAFE TRANSFER, PT HAD SEVERAL JERKS WHERE SHE ALMOST FELL AND WE WERE HOLDING HER FROM FALLING. PT WAS ON TRILIGEY AND SHE DESAT TO 72% AND TOOK OVER 15 MINUTES TO RECOVER BACK TO 88-90% SPO2. PT DID URINATE AND HAVE A MEDIUM SIZED FORMED BM. PT FREQUENTLY DESATTING TO 70'S. RT CALLED AND STATED SHES MAXED OUT THERES NOT MUCH THAT CAN BE DONE. HOWEVER UNCOMFORTABLE ABOUT LEAVING THE PATIENT THIS LOW WITH HER SPO2, HAD HEALTH CARE FACILITY ADMINISTRATORSHAVONNE WATERS COME SEE PATIENT. RT RETURNED TO ROOM AND IMPROVED HER SPO2 TO 90%. PT REQUSTED ANXIETY MEDICATION, AFTER ADMIN PT BECAMED SLEEPY AND DROPPING HER SATS TO 62% CONSISTENTLY UNABLE TO KEEP PT AWAKE LONG ENOUGH TO IMPROVE SATS. RT NOTIFIED AND SAID THEY WOULD BE UP WHEN THEY CAN, BUT SHE LIVES LOW AND THE O2 PLETH MUST NOT BE CORRECT. VERIFIED THIS WITH ANOTHER VS MACHINE. NOTIFIED EVELIN MARVIN AGAIN WHO CALLED RT AND SPOKE TO THE PATIENT TO HAVE HER AGREE TO AIRVO. PT PLACED ON THAT AND HER SATS IMPROVED ABOVE 90% AFTER A FEW MINUTES. RT THEN SWITCHED CONNECTIONS OF HER TRILEGY TO DELIVER THE O2 DIFFERENTLY AND SUPPORT THE PATIENTS COMFORT AND PREFERENCE OF USING TRILEGY INSTEAD. PT O2 SATS FOR THE REMAINDER OF THE NIGHT WERE AROUND 98%. MEDINA PLACED THIS AM AROUND 0640 PER ORDER AND PT AGREEANCE. Q1H FIRE SAFETY CHECKS COMPLETED, NO IGNITION SOURCES FOUND EVELIN MARVIN AGAIN WHO CAME TO BEDSIDE AND
[2023-01-23 08:06] VITALS: BP 105/65
--- NOTE | 2023-01-23 11:15 | NUR ---
Spiritual Care Visit. Pt. is resting in her bed, but responds when I enter the room. Pt. displays evidence of being aware that her condition is not improving. Pt. verbalizes that she has agreed to go home on hospice. Through empathetic listening and a calming presence Pt. verbalizes that she is sad, but committed to being discharged on hospice. Pt. welcomed prayer by reahcing out her hand. Holding her hand this manager philosophy prayed for the Pt. Pt. gently verbalized gratitude for the spiritual care visit and welcomed this manager philosophy to return until her discharge.
--- NOTE | 2023-01-23 13:18 | NUR ---
Supportive visit this afternoon. Pt resting in bed eating lunch. Pt's SO/roommate Clifton and son Connie at bedside. Pt and family agree with plan to D/C home with hospice tomorrow. Pt and family agreeable to complete POLST. Assisted with completing POLST. Pt's wishes on POLST DNR and Comfort Measures Only. Dr Ley in to speak with Pt and reviews plan of care. Dr Ley discusses trialing Pt on Roxanol to assist with her air hunger. Pt and family agreeable. Dr Ley signs POLST. Obtained copies of POLST. Sent one copy to medical records vis [facility]. Gave son another copy and original POLST. Son will give copy of POLST to hospice when they arrive to home. Placed order for Roxanol 5mg SL every 4 hours as needed for pain or air hunger per V/O from Dr Ley. Palliative Care will remain available
[2023-01-23 15:36] VITALS: BP 127/85
--- NOTE | 2023-01-23 18:33 | NUR ---
SHIFT SUMMARY PT MUCH CALMER TODAY. USING TRILOGY AND TRANSFERRING FROM THAT TO AIRVO FOR EATING. STATES SHE FEELS CALMER THAN YESTERDAY. NO COMPLAINTS ABOUT CATHETER AND USED BEDPAN FOR A SMALL FORMED STOOL THIS MORNING. FAMILY IN AND OUT OF ROOM. MEDICATED WITH ATIVAN ONCE TODAY BUT REMAINED AWAKE MOST OF THE DAY. PLANS FOR PT TO DISCHARGE ABOUT 11 TOMORROW FOR APPT WITH [facility]. WAS FOUND ON VISITOR BED EARLIER TODAY AND SHE SAID SHE DIDN'T KNOW WHY BUT SHE FELT SHE NEEDED TO BE THERE. ASSISTED BACK TO BED AND SETTLED DOWN.
[2023-01-23 19:51] VITALS: BP 103/67
[2023-01-24 02:57] VITALS: BP 122/77
[2023-01-24 08:02] VITALS: BP 125/79
[2023-01-24 08:05] VITALS: BP 125/79
[2023-01-24] MEDS ORDERED: ACET325 PO ×2 (08:57)
--- NOTE | 2023-01-24 12:48 | NUR ---
Patient on BIPAP w/ 30L bleed in, RT to manage respiratory equipment. Patient reporting severe air hunger & anxiety this AM, requesting PRNs for comfort. Patient unable to tolerate oxymizer, she removes BIPAP to eat and drink. EMS arrived at 1215, RT assisted with setting up oxygen equipment. Family aware, and waiting for patient. Roxinol given for anxiety/air hunger before leaving hospital.
== END 2023-01-24 12:30 | disposition hospice, home (50) | DRG 177 ==
LOC: ER 23:46 → ICUE 01-15 01:32 → PCU 01-15 01:32 → MEDS 01-15 01:32 → ICUE 01-15 02:26 → PCU 01-17 21:25 → MEDS 01-22 15:51 → ENPENDDIS 01-24 08:48 → MEDS 01-24 12:30
PROVIDERS: Emergency Medicine; Internal Medicine; Internal Medicine Critical Care Medicine; Student in an Organized Health Care Education/Training Program; ADMIT Internal Medicine
PROC: 5A09457 Assistance with Respiratory Ventilation, 24-96 Consecutive Hours, Continuous Positive Airway Pressure (ICD-10-PCS; principal; 2023-01-15)
PROC: 4A033R1 Measurement of Arterial Saturation, Peripheral, Percutaneous Approach (ICD-10-PCS; 2023-01-15)
DX: J15.6 Pneumonia due to other Gram-negative bacteria (principal); G92.8 Other toxic encephalopathy; J96.21 Acute and chronic respiratory failure with hypoxia; J96.22 Acute and chronic respiratory failure with hypercapnia; R65.11 Systemic inflammatory response syndrome (SIRS) of non-infectious origin with acute organ dysfunction; J44.1 Chronic obstructive pulmonary disease with (acute) exacerbation; F32.A Depression, unspecified; Z66 Do not resuscitate; F15.10 Other stimulant abuse, uncomplicated; G43.909 Migraine, unspecified, not intractable, without status migrainosus; E87.8 Other disorders of electrolyte and fluid balance, not elsewhere classified; G47.33 Obstructive sleep apnea (adult) (pediatric); Z88.5 Allergy status to narcotic agent; Z88.7 Allergy status to serum and vaccine; Z79.899 Other long term (current) drug therapy; Z79.2 Long term (current) use of antibiotics; Z88.0 Allergy status to penicillin; Z99.81 Dependence on supplemental oxygen; Z90.49 Acquired absence of other specified parts of digestive tract; Z87.891 Personal history of nicotine dependence; Z98.890 Other specified postprocedural states
CPT/HCPCS: 36415; 36600; 71045; 80048; 80053; 82803; 82947; 83605; 84484; 85014; 85018; 85025; 87040; 87070; 87205; 93005; 93010; 93306; 94640; 94644; 94645; 94660; 94664; 94760; 94762; 96374; 96375; 99285-25; A9270; C1751; C9113; J0696; J0713; J1650; J1956; J2060; J2920; J2930; J7030; J7050; J7512

== ENCOUNTER 2023-01-24 14:18 | Emergency (ER) | payer OTHER ==
[~2023-01-24] VITALS: Ht 170.2 cm; Wt 72.6 kg
== END 2023-01-24 16:24 | disposition home or self-care (01) ==
LOC: ER 14:18
DX: Z76.0 Encounter for issue of repeat prescription (principal); Z51.5 Encounter for palliative care; Z66 Do not resuscitate; Z88.0 Allergy status to penicillin; Z88.7 Allergy status to serum and vaccine; Z88.5 Allergy status to narcotic agent; Z79.899 Other long term (current) drug therapy; Z79.52 Long term (current) use of systemic steroids; J44.9 Chronic obstructive pulmonary disease, unspecified; J45.909 Unspecified asthma, uncomplicated; G43.909 Migraine, unspecified, not intractable, without status migrainosus; G47.33 Obstructive sleep apnea (adult) (pediatric); Z87.891 Personal history of nicotine dependence
CPT/HCPCS: 99284-25